=== PATIENT | male | born 1965 | race Caucasian/White ===

== ENCOUNTER 2016-08-25 20:32 | Emergency (ER) | payer MEDICARE, OTHER ==
[2016-08-25] MEDS ORDERED: SODIUM CHLORIDE 0.9% 1000ML 1,000 ML IVS ONE (21:10)
[2016-08-25] MEDS ORDERED: hydrOXYzine HCl 25 MG TAB PO ONE (21:26)
[2016-08-25] MEDS ORDERED: ALUMINUM & MAGNESIUM HYDROXIDE 30 ML UD PO ONE (21:55)
[2016-08-25] MEDS ORDERED: PROMETHAZINE HCL 25 MG TAB PO ONE (21:55)
[2016-08-26] MEDS ORDERED: NALOXONE HCL INJ 0.4 MG/ML VIAL IV ONE ×3 (02:55→06:19)
[2016-08-26] MEDS ORDERED: SODIUM CHLORIDE 0.9% 1000ML 1,000 ML IVS ONE (03:11)
[2016-08-26] MEDS ORDERED: SODIUM CHLORIDE 0.9% 1000ML 1,000 ML ONE (03:11)
[2016-08-26] MEDS ORDERED: NALOXONE HCL INJ 0.4 MG/ML VIAL ONE (03:54)
--- NOTE | 2016-08-26 04:20 | ED.PDOC ---
History of Present Illness - General Source: patient, family Exam Limitations: no limitations - History of Present Illness Initial Comments: The patient is a 51-year-old male presenting to the emergency room after 6-8 hours of showing some mild confusion and dizziness. He has taken significantly more than his normal dose of morphine today in trying to get control of his ulnar neuropathy pain. He reports taking 8 of his 15 mg extended release morphine with the last being approximately 3 hours prior to his arrival here. He is also taking 2 of his higher dose Valium again with the last being approximately 3 hours prior to his arrival here. essentially brought him in due to confusion for fear of an overdose. There was no overdose with intent on self-harm. He is not having depression issues. He is scheduled to getan ulnar nerve release in the near future. Upon arrival here he has a little bit drowsy. He is talking to his and making perfect sense when I see him. vital signs are reassuring including oxygen saturations greater than 95% on room air. The patient is normotensive. He is ambulatory. No evidence of any trauma. He does have some mild nausea and he does have some mild itching which are certainly no surprise given the doses of medications he is taking. He is having some mild reflux symptoms currently to go along with it. EKG was performed for completion sake essentially. Timing/Duration: 4-6 hours Severity: moderate Improving Factors: nothing Worsening Factors: nothing Associated Symptoms: malaise, weakness <John Barroso - Last Filed: 08/26/16 06:53> <Gabriel Winston - Last Filed: 08/26/16 09:05> - General Chief Complaint: Drug or Alcohol Abuse Stated Complaint: Lethargy Time Seen by Provider: 08/25/16 20:37 - History of Present Illness Allergies/Adverse Reactions: Allergies Sulfa Antibiotics Adverse Reaction (Verified 05/07/16 20:33) Home Medications: Ambulatory Orders Bupropion HCl [Wellbutrin Xl] 150 mg PO DAILY 02/18/16 Cholecalciferol [Vitamin D3] 1,000 unit PO DAILY 02/18/16 Simvastatin [Zocor] 20 mg PO DAILY 02/18/16 Zolpidem Tartrate [Ambien Cr] 12.5 mg PO BEDTIME 02/18/16 Morphine Sulfate [Morphine Sulfate ER] 15 mg PO PRN PRN 08/25/16 diazePAM [Valium] 10 mg PO BID PRN 08/25/16 Review of Systems - Review of Systems Constitutional: States: malaise EENTM: States: no symptoms reported Respiratory: States: no symptoms reported Cardiology: States: chest pain - with his reflux symptoms Gastrointestinal/Abdominal: States: nausea Genitourinary: States: no symptoms reported Musculoskeletal: States: other - hronic pain Skin: States: other - diffuse itching but no rash Neurological: States: weakness - mild and generalized. Sleepy. Endocrine: States: no symptoms reported All other Systems: No Change from Baseline <John Barroso - Last Filed: 08/26/16 06:53> Past Medical History (General) - Patient Medical History Hx Seizures: No Hx Stroke: No Hx Dementia: No Hx Asthma: No Hx of COPD: No Hx Cardiac Disorders: No Hx Congestive Heart Failure: No Hx Pacemaker: No Hx Hypertension: No Hx Thyroid Disease: No Hx Diabetes: No Hx Gastroesophageal Reflux: No Hx Renal Disease: No Hx Cancer: No Hx of HIV: No Hx Hepatitis C: No Hx MRSA: No - Vaccination History Hx Tetanus, Diphtheria Vaccination: Yes Hx Influenza Vaccination: No Hx Pneumococcal Vaccination: No Immunizations Up to Date: Yes - Social History Hx Tobacco Use: Yes Hx Chewing Tobacco Use: No Hx Alcohol Use: Yes - social none today Hx Substance Use: No Hx Substance Use Treatment: No Hx Depression: No Hx Physical Abuse: No Hx Emotional Abuse: No Hx Suspected Abuse: No - Female History Patient : No <John Barroso - Last Filed: 08/26/16 06:53> Family Medical History - Family History Father Hx Family Hypertension: Yes <Naun Barrosolesley Smith - Last Filed: 08/26/16 06:53> Physical Exam - Physical Exam General Appearance: Alert, Comfortable, No apparent distress Eye Exam: bilateral normal Ears, Nose, Throat: normal ENT inspection, normal pharynx Neck: non-tender, supple Respiratory: chest non-tender, lungs clear, normal breath sounds, no respiratory distress, no accessory muscle use - the patient is taking good deep breaths. No rales. 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, alert, normal mood/affect - again mildly drowsy, oriented x 3 Skin Exam: normal color Comments: Vital Signs - 24 hr 08/25/16 08/25/16 08/25/16 20:41 20:42 21:43 Temperature 97.2 F L Pulse Rate 88 Pulse Rate [ 88 88 68 Right Radial] Respiratory 16 16 20 Rate Blood Pressure 129/72 111/72 [Right Arm] O2 Sat by Pulse 99 98 Oximetry 08/25/16 08/25/16 08/26/16 22:00 23:00 00:00 Temperature Pulse Rate Pulse Rate [ 70 80 80 Right Radial] Respiratory 16 16 16 Rate Blood Pressure 113/72 108/60 102/68 [Right Arm] O2 Sat by Pulse 98 96 95 Oximetry 08/26/16 08/26/16 08/26/16 01:00 02:00 03:03 Temperature Pulse Rate Pulse Rate [ 80 80 80 Right Radial] Respiratory 16 16 16 Rate Blood Pressure 116/90 110/79 107/60 [Right Arm] O2 Sat by Pulse 96 95 96 Oximetry 08/26/16 08/26/16 03:10 03:34 Temperature Pulse Rate Pulse Rate [ 64 65 Right Radial] Respiratory 12 12 Rate Blood Pressure 78/40 109/71 [Right Arm] O2 Sat by Pulse 93 L 95 Oximetry <John Barroso L - Last Filed: 08/26/16 06:53> Progress - Progress Progress: 08/26/16 04:24 the patient is a 51-year-old male presenting with an opiate and benzodiazepine overdose. The patient is being monitored for extended period of time due to the morphine being extended release. The patient has shown expected drowsiness but has held his oxygen saturations consistently above 93% on room air. We have encouraged him for a little bit of supplemental oxygen but he keeps pulling it off. Around 3 AM his blood pressures started dropping some. He was given a second liter of IV fluids. Blood pressures have come back up a little bit but not to the point where we are comfortable. The patient was given 0.4 mg of Narcan IV antibiotic. he arouses more easily. He knows where he is and what is going on. blood pressures have corrected with systolic blood pressures being above 100. He is taking good deep breaths. where as lab work to this point had seemed unnecessary, we are going to go ahead and check basic laboratory panels and make sure we are not having any significant undetected changes to this point. If his bicarbonate level is low then we will proceed with an ABG to evaluate for the possibility of CO2 retention. Again at this time he is drowsy but easily rousable, cooperative and oriented and in no clinical obvious distress. He will not receive further IV fluids. obviously, the small dose of Narcan is not meant as a full reversal dose of the 120 mg of morphine he has taken over the last day. That is not our goal. It is simply to maintain the patient in a easily rousable to mildly agitated state to prevent hypotension and hypoventilation. repeat small Narcan doses will be used as needed to this end. We will continue to replace the oxygen cannula to try to keep saturations greater than 95%, though he is still largely achieving this without supplemental oxygen. No evidence of fluid overload on his pulmonary exam at this time. time is 6:50 AM. The patient has required some repeat dosings of the Narcan. We are going to place him on a low-dose Narcan drip at a milligram per hour for the next several hours anyway. Hypotension has not returned however when the Narcan wears off, his respiratory rate drops to 8-10 breaths per minute and his oxygen saturations drop to around 90%. laboratory work including ABG is reassuring. PH is normal along with a PaCO2 that is only very slightly elevated. The patient will likely require 3-4 hours for further monitoring based on his last ingestion. The patient will be signed off to Dr. Winston for further management. - Results/Orders Results/Orders: Laboratory Tests 08/25/16 08/26/16 08/26/16 21:00 04:12 05:00 WBC 3.9 L RBC 4.03 L Hgb 12.6 L Hct 36.9 L MCV 91.5 MCH 31.2 H MCHC 34.1 RDW 13.3 Plt Count 200 MPV 7.9 Absolute Neuts (auto) 1.10 L Absolute Lymphs (auto) 2.30 Absolute Monos (auto) 0.40 Absolute Eos (auto) 0.10 Absolute Basos (auto) 0.00 Neutrophils % 28.1 L Lymphocytes % 57.5 H Monocytes % 9.9 H Eosinophils % 3.3 Basophils % 1.2 pCO2 47 pO2 65 L HCO3 25.1 ABG pH 7.350 ABG O2 Saturation 94.1 L ABG Base Excess -0.3 ABG Deoxyhemoglobin 5.8 H Oxyhemoglobin % 92.1 L Carboxyhemoglobin % 1.2 Methemoglobin % Sat 0.8 Calc Total Hemoglobin 11.9 L Sodium 140 Potassium 3.9 Chloride 110 Carbon Dioxide 26 Anion Gap 7.9 L BUN 14 Creatinine 1.06 BUN/Creatinine Ratio 13.2 Random Glucose 81 Serum Osmolality 278.9 Calcium 8.3 L Total Bilirubin 0.6 AST 17 ALT 21 Alkaline Phosphatase 70 Creatine Kinase 95 CK-MB (CK-2) 0.9 CK-MB (CK-2) % Not Reportable Troponin I < 0.02 B-Natriuretic Peptide < 5.0 Serum Total Protein 5.7 L Albumin 3.4 Globulin 2.3 Albumin/Globulin Ratio 1.5 Urine Opiates Screen Positive H Urine Barbiturates Negative Ur Phencyclidine Scrn Negative U Amphetamin/Meth Scrn Negative U Benzodiazepines Scrn Positive H U Cocaine Metab Screen Negative U Cannabinoids Screen Negative EKG shows normal sinus rhythm. axis has a slight left shift. Early right bundle branch block noted. No acute ST segment changes concerning for ischemia. This is consistent with an EKG from March 2016. <John Barroso - Last Filed: 08/26/16 06:53> - Progress Progress: 08/26/16 09:01 Narcan drip was stopped at 8:00 am . At 9 am the patient was alert and at his baseline. His vital signs were stable and within normal limits for a full hour. ER warnings given and the patient has a significant other that is staying with him. <Gabriel Winston - Last Filed: 08/26/16 09:05> Departure <John Barroso - Last Filed: 08/26/16 06:53> - Departure Diet: resume usual diet Activity: increase activity as tolerated <Gabriel Winston - Last Filed: 08/26/16 09:05> - Departure Clinical Impression: Narcosis due to intentional non-suicidal narcotic use Disposition: Discharge to Home or Self Care Condition: Good Referrals: Jose Ceballos MD [Primary Care Provider] - 1-2 Weeks Home Medications: Ambulatory Orders Bupropion HCl [Wellbutrin Xl] 150 mg PO DAILY 02/18/16 Cholecalciferol [Vitamin D3] 1,000 unit PO DAILY 02/18/16 Simvastatin [Zocor] 20 mg PO DAILY 02/18/16 Zolpidem Tartrate [Ambien Cr] 12.5 mg PO BEDTIME 02/18/16 Morphine Sulfate [Morphine Sulfate ER] 15 mg PO PRN PRN 08/25/16 diazePAM [Valium] 10 mg PO BID PRN 08/25/16 Additional Instructions: Return to the ER for slow breathing, sleepiness, lethargy, or altered mental status. Refrain from use of pain medications today. Addendum entered and electronically signed by John Barroso MD 08/26/16 06:54 : Departure - Departure Disposition: Discharge to Home or Self Care Referrals: Jose Ceballos MD [Primary Care Provider] - 1-2 Weeks Home Medications: Ambulatory Orders Bupropion HCl [Wellbutrin Xl] 150 mg PO DAILY 02/18/16 Cholecalciferol [Vitamin D3] 1,000 unit PO DAILY 02/18/16 Simvastatin [Zocor] 20 mg PO DAILY 02/18/16 Zolpidem Tartrate [Ambien Cr] 12.5 mg PO BEDTIME 02/18/16 Morphine Sulfate [Morphine Sulfate ER] 15 mg PO PRN PRN 08/25/16 diazePAM [Valium] 10 mg PO BID PRN 08/25/16 ED Addendum - ED Addendum Addendum: critical care time spent by me on this overdose patient with respiratory depression is 40 minutes excluding other billable procedures.
[2016-08-26] MEDS ORDERED: NALOXONE HCL IV ONE (06:44)
[2016-08-26] MEDS ORDERED: SODIUM CHLORIDE 0.9% IV ONE (06:44)
[2016-08-26] MEDS ORDERED: SODIUM CHLORIDE 0.9% 500ML 500 ML ONE (06:53)
[2016-08-26] MEDS ORDERED: NALOXONE HCL INJ 1 MG/ML SYG ONE (06:53)
[2016-08-26 09:19] VITALS: BP 117/78; TEMP 97; O2SAT 95
== END 2016-08-26 09:24 | disposition home or self-care (01) ==
LOC: ER 20:32
DX: T40.2X1A Poisoning by other opioids, accidental (unintentional), initial encounter (principal); T42.4X1A Poisoning by benzodiazepines, accidental (unintentional), initial encounter; J70.4 Drug-induced interstitial lung disorders, unspecified; R06.89 Other abnormalities of breathing; G56.20 Lesion of ulnar nerve, unspecified upper limb; Z79.899 Other long term (current) drug therapy; Z88.2 Allergy status to sulfonamides; Z87.891 Personal history of nicotine dependence; I45.10 Unspecified right bundle-branch block
CPT/HCPCS: 80053; 80307; 82550; 82553; 83880; 84484; 85025; 93005; J2310; J7030; J7040; Q0169

== ENCOUNTER 2016-09-02 00:15 | Emergency (ER) | payer MEDICARE, OTHER ==
[2016-09-02] MEDS ORDERED: KETOROLAC TROMETHAMINE INJ 30 MG/ML VIAL IV ONE (00:54)
[2016-09-02] MEDS ORDERED: methylPREDNISolone SODIUM SUC 125 MG/2 ML VIAL IV ONE (00:54)
--- NOTE | 2016-09-02 00:54 | ED.PDOC ---
History of Present Illness - General Chief Complaint: Back Pain or Injury Stated Complaint: right arm and neck pain, stumbling, falls Time Seen by Provider: 09/02/16 00:16 - History of Present Illness Allergies/Adverse Reactions: Allergies Sulfa Antibiotics Adverse Reaction (Verified 05/07/16 20:33) Home Medications: Ambulatory Orders Bupropion HCl [Wellbutrin Xl] 150 mg PO DAILY 02/18/16 Cholecalciferol [Vitamin D3] 1,000 unit PO DAILY 02/18/16 Simvastatin [Zocor] 20 mg PO DAILY 02/18/16 Zolpidem Tartrate [Ambien Cr] 12.5 mg PO BEDTIME 02/18/16 Morphine Sulfate [Morphine Sulfate ER] 15 mg PO PRN PRN 08/25/16 diazePAM [Valium] 10 mg PO BID PRN 08/25/16 Past Medical History (General) - Patient Medical History Hx Seizures: No Hx Stroke: No Hx Dementia: No Hx Asthma: No Hx of COPD: No Hx Cardiac Disorders: No Hx Congestive Heart Failure: No Hx Pacemaker: No Hx Hypertension: No Hx Thyroid Disease: No Hx Diabetes: No Hx Gastroesophageal Reflux: No Hx Renal Disease: No Hx Cancer: No Hx of HIV: No Hx Hepatitis C: No Hx MRSA: No Surgical History: other - Vaccination History Hx Tetanus, Diphtheria Vaccination: Yes Hx Influenza Vaccination: No Hx Pneumococcal Vaccination: No Immunizations Up to Date: Yes - Social History Hx Tobacco Use: Yes Cigarettes Packs Per Day: 1 Hx Chewing Tobacco Use: No Hx Alcohol Use: Yes - social none today Hx Substance Use: No Hx Substance Use Treatment: No Hx Depression: No Hx Physical Abuse: No Hx Emotional Abuse: No Hx Suspected Abuse: No - Female History Patient : No Family Medical History - Family History Father Hx Family Hypertension: Yes Progress - Progress Progress: 09/02/16 01:33 Had extensive conversation with patient and regarding his narcotic and controlled medication use. He denies taking any Morphine today but took 2 Valium and 4 ambien. Could not pull him up in the state controlled substances database, said no report meaning no medications filled in the past year. Called [place] in [place]. Report filled #[id number] Morphine on 08/15/16 and stopped Ambien and Valium. Gave Steroids and Toradol. Will give 1mg only of Dilaudid and will d/c home. Stressed that ER is not the appropriate location for his chronic pain treatment since he is on medication and was seen here a week ago with an overdose. Departure - Departure Clinical Impression: Chronic neck pain Time of Disposition: 01:37 Disposition: Discharge to Home or Self Care Condition: Good Departure Forms: ED Discharge - Pt. Copy, Patient Portal Self Enrollment Instructions: Chronic Neck Pain Diet: resume usual diet Activity: increase activity as tolerated Referrals: Jose Ceballos MD [Primary Care Provider] - 1-2 Days Home Medications: Ambulatory Orders Bupropion HCl [Wellbutrin Xl] 150 mg PO DAILY 02/18/16 Cholecalciferol [Vitamin D3] 1,000 unit PO DAILY 02/18/16 Simvastatin [Zocor] 20 mg PO DAILY 02/18/16 Zolpidem Tartrate [Ambien Cr] 12.5 mg PO BEDTIME 02/18/16 Morphine Sulfate [Morphine Sulfate ER] 15 mg PO PRN PRN 08/25/16 diazePAM [Valium] 10 mg PO BID PRN 08/25/16 Additional Instructions: Call Neurosurgeon and pain management in morning to arrange follow up.
[2016-09-02] MEDS ORDERED: HYDROmorphone HCL INJ 2 MG/ML VIAL IV ONE (01:32)
[2016-09-02 01:54] VITALS: BP 115/93; TEMP 98.2; O2SAT 96
== END 2016-09-02 01:57 | disposition home or self-care (01) ==
LOC: ER 00:15
DX: G89.29 Other chronic pain (principal); M54.2 Cervicalgia; F17.210 Nicotine dependence, cigarettes, uncomplicated; Z88.2 Allergy status to sulfonamides; Z79.899 Other long term (current) drug therapy; Z91.81 History of falling
CPT/HCPCS: J1170; J1885; J2930

== ENCOUNTER 2016-10-16 16:28 | Emergency (ER) | payer MEDICARE, OTHER ==
[2016-10-16] MEDS ORDERED: ASPIRIN TABLET 325 MG TAB PO ONE (16:44)
[2016-10-16] MEDS ORDERED: SODIUM CHLORIDE 0.9% (FLUSH) 10 ML SYG IV PRN (16:44)
[2016-10-16] MEDS ORDERED: ONDANSETRON INJ 4 MG/2 ML VIAL IV ONE ×2 (16:44→18:14)
[2016-10-16] MEDS ORDERED: MORPHINE SULFATE INJ 10 MG/ML VIAL IV ONE ×2 (16:47→17:09)
--- NOTE | 2016-10-16 16:54 | ED.PDOC ---
History of Present Illness - General Chief Complaint: Chest Pain/SD Stated Complaint: chest discomfort Time Seen by Provider: 10/16/16 16:43 Source: patient, family Exam Limitations: no limitations Additional Information: 2 DAYS OF CONSTANT CHEST PAIN, FATIGUE SWEATS, SOB, HE, COUGH, NAUSEA. PMH: ADDERALL FOR ADHD. CARDIAC HX: HEART CATH 20 YRS AGO FOR CP, WAS NEG. SH: SMOKES 1/3 TO 1/2 PPD. - History of Present Illness Timing/Duration: days Severity: severe Location: substernal, back Activities at Onset: none Improving Factors: nothing Worsening Factors: movement Nitro Today/Relief: no nitro taken today Aspirin Treatment Today: no aspirin today Associated Symptoms: chest pain, cough, diaphoresis, headaches, malaise, nausea/ vomiting, shortness of breath Allergies/Adverse Reactions: Allergies Sulfa Antibiotics Adverse Reaction (Verified 10/16/16 16:41) Home Medications: Ambulatory Orders Bupropion HCl [Wellbutrin Xl] 150 mg PO DAILY 02/18/16 Simvastatin [Zocor] 20 mg PO DAILY 02/18/16 Amphetamine-Dextroamphetamine [Adderall] 20 mg PO DAILY 10/16/16 Venlafaxine Xr [Effexor XR] 75 mg PO DAILY 10/16/16 Review of Systems - Review of Systems Constitutional: States: diaphoresis, weakness. Denies: chills, fever EENTM: Denies: ear pain, nose congestion Respiratory: States: cough, short of breath. Denies: wheezing Cardiology: States: chest pain. Denies: edema, palpitations, syncope Gastrointestinal/Abdominal: States: no symptoms reported Genitourinary: States: no symptoms reported Musculoskeletal: States: back pain, neck pain Skin: States: no symptoms reported Neurological: States: headache Endocrine: States: no symptoms reported Hematologic/Lymphatic: States: no symptoms reported All other Systems: Reviewed and Negative Past Medical History (General) - Patient Medical History Hx Seizures: No Hx Stroke: No Hx Dementia: No Hx Asthma: No Hx of COPD: No Hx Cardiac Disorders: Yes - high cholesterol Hx Congestive Heart Failure: No Hx Pacemaker: No Hx Hypertension: No Hx Thyroid Disease: No Hx Diabetes: No Hx Gastroesophageal Reflux: No Hx Renal Disease: No Hx Cancer: No Hx of HIV: No Hx Hepatitis C: No Hx MRSA: No Surgical History: appendectomy - Vaccination History Hx Tetanus, Diphtheria Vaccination: Yes Hx Influenza Vaccination: No Hx Pneumococcal Vaccination: No - Social History Hx Tobacco Use: Yes Hx Chewing Tobacco Use: No Hx Alcohol Use: Yes - social none today Hx Substance Use: No Hx Substance Use Treatment: No Hx Depression: No Hx Physical Abuse: No Hx Emotional Abuse: No Hx Suspected Abuse: No - Female History Patient : No Family Medical History - Family History Father Hx Family Hypertension: Yes Physical Exam - Physical Exam General Appearance: Alert, Other - UNCOMFORTABLE Eyes, Ears, Nose, Throat Exam: PERRL/EOMI, normal ENT inspection, TMs normal, pharynx normal Neck: supple, other - NO JVD, NO BRUIT Respiratory: chest non-tender, lungs clear, normal breath sounds, no respiratory distress, no accessory muscle use Cardiovascular/Chest: normal peripheral pulses, regular rate, rhythm, no edema, no gallop, no JVD, no murmur Peripheral Pulses: radial,right: 2+, radial,left: 2+ Gastrointestinal/Abdominal: normal bowel sounds, non tender, soft Extremity: normal range of motion, non-tender, no pedal edema, no calf tenderness 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 TOBACCO USE DISORDER TACHYPNEA (RR 22) 10/16/16 17:04 10/16/16 18:57 CHEST PAIN AND NAUSEA BETTER. ALL WNL: CXR, EKG, CBC, CMP, D-DIMER, BNP, COAGS (EXCEPT CK), CARDIAC ENZYMES. CONTINUOUS CHEST PAIN X 2 DAYS, THUS IF WERE SD THE CARDIAC ENZYMES WOULD BE ELEVATED BY NOW, THUS SERIAL ENZYMES X 4 OVER 7 HRS IS NOT INDICATED. I AM JUST CHECKING A 2ND SET OF ENZYMES FOR COMPLETENESS. CREATINE KINASE IS SLIGHTLY HIGH (BUT NOT HIGH ENOUGH FOR RHABDOMYOLYSIS CONCERNS) AND STILL C/O FEELING DIAPHORETIC, THUS CHECKING TSH. IF TSH AND CARD ENZ NEG, THEN SAFE FOR DC TO HOME WITH F/U WITH PCP FOR FURTHER EVALUATION. 10/16/16 19:10 PT JUST REMEMBERED HE HASN'T TAKEN HIS EFFEXOR FOR THE PAST FEW DAYS. N/V, PÉREZ, DIZZINESS ARE SX OF ABRUPT CESSATION. 10/16/16 19:18 PT STATES HIS CP IS GONE BUT HEADACHE RETURNED. IT'S LOCATED BL BEHIND THE EYES. WILL GIVE IMITREX AND 02 IN EVENT IT IS CLUSTER PÉREZ. (NOTE: INTERACTION WARNING OF IMITREX AND EFFEXOR FOR POTENTIAL RISK OF SEROTONIN SYNDROME, BUT HAS NOT BEEN OFF HIS EFFEXOR, THUS HE'S NOT AT RISK FOR SEROTONIN SYNDROME.) 10/16/16 21:04 PÉREZ RESOLVED. TSH WNL. REPEAT CARD ENZ NEG. SAFE FOR DC TO HOME. Departure - Departure Clinical Impression: Atypical chest pain, Diaphoresis, Dyspnea, Nausea, Tobacco use disorder, Headache Disposition: Discharge to Home or Self Care Departure Forms: ED Discharge - Pt. Copy, Patient Portal Self Enrollment Instructions: DI for Atypical Chest Pain Diet: regular diet Activity: increase activity as tolerated Referrals: Jose Ceballos MD [Primary Care Provider] - 1-5 Days Home Medications: Ambulatory Orders Bupropion HCl [Wellbutrin Xl] 150 mg PO DAILY 02/18/16 Simvastatin [Zocor] 20 mg PO DAILY 02/18/16 Amphetamine-Dextroamphetamine [Adderall] 20 mg PO DAILY 10/16/16 Venlafaxine Xr [Effexor XR] 75 mg PO DAILY 10/16/16 Additional Instructions: Please resume your Effexor and avoid abruptly stopping it or any other medication without your regular doctor's direction. Medicines such as Effexor need to be tapered otherwise they can cause side effects such as headache, nausea, vomiting, dizziness. Please attempt to discontinue smoking. I hope you feel better soon.
[2016-10-16] MEDS ORDERED: NITROGLYCERIN 0.4 MG 25 EA TAB SL ONE (17:09)
--- NOTE | 2016-10-16 17:16 | RAD ---
EXAM DESCRIPTION: Chest,1 View CLINICAL HISTORY: 51 years Male, CHEST PAIN COMPARISON: March 28, 2016 TECHNIQUE: AP portable chest. FINDINGS: Fair expansion of the lungs is evident without consolidation, layering effusion, or large mass. Heart size and vascularity appear normal for AP technique and degree of inspiration. The aortic arch and descending aorta are modestly tortuous No gross bony, hilar, or mediastinal abnormalities are noted. IMPRESSION: Normal chest, one view Electronically signed by: Victoriano Betts MD 10/16/2016 5:15 PM CDT
[2016-10-16 19:05] VITALS: TEMP 97.7
[2016-10-16] MEDS ORDERED: SUMAtriptan SUCCINATE INJ 6 MG/0.5 ML VIAL SUBCU ONE ×2 (19:19→19:20)
[2016-10-16 21:16] VITALS: BP 125/84; O2SAT 95
== END 2016-10-16 21:10 | disposition home or self-care (01) ==
LOC: ER 16:28
DX: R07.89 Other chest pain (principal); R61 Generalized hyperhidrosis; R51 Headache; R06.00 Dyspnea, unspecified; F17.200 Nicotine dependence, unspecified, uncomplicated; F90.9 Attention-deficit hyperactivity disorder, unspecified type; Z79.899 Other long term (current) drug therapy; Z88.2 Allergy status to sulfonamides; E78.00 Pure hypercholesterolemia, unspecified
CPT/HCPCS: 36415; 71010; 80048; 82550; 82553; 83880; 84443; 84484; 85025; 85379; 85610; 85730; 93005; 94760; J2270; J2405; J3030

== ENCOUNTER 2016-11-09 17:46 | Emergency (ER) | payer MEDICARE, OTHER ==
[2016-11-09 18:02] VITALS: O2SAT 97
[2016-11-09] MEDS ORDERED: HYDROmorphone HCL INJ 2 MG/ML VIAL IM ONE (18:02)
--- NOTE | 2016-11-09 18:17 | ED.PDOC ---
History of Present Illness - General Source: patient, RN notes reviewed, Vital Signs reviewed Exam Limitations: no limitations - History of Present Illness Initial Comments: Woke up last night with right shoulder pain. Feels it has been moving forward through the day and is concerned it is dislocated. He has already had 3 surgeries on his shoulder. He is getting some numbness and tingling down his arm. Pain is worse with movement. Occurred: yesterday Pain - Upper Extremity: severe: Shoulder, right Method of Injury: unknown Improving Factors: immobilization Worsening Factors: movement <Neelam Patel - Last Filed: 11/09/16 18:53> <Triny Merchant - Last Filed: 11/09/16 20:36> - General Chief Complaint: Upper Extremity Injury Stated Complaint: right shoulder pain Time Seen by Provider: 11/09/16 17:58 - History of Present Illness Allergies/Adverse Reactions: Allergies Sulfa Antibiotics Adverse Reaction (Verified 10/16/16 16:41) Home Medications: Ambulatory Orders Bupropion HCl [Wellbutrin Xl] 150 mg PO DAILY 02/18/16 Simvastatin [Zocor] 20 mg PO DAILY 02/18/16 Amphetamine-Dextroamphetamine [Adderall] 20 mg PO DAILY 10/16/16 Venlafaxine Xr [Effexor XR] 75 mg PO DAILY 10/16/16 Naproxen [Naprosyn] 500 mg PO BID #30 tab 11/09/16 tiZANidine [Zanaflex] 4 mg PO TID PRN #30 tab 11/09/16 Review of Systems - Review of Systems Constitutional: States: no symptoms reported Respiratory: States: no symptoms reported Cardiology: States: no symptoms reported Musculoskeletal: States: see HPI, joint pain - right shoulder Skin: States: no symptoms reported Neurological: States: numbness, tingling. Denies: headache, weakness All other Systems: No Change from Baseline <Neelam Patel - Last Filed: 11/09/16 18:53> Past Medical History (General) - Patient Medical History Hx Seizures: No Hx Stroke: No Hx Dementia: No Hx Asthma: No Hx of COPD: No Hx Cardiac Disorders: Yes - high cholesterol Hx Congestive Heart Failure: No Hx Pacemaker: No Hx Hypertension: No Hx Thyroid Disease: No Hx Diabetes: No Hx Gastroesophageal Reflux: No Hx Renal Disease: No Hx Cancer: No Hx of HIV: No Hx Hepatitis C: No Hx MRSA: No - Vaccination History Hx Tetanus, Diphtheria Vaccination: Yes Hx Influenza Vaccination: No Hx Pneumococcal Vaccination: No - Social History Hx Tobacco Use: Yes Hx Chewing Tobacco Use: No Hx Alcohol Use: Yes - social none today Hx Substance Use: No Hx Substance Use Treatment: No Hx Depression: No Hx Physical Abuse: No Hx Emotional Abuse: No Hx Suspected Abuse: No - Female History Patient : No <Neelam Patel - Last Filed: 11/09/16 18:53> Family Medical History - Family History Father Hx Family Hypertension: Yes <Neelam Patel - Last Filed: 11/09/16 18:53> Physical Exam - Physical Exam General Appearance: Alert, No apparent distress, Well Developed, Well Groomed, Well Hydrated, Well Nourished, Other - in obvious pain Neck: full range of motion, supple Shoulder Exam: limited ROM - due to pain, pain, soft tissue tenderness, swelling Elbow/Forearm Exam: normal inspection, non-tender, no evidence of injury, normal ROM Wrist Exam: normal inspection, non-tender, no evidence of injury, normal ROM Neuro/Tendon: normal sensation, normal motor functions, normal tendon functions Mental Status: alert, oriented x 3 Skin Exam: normal color, warm/dry <Neelam Patel - Last Filed: 11/09/16 18:53> Progress - Progress Progress: 11/09/16 18:46 Discussed X-ray results with patient and ? of acute vs chronic humeral neck fracture. Patient now reports he did fall yesterday from standing onto his elbows. He did not think the fall was a big deal so did not think to mention it. Will get CT to confirm if acute or chronic fracture. 11/09/16 18:[address] Merchant @ 1900 <Neelam Patel - Last Filed: 11/09/16 18:53> - EKG/XRAY/CT XRAY: Right shoulder - Acute vs. chronic humeral neck fracture CT: Right shoulder: no acute process, chronic shoulder pathology CT Ordered: Yes <Triny Merchant - Last Filed: 11/09/16 20:36> Departure <Neelam Patel - Last Filed: 11/09/16 18:53> - Departure Time of Disposition: 20:29 Diet: resume usual diet <MayurTriny Rahul - Last Filed: 11/09/16 20:36> - Departure Clinical Impression: Sprain and strain of shoulder and upper arm, Tendinopathy of right shoulder Disposition: Discharge to Home or Self Care Condition: Fair Departure Forms: ED Discharge - Pt. Copy, Patient Portal Self Enrollment Instructions: Shoulder Tendinopathy, DI for Shoulder Tendinopathy Referrals: Jose Ceballos MD [Primary Care Provider] - 1-2 Weeks Prescriptions: Naproxen [Naprosyn] 500 mg PO BID #30 tab tiZANidine [Zanaflex] 4 mg PO TID PRN #30 tab PRN Reason: Muscle Spasms Home Medications: Ambulatory Orders Bupropion HCl [Wellbutrin Xl] 150 mg PO DAILY 02/18/16 Simvastatin [Zocor] 20 mg PO DAILY 02/18/16 Amphetamine-Dextroamphetamine [Adderall] 20 mg PO DAILY 10/16/16 Venlafaxine Xr [Effexor XR] 75 mg PO DAILY 10/16/16 Naproxen [Naprosyn] 500 mg PO BID #30 tab 11/09/16 tiZANidine [Zanaflex] 4 mg PO TID PRN #30 tab 11/09/16 Additional Instructions: Follow up with PCP or ortho for further evaluation of shoulder. No heavy lifting. Follow up in ED for pain not controlled with pain medication.
--- NOTE | 2016-11-09 18:42 | RAD ---
Two-view shoulder x-ray INDICATION: Right shoulder pain, dislocation COMPARISON: None available. TECHNIQUE: 3 views of the right shoulder were performed. FINDINGS: There is cortical irregularity of the humeral head. No definite dislocation. Rotator cuff repair. IMPRESSION: No dislocation. Probable chronic right humeral neck fracture. Recommend clinical correlation. Findings discussed with Dr. Patel over the phone by Dr. Narayanan on 11/09/2016 at 6:41 PM. Electronically signed by: Jean-Claude Narayanan MD 11/09/2016 6:41 PM CDT
[2016-11-09] MEDS ORDERED: HYDROmorphone HCL INJ 2 MG/ML VIAL IV ONE (18:51)
--- NOTE | 2016-11-09 19:56 | CT ---
EXAM DESCRIPTION: Upper Extremity CLINICAL HISTORY: 51 years Male, R shoulder pain - ? acute vs chronic fracture COMPARISON: RIGHT shoulder radiographs dated today. TECHNIQUE: 2.5 mm axial images through the RIGHT shoulder were performed in the absence of contrast. Coronal and sagittal reconstructions were obtained. This exam was performed according to our departmental dose-optimization program which includes use of Automated Exposure Control, adjustment of the mA and/or kV according to patient size and/or use of iterative reconstruction technique. FINDINGS: Deformity of the RIGHT humeral head is chronic with large osteophytes projecting medially and laterally off the humeral head and some underlying cystic change both within the humeral head and glenoid. Joint space narrowing involves the glenohumeral joint. Surgical material resides within the glenoid. No acute fracture is present. The acromioclavicular joint is intact. No suspicious calcification is seen. IMPRESSION: Chronic changes at the RIGHT shoulder. No acute fracture. Electronically signed by: Destini Whitman MD 11/09/2016 7:56 PM CDT
[2016-11-09] MEDS ORDERED: ORPHENADRINE CITRATE 30 MG/ML AMP IV ONE (20:08)
[2016-11-09] MEDS ORDERED: KETOROLAC TROMETHAMINE INJ 30 MG/ML VIAL IV ONE (20:09)
[2016-11-09] MEDS ORDERED: HYDROcodone 10MG/APAP 325MG 1 EA TAB PO ONE (20:09)
[2016-11-09] MEDS ORDERED: HYDROCOD/APAP 10/325 (ER DISP) # 3 tablets PO ONE (20:33)
[2016-11-09 20:45] VITALS: BP 122/66; TEMP 97
== END 2016-11-09 20:41 | disposition home or self-care (01) ==
LOC: ER 17:46
DX: S46.919A Strain of unspecified muscle, fascia and tendon at shoulder and upper arm level, unspecified arm, initial encounter (principal); M75.91 Shoulder lesion, unspecified, right shoulder; E78.00 Pure hypercholesterolemia, unspecified; Z79.899 Other long term (current) drug therapy; Z88.2 Allergy status to sulfonamides; W19.XXXA Unspecified fall, initial encounter
CPT/HCPCS: 73030; 73200; J1170; J1885; J2360

== ENCOUNTER 2016-11-23 18:36 | Emergency (ER) | payer MEDICARE, OTHER ==
--- NOTE | 2016-11-23 19:06 | ED.PDOC ---
History of Present Illness - General Chief Complaint: Skin/Abrasion/Tear Stated Complaint: finger swelling, rash Time Seen by Provider: 11/23/16 19:01 Source: patient - History of Present Illness Initial Comments: Surinder Parikh 51 y/o male stated that his right thumb was tender and red staring 2 days ago also had allergic reaction to percocet that was prescribed by his dentist. Occurred: other - 2 days ago Pain - Upper Extremity: mild: Hand, right - thumb Method of Injury: other - no injury Improving Factors: nothing Worsening Factors: movement Allergies/Adverse Reactions: Allergies Acetaminophen [From Percocet] Allergy (Verified 11/23/16 18:53) Oxycodone [From Percocet] Allergy (Verified 11/23/16 18:53) Sulfa Antibiotics Adverse Reaction (Verified 11/23/16 18:53) Home Medications: Ambulatory Orders Bupropion HCl [Wellbutrin Xl] 150 mg PO DAILY 02/18/16 Simvastatin [Zocor] 20 mg PO DAILY 02/18/16 Amphetamine-Dextroamphetamine [Adderall] 20 mg PO DAILY 10/16/16 Venlafaxine Xr [Effexor XR] 75 mg PO DAILY 10/16/16 Naproxen [Naprosyn] 500 mg PO BID #30 tab 11/09/16 tiZANidine [Zanaflex] 4 mg PO TID PRN #30 tab 11/09/16 Amoxicillin [Amoxil] 1,000 mg PO BID #30 cap 11/23/16 diphenhydrAMINE HCL [Benadryl] 25 mg PO Q6HRS PRN #30 cap 11/23/16 predniSONE 10 mg PO DAILY #7 tab 11/23/16 Review of Systems - Review of Systems Constitutional: States: no symptoms reported EENTM: States: no symptoms reported Respiratory: States: no symptoms reported Cardiology: States: no symptoms reported Gastrointestinal/Abdominal: States: no symptoms reported Genitourinary: States: no symptoms reported Musculoskeletal: States: no symptoms reported Skin: States: change in hair/nails - erthema and tenderness right thumb Neurological: States: no symptoms reported Past Medical History (General) - Patient Medical History Hx Seizures: No Hx Stroke: No Hx Dementia: No Hx Asthma: No Hx of COPD: No Hx Cardiac Disorders: Yes - high cholesterol Hx Congestive Heart Failure: No Hx Pacemaker: No Hx Hypertension: No Hx Thyroid Disease: No Hx Diabetes: No Hx Gastroesophageal Reflux: No Hx Renal Disease: No Hx Cancer: No Hx of HIV: No Hx Hepatitis C: No Hx MRSA: No Surgical History: other - neck ,knee,ankle - Vaccination History Hx Tetanus, Diphtheria Vaccination: Yes Hx Influenza Vaccination: No Hx Pneumococcal Vaccination: No - Social History Hx Tobacco Use: Yes Hx Chewing Tobacco Use: No Hx Alcohol Use: Yes - social none today Hx Substance Use: No Hx Substance Use Treatment: No Hx Depression: No Hx Physical Abuse: No Hx Emotional Abuse: No Hx Suspected Abuse: No - Activities of Daily Living Patient Lives Alone: No - family Hospice Agency (if applicable):: None Grooming Ability: Independent Eating (Feeding) Ability: Independent Toileting Ability: Independent - Female History Patient is a Female of Child Bearing Age (10 -59 yrs old): No Patient : No Family Medical History - Family History Father Hx Family Hypertension: Yes Physical Exam - Physical Exam General Appearance: Alert, Anxious, No apparent distress Eyes, Ears, Nose, Throat Exam: PERRL/EOMI, normal ENT inspection, TMs normal Neck: non-tender, full range of motion, supple, normal inspection Cardiovascular/Respiratory: regular rate, rhythm, no M/R/G Abdominal Exam: non-tender, no organomegaly Back Exam: normal inspection, no CVA tenderness, no vertebral tenderness Shoulder Exam: normal inspection, no evidence of injury Elbow/Forearm Exam: normal inspection, no evidence of injury Wrist Exam: normal inspection, no evidence of injury Hand Exam: infection - right thumb tender and erythema Neuro/Tendon: normal sensation, normal motor functions Mental Status: alert, oriented x 3 Skin Exam: rash - face Departure - Departure Clinical Impression: Paronychia of thumb, right, Allergic reaction caused by a drug Time of Disposition: 19:16 Disposition: Discharge to Home or Self Care Condition: Good Departure Forms: ED Discharge - Pt. Copy, Patient Portal Self Enrollment Referrals: Jose Ceballos MD [Primary Care Provider] - 1-2 Weeks Prescriptions: diphenhydrAMINE HCL [Benadryl] 25 mg PO Q6HRS PRN #30 cap PRN Reason: Allergies Amoxicillin [Amoxil] 1,000 mg PO BID #30 cap predniSONE 10 mg PO DAILY #7 tab Home Medications: Ambulatory Orders Bupropion HCl [Wellbutrin Xl] 150 mg PO DAILY 02/18/16 Simvastatin [Zocor] 20 mg PO DAILY 02/18/16 Amphetamine-Dextroamphetamine [Adderall] 20 mg PO DAILY 10/16/16 Venlafaxine Xr [Effexor XR] 75 mg PO DAILY 10/16/16 Naproxen [Naprosyn] 500 mg PO BID #30 tab 11/09/16 tiZANidine [Zanaflex] 4 mg PO TID PRN #30 tab 11/09/16 Amoxicillin [Amoxil] 1,000 mg PO BID #30 cap 11/23/16 diphenhydrAMINE HCL [Benadryl] 25 mg PO Q6HRS PRN #30 cap 11/23/16 predniSONE 10 mg PO DAILY #7 tab 11/23/16 Additional Instructions: Follow up with primary md 11/25/2016 call for appointment if needed
[2016-11-23] MEDS ORDERED: AMOXICILLIN 500 MG CAP PO ONE (19:12)
[2016-11-23] MEDS ORDERED: DEXAMETHASONE INJ 4 MG/ML VIAL IM ONE (19:12)
[2016-11-23] MEDS ORDERED: diphenhydrAMINE HCL 25 MG CAP PO ONE (19:12)
[2016-11-23 19:28] VITALS: BP 115/79; TEMP 97.9; O2SAT 95
== END 2016-11-23 19:27 | disposition home or self-care (01) ==
LOC: ER 18:36
DX: L03.011 Cellulitis of right finger (principal); T50.905A Adverse effect of unspecified drugs, medicaments and biological substances, initial encounter; Z88.6 Allergy status to analgesic agent; Z88.2 Allergy status to sulfonamides; E78.00 Pure hypercholesterolemia, unspecified; Z79.899 Other long term (current) drug therapy; Y92.9 Unspecified place or not applicable
CPT/HCPCS: J1100; Q0163

== ENCOUNTER → 2016-11-26 | Outpatient (CLI) | payer MEDICARE, OTHER | END | disposition home or self-care (01) | LOC: GMAJ 15:38 | PROVIDERS: ATTEND Family Medicine | DX: L03.011 Cellulitis of right finger (principal) ==

== ENCOUNTER → 2016-12-18 | Outpatient (CLI) | payer MEDICARE, OTHER | LOC: GMAJ 14:32 | PROVIDERS: ATTEND Family Medicine | DX: R07.9 Chest pain, unspecified (principal) ==

== ENCOUNTER 2016-12-24 19:38 | Emergency (ER) | payer MEDICARE, OTHER ==
[2016-12-24] MEDS ORDERED: methylPREDNISolone SODIUM SUC 125 MG/2 ML VIAL IM ONE (19:54)
[2016-12-24 19:55] VITALS: BP 132/84; TEMP 98.2; O2SAT 97
--- NOTE | 2016-12-24 19:57 | ED.PDOC ---
History of Present Illness - General Chief Complaint: Eye Problems Stated Complaint: itchy watery eye Time Seen by Provider: 12/24/16 19:40 Source: patient, RN notes reviewed, Vital Signs reviewed, old records Exam Limitations: no limitations - History of Present Illness Initial Comments: Patient has an itchy, red rash around L eye. No problem with actual eye. He has been treating with OTC hydrocortizone cream w/o improvement. Symptoms started 2 days ago after finishing a course of antibiotic eye drops for pink eye. No visual changes. Similar symptoms ~8 months ago that resolved with steroids. Timing/Duration: gradual Severity: severe EENT Location: eye (L) - lid Prearrival Treatment: over the counter meds Improving Factors: nothing Worsening Factors: nothing Associated Symptoms: denies symptoms Allergies/Adverse Reactions: Allergies Acetaminophen [From Percocet] Allergy (Verified 12/24/16 19:46) Oxycodone [From Percocet] Allergy (Verified 12/24/16 19:46) Sulfa Antibiotics Adverse Reaction (Verified 12/24/16 19:46) Home Medications: Ambulatory Orders Bupropion HCl [Wellbutrin Xl] 150 mg PO DAILY 02/18/16 Simvastatin [Zocor] 20 mg PO DAILY 02/18/16 Amphetamine-Dextroamphetamine [Adderall] 20 mg PO DAILY 10/16/16 Venlafaxine Xr [Effexor XR] 75 mg PO DAILY 10/16/16 Naproxen [Naprosyn] 500 mg PO BID #30 tab 11/09/16 tiZANidine [Zanaflex] 4 mg PO TID PRN #30 tab 11/09/16 Amoxicillin [Amoxil] 1,000 mg PO BID #30 cap 11/23/16 diphenhydrAMINE HCL [Benadryl] 25 mg PO Q6HRS PRN #30 cap 11/23/16 predniSONE 10 mg PO DAILY #7 tab 11/23/16 Desonide 0.05 gm TOP TID #30 gm 12/24/16 predniSONE 20 mg PO DAILY #5 tab 12/24/16 Review of Systems - Review of Systems Constitutional: States: no symptoms reported EENTM: States: see HPI Respiratory: States: no symptoms reported Cardiology: States: no symptoms reported Musculoskeletal: States: no symptoms reported Skin: States: see HPI, rash - around L eye All other Systems: No Change from Baseline Past Medical History (General) - Patient Medical History Hx Seizures: No Hx Stroke: No Hx Dementia: No Hx Asthma: No Hx of COPD: No Hx Cardiac Disorders: Yes - high cholesterol Hx Congestive Heart Failure: No Hx Pacemaker: No Hx Hypertension: No Hx Thyroid Disease: No Hx Diabetes: No Hx Gastroesophageal Reflux: No Hx Renal Disease: No Hx Cancer: No Hx of HIV: No Hx Hepatitis C: No Hx MRSA: No Surgical History: other - Vaccination History Hx Tetanus, Diphtheria Vaccination: Yes Hx Influenza Vaccination: No Hx Pneumococcal Vaccination: No - Social History Hx Tobacco Use: Yes Hx Chewing Tobacco Use: No Hx Alcohol Use: Yes - social Hx Substance Use: No Hx Substance Use Treatment: No Hx Depression: No Hx Physical Abuse: No Hx Emotional Abuse: No Hx Suspected Abuse: No - Female History Patient : No Family Medical History - Family History Father Hx Family Hypertension: Yes Physical Exam - Physical Exam General Appearance: Agitated, Alert, No apparent distress, Well Developed, Well Groomed, Well Hydrated, Well Nourished Eye Exam: right normal, left other - atopic dermatitis around eye involving whole eyelid Nasal Exam: normal inspection Neck: non-tender, full range of motion, supple, normal inspection Cardiovascular/Respiratory: regular rate, rhythm, no M/R/G, normal breath sounds , no respiratory distress Neurologic: alert, normal mood/affect, oriented x 3 Skin Exam: rash - allergic rash around L eye Progress - Progress Progress: 12/24/16 20:00 Suspect he is having an allergic reaction to eye drops he was given for pink eye. Will treat with topical and oral steroids. Departure - Departure Clinical Impression: Atopic dermatitis of eyelid Qualifiers: Laterality: left Qualified Code(s): H01.136 - Eczematous dermatitis of left eye , unspecified eyelid Time of Disposition: 19:59 Disposition: Discharge to Home or Self Care Condition: Good Departure Forms: ED Discharge - Pt. Copy, Patient Portal Self Enrollment Instructions: DI for Atopic Dermatitis - Adult Diet: resume usual diet Activity: increase activity as tolerated Referrals: Jose Ceballos MD [Primary Care Provider] - 1 Week Prescriptions: Desonide 0.05 gm TOP TID #30 gm predniSONE 20 mg PO DAILY #5 tab Home Medications: Ambulatory Orders Bupropion HCl [Wellbutrin Xl] 150 mg PO DAILY 02/18/16 Simvastatin [Zocor] 20 mg PO DAILY 02/18/16 Amphetamine-Dextroamphetamine [Adderall] 20 mg PO DAILY 10/16/16 Venlafaxine Xr [Effexor XR] 75 mg PO DAILY 10/16/16 Naproxen [Naprosyn] 500 mg PO BID #30 tab 11/09/16 tiZANidine [Zanaflex] 4 mg PO TID PRN #30 tab 11/09/16 Amoxicillin [Amoxil] 1,000 mg PO BID #30 cap 11/23/16 diphenhydrAMINE HCL [Benadryl] 25 mg PO Q6HRS PRN #30 cap 11/23/16 predniSONE 10 mg PO DAILY #7 tab 11/23/16 Desonide 0.05 gm TOP TID #30 gm 12/24/16 predniSONE 20 mg PO DAILY #5 tab 12/24/16
== END 2016-12-24 20:09 | disposition home or self-care (01) ==
LOC: ER 19:38
DX: H01.136 Eczematous dermatitis of left eye, unspecified eyelid (principal); Z87.891 Personal history of nicotine dependence; E78.00 Pure hypercholesterolemia, unspecified; Z79.899 Other long term (current) drug therapy; Z88.8 Allergy status to other drugs, medicaments and biological substances; Z88.2 Allergy status to sulfonamides

== ENCOUNTER 2017-01-04 21:08 | Emergency (ER) | payer MEDICARE, OTHER ==
[2017-01-04 21:26] VITALS: TEMP 98.8
--- NOTE | 2017-01-04 21:32 | ED.PDOC ---
History of Present Illness - General Chief Complaint: Allergic Reaction Stated Complaint: itching, burning, eyes/forehead Time Seen by Provider: 01/04/17 21:31 Source: patient, RN notes reviewed, Vital Signs reviewed Exam Limitations: no limitations - History of Present Illness Initial Comments: Surinder Parikh 51 y/o male stated that he had been taking advil with benadryl for the last several months for sleep since [facility] and for the last several days his eyes and forehead stated itching.Stating he is allergic to several medications. Timing/Duration: gradual EENT Location: eye (R), eye (L) Prearrival Treatment: no prearrival treatment Improving Factors: nothing Associated Symptoms: denies symptoms Allergies/Adverse Reactions: Allergies Acetaminophen [From Percocet] Allergy (Verified 01/04/17 21:26) Oxycodone [From Percocet] Allergy (Verified 01/04/17 21:26) Sulfa Antibiotics Adverse Reaction (Verified 01/04/17 21:26) Home Medications: Ambulatory Orders Bupropion HCl [Wellbutrin Xl] 150 mg PO DAILY 02/18/16 Simvastatin [Zocor] 20 mg PO DAILY 02/18/16 Amphetamine-Dextroamphetamine [Adderall] 20 mg PO DAILY 10/16/16 Venlafaxine Xr [Effexor XR] 75 mg PO DAILY 10/16/16 Naproxen [Naprosyn] 500 mg PO BID #30 tab 11/09/16 tiZANidine [Zanaflex] 4 mg PO TID PRN #30 tab 11/09/16 Amoxicillin [Amoxil] 1,000 mg PO BID #30 cap 11/23/16 diphenhydrAMINE HCL [Benadryl] 25 mg PO Q6HRS PRN #30 cap 11/23/16 predniSONE 10 mg PO DAILY #7 tab 11/23/16 Desonide 0.05 gm TOP TID #30 gm 12/24/16 predniSONE 20 mg PO DAILY #5 tab 12/24/16 predniSONE 10 mg PO AC #7 tab 01/04/17 Review of Systems - Review of Systems Constitutional: States: no symptoms reported EENTM: States: see HPI Respiratory: States: no symptoms reported Cardiology: States: no symptoms reported Gastrointestinal/Abdominal: States: no symptoms reported Genitourinary: States: no symptoms reported Musculoskeletal: States: no symptoms reported Skin: States: see HPI Neurological: States: no symptoms reported Endocrine: States: no symptoms reported Hematologic/Lymphatic: States: no symptoms reported Past Medical History (General) - Patient Medical History Hx Seizures: No Hx Stroke: No Hx Dementia: No Hx Asthma: No Hx of COPD: No Hx Cardiac Disorders: Yes - high cholesterol Hx Congestive Heart Failure: No Hx Pacemaker: No Hx Hypertension: No Hx Thyroid Disease: No Hx Diabetes: No Hx Gastroesophageal Reflux: No Hx Renal Disease: No Hx Cancer: No Hx of HIV: No Hx Hepatitis C: No Hx MRSA: No Hx Other PMH: Yes - insomnia chronic Surgical History: appendectomy, tonsillectomy, other - neck,knee,ankle - Vaccination History Hx Tetanus, Diphtheria Vaccination: Yes Hx Influenza Vaccination: No Hx Pneumococcal Vaccination: No Immunizations Up to Date: Yes - Social History Hx Tobacco Use: Yes Hx Chewing Tobacco Use: No Hx Alcohol Use: Yes - social Hx Substance Use: No Hx Substance Use Treatment: No Hx Depression: No Feels Threatened In Home Enviroment: No Feels Threatened In a Relationship: No Hx Physical Abuse: No Hx Emotional Abuse: No Hx Suspected Abuse: No - Female History Patient : No Family Medical History - Family History Father Hx Family Hypertension: Yes Physical Exam - Physical Exam General Appearance: Alert, Anxious, No apparent distress Eye Exam: bilateral normal Ear Exam: bilateral ear: auricle normal, canal normal, TM normal Nasal Exam: normal inspection, discharge Throat Exam: normal mouth inspection, pharynx normal Neck: non-tender, full range of motion, supple Cardiovascular/Respiratory: regular rate, rhythm, no M/R/G, normal peripheral pulses, no JVD, normal breath sounds Abdominal Exam: non-tender, no organomegaly Neurologic: alert, oriented x 3 Skin Exam: normal color, warm/dry Departure - Departure Clinical Impression: Drug allergy Time of Disposition: 21:48 Disposition: Discharge to Home or Self Care Departure Forms: ED Discharge - Pt. Copy, Patient Portal Self Enrollment Referrals: Jose Ceballos MD [Primary Care Provider] - 1-2 Weeks Prescriptions: predniSONE 10 mg PO AC #7 tab Home Medications: Ambulatory Orders Bupropion HCl [Wellbutrin Xl] 150 mg PO DAILY 02/18/16 Simvastatin [Zocor] 20 mg PO DAILY 02/18/16 Amphetamine-Dextroamphetamine [Adderall] 20 mg PO DAILY 10/16/16 Venlafaxine Xr [Effexor XR] 75 mg PO DAILY 10/16/16 Naproxen [Naprosyn] 500 mg PO BID #30 tab 11/09/16 tiZANidine [Zanaflex] 4 mg PO TID PRN #30 tab 11/09/16 Amoxicillin [Amoxil] 1,000 mg PO BID #30 cap 11/23/16 diphenhydrAMINE HCL [Benadryl] 25 mg PO Q6HRS PRN #30 cap 11/23/16 predniSONE 10 mg PO DAILY #7 tab 11/23/16 Desonide 0.05 gm TOP TID #30 gm 12/24/16 predniSONE 20 mg PO DAILY #5 tab 12/24/16 predniSONE 10 mg PO AC #7 tab 01/04/17 Additional Instructions: Stop taking advil/benadryl follow up with primary 01/07/2017
[2017-01-04] MEDS ORDERED: DEXAMETHASONE INJ 4 MG/ML VIAL IM ONE (21:44)
[2017-01-04] MEDS ORDERED: ZOLPIDEM TARTRATE 10 MG TAB PO PRN (21:45)
[2017-01-04] MEDS ORDERED: predniSONE 10 MG TAB PO ONE (21:45)
[2017-01-04 22:10] VITALS: BP 134/89; O2SAT 94
== END 2017-01-04 22:10 | disposition home or self-care (01) ==
LOC: ER 21:08
DX: L29.9 Pruritus, unspecified (principal); T50.905A Adverse effect of unspecified drugs, medicaments and biological substances, initial encounter; F51.04 Psychophysiologic insomnia; E78.00 Pure hypercholesterolemia, unspecified; Z88.6 Allergy status to analgesic agent; Z88.2 Allergy status to sulfonamides; Z79.899 Other long term (current) drug therapy; Z87.891 Personal history of nicotine dependence
CPT/HCPCS: J1100; J7512

== ENCOUNTER 2017-02-01 20:40 | Emergency (ER) | payer MEDICARE, OTHER ==
[2017-02-01 21:10] VITALS: BP 114/90; TEMP 98.9; O2SAT 97
[2017-02-01] MEDS ORDERED: methylPREDNISolone SODIUM SUC 125 MG/2 ML VIAL IM ONE (21:12)
--- NOTE | 2017-02-01 21:12 | ED.PDOC ---
History of Present Illness - General Chief Complaint: Skin/Abrasion/Tear Stated Complaint: rash to outter right thigh, eyes, forehead Time Seen by Provider: 02/01/17 20:49 Source: patient, RN notes reviewed, Vital Signs reviewed Exam Limitations: no limitations - History of Present Illness Initial Comments: Patient comes in again with c/o of painful, itchy rash around eyes and on forehead. He also has a patch on his right lateral thigh this time. Denies other symptoms. Timing/Duration: week Severity: moderate Location: face Improving Factors: nothing Worsening Factors: nothing Associated Symptoms: change in skin texture, itching, rash Allergies/Adverse Reactions: Allergies Acetaminophen [From Percocet] Allergy (Verified 02/01/17 21:09) Oxycodone [From Percocet] Allergy (Verified 02/01/17 21:09) Sulfa Antibiotics Adverse Reaction (Verified 02/01/17 21:09) Home Medications: Ambulatory Orders Bupropion HCl [Wellbutrin Xl] 150 mg PO DAILY 02/18/16 Simvastatin [Zocor] 20 mg PO DAILY 02/18/16 Amphetamine-Dextroamphetamine [Adderall] 20 mg PO DAILY 10/16/16 Venlafaxine Xr [Effexor XR] 75 mg PO DAILY 10/16/16 Naproxen [Naprosyn] 500 mg PO BID #30 tab 11/09/16 tiZANidine [Zanaflex] 4 mg PO TID PRN #30 tab 11/09/16 Amoxicillin [Amoxil] 1,000 mg PO BID #30 cap 11/23/16 diphenhydrAMINE HCL [Benadryl] 25 mg PO Q6HRS PRN #30 cap 11/23/16 predniSONE 10 mg PO DAILY #7 tab 11/23/16 Desonide 0.05 gm TOP TID #30 gm 12/24/16 predniSONE 20 mg PO DAILY #5 tab 12/24/16 predniSONE 10 mg PO AC #7 tab 01/04/17 Desonide [Desowen] 0.5 ml TOP TID PRN #60 gm 02/01/17 Review of Systems - Review of Systems Constitutional: States: no symptoms reported EENTM: States: no symptoms reported Respiratory: States: no symptoms reported Cardiology: States: no symptoms reported Musculoskeletal: States: no symptoms reported Skin: States: rash - Around eyes, forehead and R lateral thigh Neurological: States: no symptoms reported All other Systems: No Change from Baseline Past Medical History (General) - Patient Medical History Hx Seizures: No Hx Stroke: No Hx Dementia: No Hx Asthma: No Hx of COPD: No Hx Cardiac Disorders: Yes - high cholesterol Hx Congestive Heart Failure: No Hx Pacemaker: No Hx Hypertension: No Hx Thyroid Disease: No Hx Diabetes: No Hx Gastroesophageal Reflux: No Hx Renal Disease: No Hx Cancer: No Hx of HIV: No Hx Hepatitis C: No Hx MRSA: No - Vaccination History Hx Tetanus, Diphtheria Vaccination: Yes Hx Influenza Vaccination: No Hx Pneumococcal Vaccination: No - Social History Hx Tobacco Use: Yes Hx Chewing Tobacco Use: No Hx Alcohol Use: Yes - social Hx Substance Use: No Hx Substance Use Treatment: No Hx Depression: No Hx Physical Abuse: No Hx Emotional Abuse: No Hx Suspected Abuse: No - Female History Patient : No Family Medical History - Family History Father Hx Family Hypertension: Yes Physical Exam - Physical Exam General Appearance: Alert, Comfortable, No apparent distress, Well Developed, Well Groomed, Well Hydrated, Well Nourished Eyes, Ears, Nose, Throat Exam: PERRL/EOMI, normal ENT inspection Neck: supple, normal inspection Respiratory: no respiratory distress Extremity: normal range of motion, normal inspection, no calf tenderness Neurologic: alert, normal mood/affect, oriented x 3 Skin Exam: warm/dry, normal color Skin Problem Location: face - around eyes and on foreheat, lower extremities - R laterat thigh Skin Character: erythema, rash, thickening Lymphatic: no adenopathy Comments: Vital Signs - 8 hr 02/01/17 20:50 Temperature 98.9 F Pulse Rate [ 96 H monitor] Respiratory 18 Rate Blood Pressure 114/90 [Right Arm] O2 Sat by Pulse 97 Oximetry Progress - Progress Progress: 02/01/17 21:15 Will give Solu-Medrol IM Discussed that atopic dermatitis is a chronic issue and he needs to do better maintenance including daily moisturizing. Departure - Departure Clinical Impression: Atopic dermatitis of eyelid Qualifiers: Laterality: unspecified laterality Qualified Code(s): H01.139 - Eczematous dermatitis of unspecified eye, unspecified eyelid Time of Disposition: 21:17 Disposition: Discharge to Home or Self Care Condition: Good Departure Forms: ED Discharge - Pt. Copy, Patient Portal Self Enrollment Instructions: DI for Atopic Dermatitis - Adult Diet: resume usual diet Activity: increase activity as tolerated Referrals: Jose Ceballos MD [Primary Care Provider] - 1-2 Weeks Prescriptions: Desonide [Desowen] 0.5 ml TOP TID PRN #60 gm PRN Reason: Rash Home Medications: Ambulatory Orders Bupropion HCl [Wellbutrin Xl] 150 mg PO DAILY 02/18/16 Simvastatin [Zocor] 20 mg PO DAILY 02/18/16 Amphetamine-Dextroamphetamine [Adderall] 20 mg PO DAILY 10/16/16 Venlafaxine Xr [Effexor XR] 75 mg PO DAILY 10/16/16 Naproxen [Naprosyn] 500 mg PO BID #30 tab 11/09/16 tiZANidine [Zanaflex] 4 mg PO TID PRN #30 tab 11/09/16 Amoxicillin [Amoxil] 1,000 mg PO BID #30 cap 11/23/16 diphenhydrAMINE HCL [Benadryl] 25 mg PO Q6HRS PRN #30 cap 11/23/16 predniSONE 10 mg PO DAILY #7 tab 11/23/16 Desonide 0.05 gm TOP TID #30 gm 12/24/16 predniSONE 20 mg PO DAILY #5 tab 12/24/16 predniSONE 10 mg PO AC #7 tab 01/04/17 Desonide [Desowen] 0.5 ml TOP TID PRN #60 gm 02/01/17
== END 2017-02-01 21:23 | disposition home or self-care (01) ==
LOC: ER 20:40
DX: L20.89 Other atopic dermatitis (principal); Z87.891 Personal history of nicotine dependence; E78.00 Pure hypercholesterolemia, unspecified; Z79.899 Other long term (current) drug therapy; Z88.2 Allergy status to sulfonamides; Z88.6 Allergy status to analgesic agent

== ENCOUNTER 2017-02-11 16:25 | Emergency (ER) | payer MEDICARE, OTHER | END 2017-02-11 16:56 | disposition left against medical advice (07) | LOC: ER 16:25 | DX: Z53.21 Procedure and treatment not carried out due to patient leaving prior to being seen by health care provider (principal) ==

== ENCOUNTER 2017-02-13 21:29 | Emergency (ER) | payer MEDICARE, OTHER ==
[2017-02-13] MEDS ORDERED: ASPIRIN TABLET 325 MG TAB PO ONE (21:38)
[2017-02-13] MEDS ORDERED: NITROGLYCERIN 0.4 MG 25 EA TAB SL ONE ×3 (21:39→21:41)
[2017-02-13] MEDS ORDERED: NITROGLYCERIN/D5W IV 250 ML IVS ONE (21:44)
[2017-02-13] MEDS ORDERED: LABETALOL INJ 5 MG/ML VIAL ONE (21:45)
[2017-02-13] MEDS ORDERED: LABETALOL INJ 5 MG/ML VIAL IV ONE (21:51)
[2017-02-13] MEDS ORDERED: NITROGLYCERIN/D5W IV 50,000 MCG in PREMIX BOTTLE 1 BOTTLE IVS SCH (22:00)
--- NOTE | 2017-02-13 22:10 | ED.PDOC ---
History of Present Illness - General Chief Complaint: Chest Pain/MN Stated Complaint: CP, SOB, left arm and back pain Time Seen by Provider: 02/13/17 22:08 Source: patient, RN notes reviewed, EMS notes reviewed Exam Limitations: no limitations - History of Present Illness Initial Comments: Surinder Parikh 51 y/o male stated that he had sudden onset of sharp chest pains while watchin tv tonight about 40 minutes prior to admission here at emergency room.He had recent Thallium stress testing done 02/06/2017-stress induced ischemia apical wall of left ventricle;normal left ventricular systolic function. Timing/Duration: 1 hour Severity/Quality: severe, sharp, stabbing Location: central Chest Pain Radiation: shoulders, back Activities at Onset: rest Prior Chest Pain/Cardiac Workup: stress test, thallium scan Worsening Factors: nothing Nitro Today/Relief: provided by ED Aspirin Treatment Today: provided by ED Associated Symptoms: diaphoresis, shortness of breath Allergies/Adverse Reactions: Allergies Sulfa Antibiotics Adverse Reaction (Verified 02/13/17 22:05) Home Medications: Ambulatory Orders Bupropion HCl [Wellbutrin Xl] 150 mg PO DAILY 02/18/16 Simvastatin [Zocor] 20 mg PO DAILY 02/18/16 Amphetamine-Dextroamphetamine [Adderall] 20 mg PO DAILY 10/16/16 Venlafaxine Xr [Effexor XR] 75 mg PO DAILY 10/16/16 Naproxen [Naprosyn] 500 mg PO BID #30 tab 11/09/16 tiZANidine [Zanaflex] 4 mg PO TID PRN #30 tab 11/09/16 Amoxicillin [Amoxil] 1,000 mg PO BID #30 cap 11/23/16 diphenhydrAMINE HCL [Benadryl] 25 mg PO Q6HRS PRN #30 cap 11/23/16 predniSONE 10 mg PO DAILY #7 tab 11/23/16 Desonide 0.05 gm TOP TID #30 gm 12/24/16 predniSONE 20 mg PO DAILY #5 tab 12/24/16 predniSONE 10 mg PO AC #7 tab 01/04/17 Desonide [Desowen] 0.5 ml TOP TID PRN #60 gm 02/01/17 Review of Systems - Review of Systems Constitutional: States: no symptoms reported EENTM: States: no symptoms reported Respiratory: States: no symptoms reported Cardiology: States: see HPI Gastrointestinal/Abdominal: States: no symptoms reported Genitourinary: States: no symptoms reported Musculoskeletal: States: no symptoms reported Skin: States: no symptoms reported Neurological: States: no symptoms reported Endocrine: States: no symptoms reported Past Medical History (General) - Patient Medical History Hx Seizures: No Hx Stroke: No Hx Dementia: No Hx Asthma: No Hx of COPD: No Hx Cardiac Disorders: Yes - high cholesterol Hx Congestive Heart Failure: No Hx Pacemaker: No Hx Hypertension: No Hx Thyroid Disease: No Hx Diabetes: No Hx Gastroesophageal Reflux: No Hx Renal Disease: No Hx Cancer: No Hx of HIV: No Hx Hepatitis C: No Hx MRSA: No Surgical History: appendectomy - Vaccination History Hx Tetanus, Diphtheria Vaccination: Yes Hx Influenza Vaccination: No Hx Pneumococcal Vaccination: No - Social History Hx Tobacco Use: Yes Hx Chewing Tobacco Use: No Hx Alcohol Use: Yes - social Hx Substance Use: No Hx Substance Use Treatment: No Hx Depression: No Hx Physical Abuse: No Hx Emotional Abuse: No Hx Suspected Abuse: No - Female History Patient : No Family Medical History - Family History Father Hx Family Hypertension: Yes Physical Exam - Physical Exam General Appearance: Alert, Anxious, No apparent distress Eyes, Ears, Nose, Throat Exam: PERRL/EOMI, normal ENT inspection Neck: non-tender, full range of motion Respiratory: chest non-tender, lungs clear, normal breath sounds Cardiovascular/Chest: regular rate, rhythm, no murmur, tachycardia - heart rate 127/min Peripheral Pulses: radial,right: 1+, radial,left: 1+ Gastrointestinal/Abdominal: normal bowel sounds, non tender, soft Extremity: normal range of motion, non-tender, no pedal edema, no calf tenderness Neurologic: no motor/sensory deficits, alert, normal mood/affect, oriented x 3 Skin Exam: normal color, warm/dry Lymphatic: no adenopathy Progress - Progress Progress: 02/13/17 22:37 Vital Signs - 8 hr 02/13/17 02/13/17 02/13/17 21:30 21:34 21:35 Temperature 98.5 F Pulse Rate [ 121 H 123 H 113 H monitor] Respiratory 24 24 22 Rate Blood Pressure 156/102 131/98 [Right Arm] O2 Sat by Pulse 99 99 Oximetry 02/13/17 02/13/17 02/13/17 21:50 22:05 22:10 Temperature Pulse Rate [ 123 H 97 H 97 H monitor] Respiratory 21 20 20 Rate Blood Pressure 122/51 116/84 130/74 [Right Arm] O2 Sat by Pulse 100 99 100 Oximetry 02/13/17 22:30 Temperature Pulse Rate [ 86 monitor] Respiratory 18 Rate Blood Pressure 113/78 [Right Arm] O2 Sat by Pulse 97 Oximetry Laboratory Tests 02/13/17 02/13/17 02/13/17 21:30 21:30 21:30 WBC 12.0 H RBC 4.43 L Hgb 13.6 L Hct 40.3 L MCV 91.0 MCH 30.6 MCHC 33.7 RDW 14.1 Plt Count 313 MPV 8.0 Absolute Neuts (auto) 6.30 Absolute Lymphs (auto) 4.90 H Absolute Monos (auto) 0.60 Absolute Eos (auto) 0.10 Absolute Basos (auto) 0.10 Neutrophils % 52.6 Lymphocytes % 41.0 Monocytes % 5.1 Eosinophils % 0.5 L Basophils % 0.8 PT 10.7 INR 0.950 PTT (SP) 27.3 D-Dimer, Quantitative < 230 Sodium 141 Potassium 4.0 Chloride 101 Carbon Dioxide 27 Anion Gap 17.0 BUN 17 Creatinine 1.13 BUN/Creatinine Ratio 15.0 Random Glucose 91 Serum Osmolality 282.4 Calcium 10.3 H Magnesium 2.0 Creatine Kinase 126 CK-MB (CK-2) 1.8 CK-MB (CK-2) % Not Reportable Troponin I < 0.02 B-Natriuretic Peptide < 5.0 Urine Color Urine Appearance Urine pH Ur Specific [place] Urine Protein Urine Glucose (UA) Urine Ketones Urine Blood Urine Nitrite Urine Bilirubin Urine Urobilinogen Ur Leukocyte Esterase Urine RBC Urine WBC Ur Epithelial Cells Urine Bacteria Urine Opiates Screen Urine Barbiturates Ur Phencyclidine Scrn U Amphetamin/Meth Scrn U Benzodiazepines Scrn U Cocaine Metab Screen U Cannabinoids Screen 02/13/17 02/13/17 22:18 22:18 WBC RBC Hgb Hct MCV MCH MCHC RDW Plt Count MPV Absolute Neuts (auto) Absolute Lymphs (auto) Absolute Monos (auto) Absolute Eos (auto) Absolute Basos (auto) Neutrophils % Lymphocytes % Monocytes % Eosinophils % Basophils % PT INR PTT (SP) D-Dimer, Quantitative Sodium Potassium Chloride Carbon Dioxide Anion Gap BUN Creatinine BUN/Creatinine Ratio Random Glucose Serum Osmolality Calcium Magnesium Creatine Kinase CK-MB (CK-2) CK-MB (CK-2) % Troponin I B-Natriuretic Peptide Urine Color Yellow Urine Appearance Clear Urine pH 6.5 Ur Specific [place] 1.020 Urine Protein Negative Urine Glucose (UA) Negative Urine Ketones Negative Urine Blood Trace-intact H Urine Nitrite Negative Urine Bilirubin Negative Urine Urobilinogen 0.2 Ur Leukocyte Esterase Negative Urine RBC 0-1 Urine WBC 0-1 Ur Epithelial Cells 0-1 Urine Bacteria 0 Urine Opiates Screen Negative Urine Barbiturates Negative Ur Phencyclidine Scrn Negative U Amphetamin/Meth Scrn Negative U Benzodiazepines Scrn Negative U Cocaine Metab Screen Negative U Cannabinoids Screen Negative - Results/Orders Results/Orders: Laboratory Tests 02/13/17 02/13/17 02/13/17 21:30 21:30 21:30 WBC 12.0 H RBC 4.43 L Hgb 13.6 L Hct 40.3 L MCV 91.0 MCH 30.6 MCHC 33.7 RDW 14.1 Plt Count 313 MPV 8.0 Absolute Neuts (auto) 6.30 Absolute Lymphs (auto) 4.90 H Absolute Monos (auto) 0.60 Absolute Eos (auto) 0.10 Absolute Basos (auto) 0.10 Neutrophils % 52.6 Lymphocytes % 41.0 Monocytes % 5.1 Eosinophils % 0.5 L Basophils % 0.8 PT 10.7 INR 0.950 PTT (SP) 27.3 D-Dimer, Quantitative < 230 Sodium 141 Potassium 4.0 Chloride 101 Carbon Dioxide 27 Anion Gap 17.0 BUN 17 Creatinine 1.13 BUN/Creatinine Ratio 15.0 Random Glucose 91 Serum Osmolality 282.4 Calcium 10.3 H Magnesium 2.0 Creatine Kinase 126 CK-MB (CK-2) 1.8 CK-MB (CK-2) % Not Reportable Troponin I < 0.02 B-Natriuretic Peptide < 5.0 TSH Urine Color Urine Appearance Urine pH Ur Specific [place] Urine Protein Urine Glucose (UA) Urine Ketones Urine Blood Urine Nitrite Urine Bilirubin Urine Urobilinogen Ur Leukocyte Esterase Urine RBC Urine WBC Ur Epithelial Cells Urine Bacteria Urine Opiates Screen Urine Barbiturates Ur Phencyclidine Scrn U Amphetamin/Meth Scrn U Benzodiazepines Scrn U Cocaine Metab Screen U Cannabinoids Screen 02/13/17 02/13/17 02/13/17 21:30 22:18 22:18 WBC RBC Hgb Hct MCV MCH MCHC RDW Plt Count MPV Absolute Neuts (auto) Absolute Lymphs (auto) Absolute Monos (auto) Absolute Eos (auto) Absolute Basos (auto) Neutrophils % Lymphocytes % Monocytes % Eosinophils % Basophils % PT INR PTT (SP) D-Dimer, Quantitative Sodium Potassium Chloride Carbon Dioxide Anion Gap BUN Creatinine BUN/Creatinine Ratio Random Glucose Serum Osmolality Calcium Magnesium Creatine Kinase CK-MB (CK-2) CK-MB (CK-2) % Troponin I B-Natriuretic Peptide TSH 5.32 Urine Color Yellow Urine Appearance Clear Urine pH 6.5 Ur Specific [place] 1.020 Urine Protein Negative Urine Glucose (UA) Negative Urine Ketones Negative Urine Blood Trace-intact H Urine Nitrite Negative Urine Bilirubin Negative Urine Urobilinogen 0.2 Ur Leukocyte Esterase Negative Urine RBC 0-1 Urine WBC 0-1 Ur Epithelial Cells 0-1 Urine Bacteria 0 Urine Opiates Screen Negative Urine Barbiturates Negative Ur Phencyclidine Scrn Negative U Amphetamin/Meth Scrn Negative U Benzodiazepines Scrn Negative U Cocaine Metab Screen Negative U Cannabinoids Screen Negative 02/13/17 22:49 WBC RBC Hgb Hct MCV MCH MCHC RDW Plt Count MPV Absolute Neuts (auto) Absolute Lymphs (auto) Absolute Monos (auto) Absolute Eos (auto) Absolute Basos (auto) Neutrophils % Lymphocytes % Monocytes % Eosinophils % Basophils % PT INR PTT (SP) D-Dimer, Quantitative Sodium Potassium Chloride Carbon Dioxide Anion Gap BUN Creatinine BUN/Creatinine Ratio Random Glucose Serum Osmolality Calcium Magnesium Creatine Kinase CK-MB (CK-2) CK-MB (CK-2) % Troponin I < 0.02 B-Natriuretic Peptide TSH Urine Color Urine Appearance Urine pH Ur Specific [place] Urine Protein Urine Glucose (UA) Urine Ketones Urine Blood Urine Nitrite Urine Bilirubin Urine Urobilinogen Ur Leukocyte Esterase Urine RBC Urine WBC Ur Epithelial Cells Urine Bacteria Urine Opiates Screen Urine Barbiturates Ur Phencyclidine Scrn U Amphetamin/Meth Scrn U Benzodiazepines Scrn U Cocaine Metab Screen U Cannabinoids Screen - EKG/XRAY/CT EKG: Sinus, Tachy Comments: heart Rate 127 w/fusion complexes CT Ordered: Yes - chest- no acute process noted/radiologist - Additional EKG/XRAY/Consults EKG #2: Sinus, no ST T wave changes Comments: Heart rate-94 Departure - Departure Clinical Impression: Sinus tachycardia, Abnormal finding on thallium stress test Chest pain Qualifiers: Chest pain type: unspecified Qualified Code(s): R07.9 - Chest pain, unspecified Time of Disposition: 23:32 - D/W Dr. Madrigal Hospitalist Disposition: Transfer to Hospital Condition: Fair Departure Forms: ED Discharge - Pt. Copy, Patient Portal Self Enrollment Referrals: Jose Ceballos MD [Primary Care Provider] - 1-2 Weeks Home Medications: Ambulatory Orders Bupropion HCl [Wellbutrin Xl] 150 mg PO DAILY 02/18/16 Simvastatin [Zocor] 20 mg PO DAILY 02/18/16 Amphetamine-Dextroamphetamine [Adderall] 20 mg PO DAILY 10/16/16 Venlafaxine Xr [Effexor XR] 75 mg PO DAILY 10/16/16 Naproxen [Naprosyn] 500 mg PO BID #30 tab 11/09/16 tiZANidine [Zanaflex] 4 mg PO TID PRN #30 tab 11/09/16 Amoxicillin [Amoxil] 1,000 mg PO BID #30 cap 11/23/16 diphenhydrAMINE HCL [Benadryl] 25 mg PO Q6HRS PRN #30 cap 11/23/16 predniSONE 10 mg PO DAILY #7 tab 11/23/16 Desonide 0.05 gm TOP TID #30 gm 12/24/16 predniSONE 20 mg PO DAILY #5 tab 12/24/16 predniSONE 10 mg PO AC #7 tab 01/04/17 Desonide [Desowen] 0.5 ml TOP TID PRN #60 gm 02/01/17 Transfer to Outside Facility - Transfer Information Accepting Facility: [facility] 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
[2017-02-13 22:16] VITALS: TEMP 98.5
--- NOTE | 2017-02-13 22:32 | CT ---
PROCEDURE: Chest w/o Contrast CLINICAL HISTORY: 51 years Male chest pain COMPARISON: None. TECHNIQUE: Contiguous axial images obtained through the chest without IV contrast. Reformatted images obtained. This exam was performed according to our department optimization program which includes automated exposure control, adjustment of the mA and/or kv according to patient size and/or use of iterative reconstruction technique. FINDINGS: Motion artifact limits evaluation. No pulmonary contusion or pneumothorax noted. No alveolar infiltrate. The proximal descending thoracic aorta is mildly dilated measuring 3.4 cm. No significant hilar or axillary or mediastinal adenopathy. Some deformity of the proximal aspect of the sternum which may reflect previous fracture. No surrounding inflammatory changes are noted. Mild degenerative changes in the spine. Dependent atelectasis. 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
[2017-02-13] MEDS ORDERED: CLOPIDOGREL 75 MG TAB PO ONE (22:35)
[2017-02-13] MEDS ORDERED: ACETAMINOPHEN 500 MG TAB PO ONE (22:43)
[2017-02-13] MEDS ORDERED: HYDROcodone 10MG/APAP 325MG 1 EA TAB PO ONE (23:05)
[2017-02-13] MEDS ORDERED: HYDROcodone 10MG/APAP 325MG 1 EA TAB ONE (23:06)
[2017-02-14 00:01] VITALS: O2SAT 98
[2017-02-14] MEDS ORDERED: fentaNYL CITRATE INJ 50 MCG/ML AMP IV ONE (00:04)
[2017-02-14 00:15] VITALS: BP 134/95
== END 2017-02-14 00:30 | disposition short-term general hospital (02) ==
LOC: ER 21:29
DX: R00.0 Tachycardia, unspecified (principal); R07.9 Chest pain, unspecified; R79.89 Other specified abnormal findings of blood chemistry; E78.00 Pure hypercholesterolemia, unspecified; Z87.891 Personal history of nicotine dependence; Z79.899 Other long term (current) drug therapy; Z88.2 Allergy status to sulfonamides
CPT/HCPCS: 36415; 71250; 80048; 80307; 81001; 82550; 82553; 83880; 84443; 84484; 85025; 85379; 85610; 85730; 93005; J3010

== ENCOUNTER 2017-03-18 14:42 | Emergency (ER) | payer MEDICARE, OTHER ==
[2017-03-18] MEDS ORDERED: IPRATROPIUM/ALBUTEROL 3 ML VIAL NEB ONE (14:59)
--- NOTE | 2017-03-18 15:02 | ED.PDOC ---
History of Present Illness - General Chief Complaint: Respiratory Problem Stated Complaint: chest congestion/cough Time Seen by Provider: 03/18/17 14:59 Source: patient, RN notes reviewed, Vital Signs reviewed Exam Limitations: no limitations - History of Present Illness Comments: Patient comes in with 5 days of cough and congestion. Initially had a fever to 101 and body aches. Cough is non-productive. No SOB or chest pain. Mild nasal congestion. No ear ache or sore throat. Timing/Duration: constant - for 5 days Cough Quality/Degree: moderate, dry cough Possible Cause: no prior episodes Improving Factors: nothing Worsening Factors: nothing Associated Symptoms: cough, fever/chills, muscle aches, nasal congestion Respiratory Risk Factors: exposure to illness - has similar symptoms Allergies/Adverse Reactions: Allergies Sulfa Antibiotics Adverse Reaction (Verified 02/13/17 22:05) Home Medications: Ambulatory Orders Bupropion HCl [Wellbutrin Xl] 150 mg PO DAILY 02/18/16 Simvastatin [Zocor] 20 mg PO DAILY 02/18/16 Amphetamine-Dextroamphetamine [Adderall] 20 mg PO DAILY 10/16/16 Venlafaxine Xr [Effexor XR] 75 mg PO DAILY 10/16/16 Naproxen [Naprosyn] 500 mg PO BID #30 tab 11/09/16 tiZANidine [Zanaflex] 4 mg PO TID PRN #30 tab 11/09/16 Amoxicillin [Amoxil] 1,000 mg PO BID #30 cap 11/23/16 diphenhydrAMINE HCL [Benadryl] 25 mg PO Q6HRS PRN #30 cap 11/23/16 predniSONE 10 mg PO DAILY #7 tab 11/23/16 Desonide 0.05 gm TOP TID #30 gm 12/24/16 predniSONE 20 mg PO DAILY #5 tab 12/24/16 predniSONE 10 mg PO AC #7 tab 01/04/17 Desonide [Desowen] 0.5 ml TOP TID PRN #60 gm 02/01/17 Azithromycin [Zithromax Z-Jatinder] 1 ea PO DAILY #1 pack 03/18/17 Review of Systems - Review of Systems Constitutional: States: chills, fever, malaise EENTM: States: nose congestion. Denies: ear pain, throat pain Respiratory: States: cough. Denies: short of breath, stridor, wheezing Cardiology: States: no symptoms reported. Denies: chest pain Gastrointestinal/Abdominal: States: no symptoms reported Musculoskeletal: States: muscle pain - generallized body aches Skin: States: no symptoms reported Neurological: States: no symptoms reported. Denies: headache All other Systems: No Change from Baseline Past Medical History (General) - Patient Medical History Hx Seizures: No Hx Stroke: No Hx Dementia: No Hx Asthma: No Hx of COPD: No Hx Cardiac Disorders: Yes - high cholesterol Hx Congestive Heart Failure: No Hx Pacemaker: No Hx Hypertension: Yes Hx Thyroid Disease: No Hx Diabetes: No Hx Gastroesophageal Reflux: No Hx Renal Disease: No Hx Cancer: No Hx of HIV: No Hx Hepatitis C: No Hx MRSA: No - Vaccination History Hx Tetanus, Diphtheria Vaccination: Yes Hx Influenza Vaccination: No Hx Pneumococcal Vaccination: No - Social History Hx Tobacco Use: Yes Hx Chewing Tobacco Use: No Hx Alcohol Use: Yes - social Hx Substance Use: No Hx Substance Use Treatment: No Hx Depression: No Hx Physical Abuse: No Hx Emotional Abuse: No Hx Suspected Abuse: No - Female History Patient : No - Triage Comment ED Triage Comment: Pt states he has had a cough for a week and not getting better. Fever 2 days ago. Family Medical History - Family History Father Family History: Unknown Living Status: Unknown Hx Family Hypertension: Yes Physical Exam - Physical Exam General Appearance: Alert, Comfortable, No apparent distress, Well Developed, Well Groomed, Well Hydrated, Well Nourished ENT Exam: normal ENT inspection, hearing grossly normal, TMs normal, pharynx normal, nasal congestion Neck: non-tender, full range of motion, supple, lymphadenopathy (R), lymphadenopathy (L) Respiratory: no respiratory distress, no accessory muscle use, wheezing - bilaterally L>R, inspiration Cardiovascular/Chest: regular rate, rhythm, no gallop, no JVD, no murmur Neurologic: alert, normal mood/affect, oriented x 3 Skin Exam: normal color, warm/dry Progress - Results/Orders Results/Orders: Influenza A & B: Negative - EKG/XRAY/CT XRAY: chest - Normal per Radiologist Departure - Departure Clinical Impression: Acute bronchitis Qualifiers: Bronchitis organism: unspecified organism Qualified Code(s): J20.9 - Acute bronchitis, unspecified Time of Disposition: 16:23 Disposition: Discharge to Home or Self Care Condition: Good Departure Forms: ED Discharge - Pt. Copy, Patient Portal Self Enrollment Instructions: DI for Acute Bronchitis Diet: resume usual diet Activity: increase activity as tolerated Referrals: Jose Ceballos MD [Primary Care Provider] - 1-2 Weeks Prescriptions: Azithromycin [Zithromax Z-Jatinder] 1 ea PO DAILY #1 pack Home Medications: Ambulatory Orders Bupropion HCl [Wellbutrin Xl] 150 mg PO DAILY 02/18/16 Simvastatin [Zocor] 20 mg PO DAILY 02/18/16 Amphetamine-Dextroamphetamine [Adderall] 20 mg PO DAILY 10/16/16 Venlafaxine Xr [Effexor XR] 75 mg PO DAILY 10/16/16 Naproxen [Naprosyn] 500 mg PO BID #30 tab 11/09/16 tiZANidine [Zanaflex] 4 mg PO TID PRN #30 tab 11/09/16 Amoxicillin [Amoxil] 1,000 mg PO BID #30 cap 11/23/16 diphenhydrAMINE HCL [Benadryl] 25 mg PO Q6HRS PRN #30 cap 11/23/16 predniSONE 10 mg PO DAILY #7 tab 11/23/16 Desonide 0.05 gm TOP TID #30 gm 12/24/16 predniSONE 20 mg PO DAILY #5 tab 12/24/16 predniSONE 10 mg PO AC #7 tab 01/04/17 Desonide [Desowen] 0.5 ml TOP TID PRN #60 gm 02/01/17 Azithromycin [Zithromax Z-Jatinder] 1 ea PO DAILY #1 pack 03/18/17
[2017-03-18 15:16] VITALS: TEMP 98
--- NOTE | 2017-03-18 15:24 | RAD ---
EXAM DESCRIPTION: Chest,2 Views CLINICAL HISTORY: 51 years Male, cough, congestion, fever, wheezing L>R COMPARISON: 16 October 2016 TECHNIQUE: PA/lateral FINDINGS: There is no cardiac or pulmonary abnormality. The lungs are clear. There is no effusion. An anterior cervical fusion plate is observed. IMPRESSION: 1. Normal two-view chest. Electronically signed by: Manuel Carabjal MD 03/18/2017 3:23 PM CDT
[2017-03-18 16:15] VITALS: BP 119/79
[2017-03-18] MEDS ORDERED: methylPREDNISolone SODIUM SUC 125 MG/2 ML VIAL IM ONE (16:22)
[2017-03-18 18:00] VITALS: O2SAT 92
== END 2017-03-18 16:54 | disposition home or self-care (01) ==
LOC: ER 14:42
DX: J20.9 Acute bronchitis, unspecified (principal); E78.00 Pure hypercholesterolemia, unspecified; Z87.891 Personal history of nicotine dependence; Z88.2 Allergy status to sulfonamides; Z79.899 Other long term (current) drug therapy
CPT/HCPCS: 71020; 87502; 94640; J2930; J7620

== ENCOUNTER 2017-05-14 20:51 | Emergency (ER) | payer MEDICARE, OTHER ==
[2017-05-14 21:06] VITALS: TEMP 97.6
--- NOTE | 2017-05-14 21:31 | ED.PDOC ---
History of Present Illness - General Chief Complaint: Trauma Stated Complaint: Right rib pain Time Seen by Provider: 05/14/17 20:56 Source: patient, RN notes reviewed, Vital Signs reviewed Exam Limitations: no limitations - History of Present Illness Initial Comments: Patient comes in with c/o R rib pain after being bucked off a horse @ 18:00 today. Pain is worse with movement and breathing. Denies any other injury. Timing/Duration: 4-6 hours Severity: moderate Improving Factors: immobilization Worsening Factors: movement Associated Symptoms: chest pain Allergies/Adverse Reactions: Allergies Sulfa Antibiotics Adverse Reaction (Verified 02/13/17 22:05) Home Medications: Ambulatory Orders Bupropion HCl [Wellbutrin Xl] 150 mg PO DAILY 02/18/16 Simvastatin [Zocor] 20 mg PO DAILY 02/18/16 Amphetamine-Dextroamphetamine [Adderall] 20 mg PO DAILY 10/16/16 Venlafaxine Xr [Effexor XR] 75 mg PO DAILY 10/16/16 Naproxen [Naprosyn] 500 mg PO BID #30 tab 11/09/16 tiZANidine [Zanaflex] 4 mg PO TID PRN #30 tab 11/09/16 Amoxicillin [Amoxil] 1,000 mg PO BID #30 cap 11/23/16 diphenhydrAMINE HCL [Benadryl] 25 mg PO Q6HRS PRN #30 cap 11/23/16 predniSONE 10 mg PO DAILY #7 tab 11/23/16 Desonide 0.05 gm TOP TID #30 gm 12/24/16 predniSONE 20 mg PO DAILY #5 tab 12/24/16 predniSONE 10 mg PO AC #7 tab 01/04/17 Desonide [Desowen] 0.5 ml TOP TID PRN #60 gm 02/01/17 Azithromycin [Zithromax Z-Jatinder] 1 ea PO DAILY #1 pack 03/18/17 Review of Systems - Review of Systems Constitutional: States: no symptoms reported Respiratory: States: see HPI. Denies: short of breath Cardiology: States: chest pain - R mid and lower rib pain Gastrointestinal/Abdominal: States: no symptoms reported Musculoskeletal: States: see HPI Skin: States: other - abrasions and bruising R chest wall Neurological: States: no symptoms reported All other Systems: No Change from Baseline Past Medical History (General) - Patient Medical History Hx Seizures: No Hx Stroke: No Hx Dementia: No Hx Asthma: No Hx of COPD: No Hx Cardiac Disorders: Yes - high cholesterol Hx Congestive Heart Failure: No Hx Pacemaker: No Hx Hypertension: No Hx Thyroid Disease: No Hx Diabetes: No Hx Gastroesophageal Reflux: No Hx Renal Disease: No Hx Cancer: No Hx of HIV: No Hx Hepatitis C: No Hx MRSA: No - Vaccination History Hx Tetanus, Diphtheria Vaccination: Yes Hx Influenza Vaccination: No Hx Pneumococcal Vaccination: No Immunizations Up to Date: Yes - Social History Hx Tobacco Use: Yes Hx Chewing Tobacco Use: No Hx Alcohol Use: No Hx Substance Use: No Hx Substance Use Treatment: No Hx Depression: No Hx Physical Abuse: No Hx Emotional Abuse: No Hx Suspected Abuse: No - Female History Patient : No Family Medical History - Family History Father Family History: Unknown Living Status: Unknown Hx Family Hypertension: Yes Physical Exam - Physical Exam General Appearance: Alert, Obvious distress - In obvious pain, Well Developed, Well Hydrated, Well Nourished Ears, Nose, Throat: hearing grossly normal Neck: full range of motion, supple, normal inspection Respiratory: lungs clear, normal breath sounds, no respiratory distress, no accessory muscle use, other - R lateral and anterior mid and lower chest wall tenderness to palpation Cardiovascular/Chest: regular rate, rhythm, no gallop, no murmur Gastrointestinal/Abdominal: normal bowel sounds, guarding, tenderness - RUQ Extremity: normal range of motion, normal inspection Neurologic: alert, normal mood/affect, oriented x 3 Skin Exam: normal color, warm/dry, other - Superficial Abrasions and ecchymosis R chest wall Comments: Vital Signs 05/14/17 21:01 Temperature 97.6 F Pulse Rate [ 112 H Left Radial] Respiratory 20 Rate Blood Pressure 117/81 [Left Arm] O2 Sat by Pulse 94 L Oximetry Progress - EKG/XRAY/CT XRAY: chest - Normal, no rib fraactures or dislocation per Radiologist CT Ordered: Yes - Abd: no acute findings per Rad Departure - Departure Clinical Impression: Contusion of rib Qualifiers: Encounter type: initial encounter Laterality: right Qualified Code(s): S20.211A - Contusion of right front wall of thorax, initial encounter Time of Disposition: 22:51 Disposition: Discharge to Home or Self Care Condition: Good Departure Forms: ED Discharge - Pt. Copy, Patient Portal Self Enrollment Instructions: DI for Rib Contusion Diet: resume usual diet Activity: increase activity as tolerated Referrals: Jose Ceballos MD [Primary Care Provider] - 1-2 Weeks Home Medications: Ambulatory Orders Bupropion HCl [Wellbutrin Xl] 150 mg PO DAILY 02/18/16 Simvastatin [Zocor] 20 mg PO DAILY 02/18/16 Amphetamine-Dextroamphetamine [Adderall] 20 mg PO DAILY 10/16/16 Venlafaxine Xr [Effexor XR] 75 mg PO DAILY 10/16/16 Naproxen [Naprosyn] 500 mg PO BID #30 tab 11/09/16 tiZANidine [Zanaflex] 4 mg PO TID PRN #30 tab 11/09/16 Amoxicillin [Amoxil] 1,000 mg PO BID #30 cap 11/23/16 diphenhydrAMINE HCL [Benadryl] 25 mg PO Q6HRS PRN #30 cap 11/23/16 predniSONE 10 mg PO DAILY #7 tab 11/23/16 Desonide 0.05 gm TOP TID #30 gm 12/24/16 predniSONE 20 mg PO DAILY #5 tab 12/24/16 predniSONE 10 mg PO AC #7 tab 01/04/17 Desonide [Desowen] 0.5 ml TOP TID PRN #60 gm 02/01/17 Azithromycin [Zithromax Z-Jatinder] 1 ea PO DAILY #1 pack 03/18/17
[2017-05-14] MEDS ORDERED: KETOROLAC TROMETHAMINE INJ 60 MG/2 ML VIAL IM ONE (21:49)
--- NOTE | 2017-05-14 22:36 | RAD ---
Examination: XR CHEST 2 VIEWS dated 05/14/2017 9:26 PM LINING SEWER History: pain after falling off horse Comparison: 03/18/2017 Technique: Two views of the chest, four views of the ribs. Findings: The lungs are clear bilaterally. No pneumothorax or pleural effusion. The cardiomediastinal silhouette is within normal limits. Old left-sided rib fractures. No displaced fracture is identified. Cervical spine fusion hardware. Left shoulder surgical anchors. Impression: No displaced rib fracture. Old left-sided rib fractures. Electronically signed by: Jose Villarreal MD 05/14/2017 10:35 PM LINING SE[employer]
--- NOTE | 2017-05-14 22:45 | CT ---
EXAM DESCRIPTION: Abdomen w/o Contrast CLINICAL HISTORY: 51 years Male, RUQ tend after falling off horse COMPARISON: None. TECHNIQUE: Contiguous axial CT images of the abdomen and pelvis were acquired without administration of intravenous contrast. Coronal and sagittal reformatted images are provided. This exam was performed according to our departmental dose-optimization program which includes use of Automated Exposure Control, adjustment of the mA and/or kV according to patient size and/or use of iterative reconstruction technique. FINDINGS: Chest base: Unremarkable. Liver: Scattered hypoattenuation of the liver suggestive of hepatic steatosis. Gallbladder: The gallbladder is nondistended limiting evaluation. Spleen: Unremarkable. Adrenals: Unremarkable. Pancreas: Unremarkable. Right Kidney: No renal stones or hydronephrosis. Left Kidney: No renal stones or hydronephrosis. Aorta and branch vessels: Mild calcific atherosclerosis of the aortoiliac vessels. Lymph nodes: No lymphadenopathy. Bowels: No obstruction. Colon: No wall thickening. Appendix: Normal. Peritoneum: No free air or free fluid. Pelvic organs: Unremarkable. Bladder: Unremarkable. Bones and soft tissues: No acute osseous or soft tissue abnormalities. IMPRESSION: No acute intra-abdominal abnormality. No fractures. Scattered probable hepatic steatosis. Electronically signed by: Jose Villarreal MD 05/14/2017 10:44 PM [facility]
[2017-05-14] MEDS ORDERED: ACETAMINOPHEN W/COD #3 TAB (ER Disp) PO ONE (22:50)
[2017-05-14 23:07] VITALS: BP 124/85; O2SAT 96
--- NOTE | 2017-05-15 01:07 | RAD ---
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 Findings: The lungs are clear bilaterally. No pneumothorax or pleural effusion. The cardiomediastinal silhouette is within normal limits. Old left-sided rib fractures. No displaced fracture is identified. Cervical spine fusion hardware. Left shoulder surgical anchors. Impression: No displaced rib fracture. Old left-sided rib fractures. Electronically signed by: Jose Villarreal MD 05/14/2017 10:35 PM RESEARCH INSTRUCTOR
--- NOTE | 2017-05-15 01:07 | RAD ---
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 Findings: The lungs are clear bilaterally. No pneumothorax or pleural effusion. The cardiomediastinal silhouette is within normal limits. Old left-sided rib fractures. No displaced fracture is identified. Cervical spine fusion hardware. Left shoulder surgical anchors. Impression: No displaced rib fracture. Old left-sided rib fractures. Electronically signed by: Jose Villarreal MD 05/14/2017 10:35 PM QUALITY ASSURANCE ASSISTANT
== END 2017-05-14 23:07 | disposition home or self-care (01) ==
LOC: ER 20:51
DX: S20.211A Contusion of right front wall of thorax, initial encounter (principal); Z79.899 Other long term (current) drug therapy; Z88.2 Allergy status to sulfonamides; Z87.891 Personal history of nicotine dependence; V80.010A Animal-rider injured by fall from or being thrown from horse in noncollision accident, initial encounter; Y93.52 Activity, horseback riding; Y92.9 Unspecified place or not applicable
CPT/HCPCS: 71020; 71101; 74150; J1885

== ENCOUNTER 2017-06-27 18:17 | Emergency (ER) | payer MEDICARE, OTHER ==
[2017-06-27 18:49] VITALS: O2SAT 94
[2017-06-27] MEDS ORDERED: KETOROLAC TROMETHAMINE INJ 30 MG/ML VIAL IM ONE (18:54)
[2017-06-27] MEDS ORDERED: HYDROcodone 10MG/APAP 325MG 1 EA TAB PO ONE (18:54)
--- NOTE | 2017-06-27 19:47 | RAD ---
EXAM DESCRIPTION: Shoulder,Right 2 or More Views CLINICAL HISTORY: 51 years, Male, pain 10 d s/p replacement COMPARISON: Right shoulder radiograph dated 11/09/2009. FINDINGS: Three views of the right shoulder were performed. A partial right shoulder arthroplasty is in place with a single humeral head component. Stable appearance of the glenoid. On the Y view, the humeral component projects directly over the glenoid. No fracture is seen. IMPRESSION: Status post partial right shoulder arthroplasty. No evidence of complication. Electronically signed by: Destini Whitman MD 06/27/2017 7:46 PM [facility]
--- NOTE | 2017-06-27 19:56 | ED.PDOC ---
History of Present Illness - General Chief Complaint: General Stated Complaint: shoulder pain Time Seen by Provider: 06/27/17 18:39 Source: patient Exam Limitations: no limitations - History of Present Illness Initial Comments: the patient is 51-year-old male presenting to the emergency room secondary to right shoulder pain. It started hurting a little little more than normal today about 3 or 4 hours ago. He is unsure if he moved it more than he should've. He had ashoulder replacement done about 10 or 11 days ago. There is no significant inflammation. There is minimal swelling. The operative site looks good. He does appear to be neurovascularly intact. Timing/Duration: unsure Severity: moderate Improving Factors: immobilization Worsening Factors: movement Associated Symptoms: denies symptoms Allergies/Adverse Reactions: Allergies Sulfa Antibiotics Adverse Reaction (Verified 06/27/17 18:49) Home Medications: Ambulatory Orders Bupropion HCl [Wellbutrin Xl] 150 mg PO DAILY 02/18/16 Simvastatin [Zocor] 20 mg PO DAILY 02/18/16 Amphetamine-Dextroamphetamine [Adderall] 20 mg PO DAILY 10/16/16 Venlafaxine Xr [Effexor XR] 75 mg PO DAILY 10/16/16 Naproxen [Naprosyn] 500 mg PO BID #30 tab 11/09/16 tiZANidine [Zanaflex] 4 mg PO TID PRN #30 tab 11/09/16 Amoxicillin [Amoxil] 1,000 mg PO BID #30 cap 11/23/16 diphenhydrAMINE HCL [Benadryl] 25 mg PO Q6HRS PRN #30 cap 11/23/16 predniSONE 10 mg PO DAILY #7 tab 11/23/16 Desonide 0.05 gm TOP TID #30 gm 12/24/16 predniSONE 20 mg PO DAILY #5 tab 12/24/16 predniSONE 10 mg PO AC #7 tab 01/04/17 Desonide [Desowen] 0.5 ml TOP TID PRN #60 gm 02/01/17 Azithromycin [Zithromax Z-Jatinder] 1 ea PO DAILY #1 pack 03/18/17 Review of Systems - Review of Systems Constitutional: States: no symptoms reported EENTM: States: no symptoms reported Respiratory: States: no symptoms reported Cardiology: States: no symptoms reported Gastrointestinal/Abdominal: States: no symptoms reported Genitourinary: States: no symptoms reported Musculoskeletal: States: see HPI Skin: States: no symptoms reported Neurological: States: no symptoms reported Endocrine: States: no symptoms reported All other Systems: No Change from Baseline Past Medical History (General) - Patient Medical History Hx Seizures: No Hx Stroke: No Hx Dementia: No Hx Asthma: No Hx of COPD: No Hx Cardiac Disorders: Yes - high cholesterol Hx Congestive Heart Failure: No Hx Pacemaker: No Hx Hypertension: No Hx Thyroid Disease: No Hx Diabetes: No Hx Gastroesophageal Reflux: No Hx Renal Disease: No Hx Cancer: No Hx of HIV: No Hx Hepatitis C: No Hx MRSA: No - Vaccination History Hx Tetanus, Diphtheria Vaccination: Yes Hx Influenza Vaccination: No Hx Pneumococcal Vaccination: No - Social History Hx Tobacco Use: Yes Hx Chewing Tobacco Use: No Hx Alcohol Use: Yes - social Hx Substance Use: No Hx Substance Use Treatment: No Hx Depression: No Hx Physical Abuse: No Hx Emotional Abuse: No Hx Suspected Abuse: No - Female History Patient : No Family Medical History - Family History Father Family History: Unknown Living Status: Unknown Hx Family Hypertension: Yes Physical Exam - Physical Exam General Appearance: Alert, Comfortable, No apparent distress Eye Exam: bilateral normal Ears, Nose, Throat: hearing grossly normal, normal ENT inspection Neck: full range of motion, supple Respiratory: no respiratory distress, no accessory muscle use Cardiovascular/Chest: normal peripheral pulses, no edema Peripheral Pulses: radial,right: 2+, radial,left: 2+ Rectal Exam: deferred Back Exam: normal inspection Extremity: other - appropriate swelling to the right shoulder status post surgery. Operative site appears to be healing well. Limited range of motion as expected. Normal range of motion distally. 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 X-ray show good alignment. No evidence clinically of any infection. The patient was given a dose of Toradol and hydrocodone here. He can resume his home pain medications when he gets home. He should follow up with his primary care doctor and orthopedist as previously directed. ER warnings were given for any significant worsening. Topical heat in the form of a heat pad may prove beneficial. Icey hot or Biofreeze freeze may also help topically but he should avoid the surgical line. Departure - Departure Clinical Impression: Postoperative pain, acute, shoulder Disposition: Discharge to Home or Self Care Condition: Fair Departure Forms: ED Discharge - Pt. Copy, Patient Portal Self Enrollment Instructions: DI for Postoperative Pain Diet: regular diet Activity: no pushing/pulling with affected limb Referrals: Jose Ceballos MD [Primary Care Provider] - 1-2 Weeks Home Medications: Ambulatory Orders Bupropion HCl [Wellbutrin Xl] 150 mg PO DAILY 02/18/16 Simvastatin [Zocor] 20 mg PO DAILY 02/18/16 Amphetamine-Dextroamphetamine [Adderall] 20 mg PO DAILY 10/16/16 Venlafaxine Xr [Effexor XR] 75 mg PO DAILY 10/16/16 Naproxen [Naprosyn] 500 mg PO BID #30 tab 11/09/16 tiZANidine [Zanaflex] 4 mg PO TID PRN #30 tab 11/09/16 Amoxicillin [Amoxil] 1,000 mg PO BID #30 cap 11/23/16 diphenhydrAMINE HCL [Benadryl] 25 mg PO Q6HRS PRN #30 cap 11/23/16 predniSONE 10 mg PO DAILY #7 tab 11/23/16 Desonide 0.05 gm TOP TID #30 gm 12/24/16 predniSONE 20 mg PO DAILY #5 tab 12/24/16 predniSONE 10 mg PO AC #7 tab 01/04/17 Desonide [Desowen] 0.5 ml TOP TID PRN #60 gm 02/01/17 Azithromycin [Zithromax Z-Jatinder] 1 ea PO DAILY #1 pack 03/18/17 Additional Instructions: the patient is a 51-year-old male presenting with right shoulder discomfort approximately 10 days after his shoulder surgery. X-ray show good alignment. No evidence clinically of any infection. The patient was given a dose of Toradol and hydrocodone here. He can resume his home pain medications when he gets home. He should follow up with his primary care doctor and orthopedist as previously directed. ER warnings were given for any significant worsening. Topical heat in the form of a heat pad may prove beneficial. Icey hot or Biofreeze freeze may also help topically but he should avoid the surgical line.
[2017-06-27 20:01] VITALS: BP 133/88; TEMP 95.8
== END 2017-06-27 20:03 | disposition home or self-care (01) ==
LOC: ER 18:17
DX: G89.18 Other acute postprocedural pain (principal); M25.511 Pain in right shoulder; F17.200 Nicotine dependence, unspecified, uncomplicated; Z96.611 Presence of right artificial shoulder joint; Z88.2 Allergy status to sulfonamides; Z79.899 Other long term (current) drug therapy
CPT/HCPCS: 73030; J1885

== ENCOUNTER → 2017-07-31 | Outpatient (CLI) | payer MEDICARE, OTHER | LOC: GMA 13:34 | PROVIDERS: ATTEND Physician Assistant | DX: Z12.5 Encounter for screening for malignant neoplasm of prostate (principal); F43.12 Post-traumatic stress disorder, chronic; R53.83 Other fatigue | CPT/HCPCS: 84403; 84439; 84443; G0103 ==

== ENCOUNTER → 2017-08-04 | Outpatient (CLI) | payer MEDICARE, OTHER | LOC: GMAJ 18:16 | PROVIDERS: ATTEND Family Medicine | DX: M79.641 Pain in right hand (principal); M79.642 Pain in left hand ==

== ENCOUNTER 2017-08-28 18:13 | Emergency (ER) | payer MEDICARE, OTHER ==
--- NOTE | 2017-08-28 19:02 | ED.PDOC ---
History of Present Illness - General Chief Complaint: Abdominal Pain Stated Complaint: epigastric pain Time Seen by Provider: 08/28/17 18:58 Source: patient Exam Limitations: no limitations - History of Present Illness Initial Comments: Surinder Parikh 52 y/o male stated that he has difficulty swallowing solid and sometimes liquid food for the last 5 days and getting worse for the last 2 days .Wilmer some burning pains on his epigastrium and going up to his chest.Denies hematemesis,hemoptysis,and melena.No coughh or uri symptoms. Timing/Duration: constant, other - see hpi Improving Factors: nothing Worsening Factors: eating Associated Symptoms: other - see hpi Allergies/Adverse Reactions: Allergies Sulfa Antibiotics Adverse Reaction (Verified 08/28/17 20:49) Home Medications: Ambulatory Orders Bupropion HCl [Wellbutrin Xl] 150 mg PO DAILY 02/18/16 Simvastatin [Zocor] 20 mg PO DAILY 02/18/16 Amphetamine-Dextroamphetamine [Adderall] 20 mg PO DAILY 10/16/16 Venlafaxine Xr [Effexor XR] 75 mg PO DAILY 10/16/16 Naproxen [Naprosyn] 500 mg PO BID #30 tab 11/09/16 tiZANidine [Zanaflex] 4 mg PO TID PRN #30 tab 11/09/16 Amoxicillin [Amoxil] 1,000 mg PO BID #30 cap 11/23/16 diphenhydrAMINE HCL [Benadryl] 25 mg PO Q6HRS PRN #30 cap 11/23/16 predniSONE 10 mg PO DAILY #7 tab 11/23/16 Desonide 0.05 gm TOP TID #30 gm 12/24/16 predniSONE 20 mg PO DAILY #5 tab 12/24/16 predniSONE 10 mg PO AC #7 tab 01/04/17 Desonide [Desowen] 0.5 ml TOP TID PRN #60 gm 02/01/17 Azithromycin [Zithromax Z-Jatinder] 1 ea PO DAILY #1 pack 03/18/17 Pantoprazole Sodium [Protonix] 20 mg PO BID #60 tab 08/28/17 Sucralfate Suspension [Carafate Suspension] 1 gm PO ACHS #120 ml 08/28/17 Review of Systems - Review of Systems Constitutional: States: no symptoms reported EENTM: States: no symptoms reported Respiratory: States: no symptoms reported Cardiology: States: no symptoms reported Gastrointestinal/Abdominal: States: see HPI Musculoskeletal: States: no symptoms reported Neurological: States: no symptoms reported All other Systems: Reviewed and Negative, No Change from Baseline Past Medical History (General) - Patient Medical History Hx Seizures: No Hx Stroke: No Hx Dementia: No Hx Asthma: No Hx of COPD: No Hx Cardiac Disorders: Yes - high cholesterol Hx Congestive Heart Failure: No Hx Pacemaker: No Hx Hypertension: No Hx Thyroid Disease: No Hx Diabetes: No Hx Gastroesophageal Reflux: No Hx Renal Disease: No Hx Cancer: No Hx of HIV: No Hx Hepatitis C: No Hx MRSA: No Hx Other PMH: Yes - ptsd,TBI Surgical History: appendectomy, other - right ankle,knees,c-spine,cardiac cath- no coronary lesion noted - Vaccination History Hx Tetanus, Diphtheria Vaccination: Yes Hx Influenza Vaccination: No Hx Pneumococcal Vaccination: No - Social History Hx Tobacco Use: Yes Hx Chewing Tobacco Use: No Hx Alcohol Use: Yes - social Hx Substance Use: No Hx Substance Use Treatment: No Hx Depression: No Hx Physical Abuse: No Hx Emotional Abuse: No Hx Suspected Abuse: No - Female History Patient : No Family Medical History - Family History Father Family History: Unknown Living Status: Unknown Hx Family Hypertension: Yes Physical Exam - Physical Exam General Appearance: Alert, Comfortable, No apparent distress Eye Exam: bilateral normal Ears, Nose, Throat: hearing grossly normal, normal ENT inspection, normal pharynx Neck: full range of motion, supple Cardiovascular/Chest: normal peripheral pulses, regular rate, rhythm, no murmur Peripheral Pulses: radial,right: 2+, radial,left: 2+ Gastrointestinal/Abdominal: normal bowel sounds, non tender, soft, no organomegaly Back Exam: no CVA tenderness, no vertebral tenderness Extremity: non-tender, no pedal edema, no calf tenderness Neurologic: alert, normal mood/affect, oriented x 3 Skin Exam: normal color, warm/dry Progress - Progress Progress: 08/28/17 21:53 Last Vital Signs Temp 97.1 F L 08/28/17 19:24 Pulse 116 H 08/28/17 19:24 Resp 20 08/28/17 19:24 BP 116/81 08/28/17 19:24 Pulse Ox 94 L 08/28/17 19:24 02/23/18 21:54 Wilmer better after Gi slider ,Protonix;and reglan - Results/Orders Results/Orders: 08/28/17 19:04 CARDIAC PANEL,ER Stat HEPATIC FUNCTION PANEL Stat LIPASE Stat Chest,1 View [RAD] Stat URINALYSIS Stat Laboratory Results - last 24 hr 08/28/17 08/28/17 19:40 20:10 WBC 6.3 RBC 4.60 L Hgb 13.9 L Hct 40.4 L MCV 87.8 MCH 30.2 MCHC 34.4 RDW 14.4 Plt Count 296 MPV 8.4 Absolute Neuts (auto) 2.80 Absolute Lymphs (auto) 2.80 Absolute Monos (auto) 0.40 Absolute Eos (auto) 0.20 Absolute Basos (auto) 0.10 Neutrophils % 44.0 Lymphocytes % 44.0 Monocytes % 6.9 Eosinophils % 3.5 Basophils % 1.6 PT 11.2 INR 0.990 PTT (SP) 30.1 Sodium 138 Potassium 3.7 Chloride 105 Carbon Dioxide 22 Anion Gap 14.7 BUN 16 Creatinine 0.94 BUN/Creatinine Ratio 17.0 Random Glucose 139 H Serum Osmolality 279.1 Calcium 9.3 Magnesium 2.1 Total Bilirubin 0.4 Direct Bilirubin < 0.1 Indirect Bilirubin 0.3 AST 28 ALT 39 Alkaline Phosphatase 85 Creatine Kinase 130 CK-MB (CK-2) 1.6 CK-MB (CK-2) % Not Reportable Troponin I < 0.02 Serum Total Protein 7.0 Albumin 4.4 Lipase 31 Urine Color Yellow Urine Appearance Clear Urine pH 5.0 Ur Specific [place] >= 1.030 Urine Protein Negative Urine Glucose (UA) Negative Urine Ketones Negative Urine Blood Small H Urine Nitrite Negative Urine Bilirubin Negative Urine Urobilinogen 0.2 Ur Leukocyte Esterase Negative Urine RBC 0 Urine WBC 0 Ur Epithelial Cells 0 Urine Bacteria 0 - EKG/XRAY/CT XRAY: chest - no acute abnormalities CT Ordered: Yes - soft tissue neck-no acute abnormalities Departure - Departure Clinical Impression: Epigastric burning sensation Dysphagia Qualifiers: Dysphagia type: unspecified Qualified Code(s): R13.10 - Dysphagia, unspecified Time of Disposition: 21:56 Disposition: Discharge to Home or Self Care Condition: Good Departure Forms: ED Discharge - Pt. Copy, Patient Portal Self Enrollment Instructions: Esophageal Dysphagia, DI for Esophageal Dysphagia Diet: other - SOFT DIET ONLY UNTIL SEEN BY GI SPECIALIST Referrals: Jose Ceballos MD [Primary Care Provider] - 1-2 Weeks Prescriptions: Pantoprazole Sodium [Protonix] 20 mg PO BID #60 tab Sucralfate Suspension [Carafate Suspension] 1 gm PO ACHS #120 ml Home Medications: Ambulatory Orders Bupropion HCl [Wellbutrin Xl] 150 mg PO DAILY 02/18/16 Simvastatin [Zocor] 20 mg PO DAILY 02/18/16 Amphetamine-Dextroamphetamine [Adderall] 20 mg PO DAILY 10/16/16 Venlafaxine Xr [Effexor XR] 75 mg PO DAILY 10/16/16 Naproxen [Naprosyn] 500 mg PO BID #30 tab 11/09/16 tiZANidine [Zanaflex] 4 mg PO TID PRN #30 tab 11/09/16 Amoxicillin [Amoxil] 1,000 mg PO BID #30 cap 11/23/16 diphenhydrAMINE HCL [Benadryl] 25 mg PO Q6HRS PRN #30 cap 11/23/16 predniSONE 10 mg PO DAILY #7 tab 11/23/16 Desonide 0.05 gm TOP TID #30 gm 12/24/16 predniSONE 20 mg PO DAILY #5 tab 12/24/16 predniSONE 10 mg PO AC #7 tab 01/04/17 Desonide [Desowen] 0.5 ml TOP TID PRN #60 gm 02/01/17 Azithromycin [Zithromax Z-Jatinder] 1 ea PO DAILY #1 pack 03/18/17 Pantoprazole Sodium [Protonix] 20 mg PO BID #60 tab 08/28/17 Sucralfate Suspension [Carafate Suspension] 1 gm PO ACHS #120 ml 08/28/17 Additional Instructions: KEEP APPOINTMENT WITH GI SPECIALIST REMI
[2017-08-28] MEDS ORDERED: METOCLOPRAMIDE HCL INJ 10 MG/2 ML VIAL IV ONE (19:30)
[2017-08-28] MEDS ORDERED: PANTOPRAZOLE INJECTION 80 MG in SODIUM CHLORIDE 0.9% 100ML 80 ML IVPB ONE (19:30)
[2017-08-28] MEDS ORDERED: ALUM & MAG HYDROX-SIMETHICONE 30 ML, LIDOCAINE VISCOUS 2% 15 ML PO ONE ×2 (19:30)
[2017-08-28 19:33] VITALS: TEMP 97.1
[2017-08-28] MEDS ORDERED: LIDOCAINE HCL 2% (MOUTH-THROAT) 15 ML UD ONE (20:12)
[2017-08-28] MEDS ORDERED: ALUM & MAG HYDROX-SIMETHICONE 30 ML UD ONE (20:12)
[2017-08-28] MEDS ORDERED: PANTOPRAZOLE SODIUM IV 40 MG VIAL ONE (20:13)
[2017-08-28] MEDS ORDERED: SODIUM CHLORIDE 0.9% 100ML 100 ML IVPB ONE (20:13)
--- NOTE | 2017-08-28 20:19 | RAD ---
EXAM DESCRIPTION: Chest,1 View CLINICAL HISTORY: chest discomfort COMPARISON: 05/14/2017 FINDINGS: Cardiac silhouette is within normal limits. There is no focal parenchymal or pleural disease. Visualized osseous structures are within normal limits. IMPRESSION: No evidence of acute cardiopulmonary disease. Electronically signed by: You Britton 08/28/2017 8:18 PM [facility]
--- NOTE | 2017-08-28 21:16 | CT ---
EXAM DESCRIPTION: Soft Tissue Neck CLINICAL HISTORY: 52 years Male gastrograffin swallow COMPARISON: None. TECHNIQUE: Contiguous axial images obtained through the neck without IV contrast. Reformatted images obtained. This exam was performed according to our department optimization program which includes automated exposure control, adjustment of the mA and/or kv according to patient size and/or use of iterative reconstruction technique. FINDINGS: There are postoperative changes, with cervical spine hardware in place. There is mild reversal of normal lordotic curvature at the level of surgery. No acute complications are seen but there is significant streak artifact from metallic hardware. This limits detail. There is no definite abnormality of the spinal cord configuration or attenuation. Shotty lymph nodes are seen in the neck. No definite pathologic lymphadenopathy. No definite prevertebral soft tissue swelling. IMPRESSION: No acute abnormality is seen. Electronically signed by: You Britton 08/28/2017 9:15 PM [facility]
[2017-08-28 22:31] VITALS: BP 123/82; O2SAT 96
== END 2017-08-28 22:30 | disposition home or self-care (01) ==
LOC: ER 18:13
DX: R13.10 Dysphagia, unspecified (principal); Z87.891 Personal history of nicotine dependence; E78.00 Pure hypercholesterolemia, unspecified
CPT/HCPCS: 36415; 70490; 71045; 80048; 80076; 81001; 82550; 82553; 83690; 84484; 85025; 85610; 85730; J2765; J7050

== ENCOUNTER 2017-09-11 15:52 | Emergency (ER) | payer MEDICARE, OTHER ==
[2017-09-11 16:40] VITALS: TEMP 99.1
[2017-09-11] MEDS ORDERED: KETOROLAC TROMETHAMINE INJ 30 MG/ML VIAL IM ONE (16:47)
[2017-09-11] MEDS ORDERED: ORPHENADRINE CITRATE 30 MG/ML AMP IM ONE (16:48)
--- NOTE | 2017-09-11 16:51 | ED.PDOC ---
History of Present Illness - General Chief Complaint: Upper Extremity Injury Time Seen by Provider: 09/11/17 15:59 Source: patient Exam Limitations: no limitations - History of Present Illness Initial Comments: Patient presents with left elbow pain. It has been going on for a month but today it finally got bad enough to where he wanted to be seen. The pain is lateral at the lateral epicondyle with radiation to the proximal lateral third of the radius. Constant, sharp. Worse with movement better with rest. Has nad previous episodes. No recent traumas. No other complaints. Timing/Duration: other - one month Severity: moderate Improving Factors: rest Worsening Factors: movement Associated Symptoms: denies symptoms Allergies/Adverse Reactions: Allergies Sulfa Antibiotics Adverse Reaction (Verified 08/28/17 20:49) Home Medications: Ambulatory Orders Bupropion HCl [Wellbutrin Xl] 150 mg PO DAILY 02/18/16 Simvastatin [Zocor] 20 mg PO DAILY 02/18/16 Amphetamine-Dextroamphetamine [Adderall] 20 mg PO DAILY 10/16/16 Venlafaxine Xr [Effexor XR] 75 mg PO DAILY 10/16/16 Naproxen [Naprosyn] 500 mg PO BID #30 tab 11/09/16 tiZANidine [Zanaflex] 4 mg PO TID PRN #30 tab 11/09/16 Amoxicillin [Amoxil] 1,000 mg PO BID #30 cap 11/23/16 diphenhydrAMINE HCL [Benadryl] 25 mg PO Q6HRS PRN #30 cap 11/23/16 predniSONE 10 mg PO DAILY #7 tab 11/23/16 Desonide 0.05 gm TOP TID #30 gm 12/24/16 predniSONE 20 mg PO DAILY #5 tab 12/24/16 predniSONE 10 mg PO AC #7 tab 01/04/17 Desonide [Desowen] 0.5 ml TOP TID PRN #60 gm 02/01/17 Azithromycin [Zithromax Z-Jatinder] 1 ea PO DAILY #1 pack 03/18/17 Pantoprazole Sodium [Protonix] 20 mg PO BID #60 tab 08/28/17 Sucralfate Suspension [Carafate Suspension] 1 gm PO ACHS #120 ml 08/28/17 Cyclobenzaprine HCl [Flexeril] 10 mg PO BEDTIME #10 tab 09/11/17 Review of Systems - Review of Systems Constitutional: States: no symptoms reported EENTM: States: no symptoms reported Respiratory: States: no symptoms reported Cardiology: States: no symptoms reported Gastrointestinal/Abdominal: States: no symptoms reported Genitourinary: States: no symptoms reported Musculoskeletal: States: see HPI Skin: States: no symptoms reported Neurological: States: no symptoms reported Endocrine: States: no symptoms reported Hematologic/Lymphatic: States: no symptoms reported Past Medical History (General) - Patient Medical History Hx Seizures: No Hx Stroke: No Hx Dementia: No Hx Asthma: No Hx of COPD: No Hx Cardiac Disorders: Yes - high cholesterol Hx Congestive Heart Failure: No Hx Pacemaker: No Hx Hypertension: No Hx Thyroid Disease: No Hx Diabetes: No Hx Gastroesophageal Reflux: No Hx Renal Disease: No Hx Cancer: No Hx of HIV: No Hx Hepatitis C: No Hx MRSA: No MRSA Source:: Wound Surgical History: other - Vaccination History Hx Tetanus, Diphtheria Vaccination: Yes Hx Influenza Vaccination: No Hx Pneumococcal Vaccination: No - Social History Hx Tobacco Use: Yes Hx Chewing Tobacco Use: No Hx Alcohol Use: Yes - social Hx Substance Use: No Hx Substance Use Treatment: No Hx Depression: No Hx Physical Abuse: No Hx Emotional Abuse: No Hx Suspected Abuse: No - Female History Patient : No Family Medical History - Family History Father Family History: Unknown Living Status: Unknown Hx Family Hypertension: Yes Physical Exam - Physical Exam General Appearance: Alert Respiratory: chest non-tender, lungs clear, normal breath sounds Cardiovascular/Chest: normal peripheral pulses, regular rate, rhythm, no edema Gastrointestinal/Abdominal: normal bowel sounds, non tender, soft Extremity: other - [place] with supination of the left forearm and flexion. Patient has 5/5 strength to supination/pronation/flexion/extension of the left arm. Full sensation over entire arm. TTP over supinator muscle. Neurologic: no motor/sensory deficits Progress - Progress Progress: 09/11/17 17:26 3 view of the left elbow showed no fractures nor dislocations. Patient given Norflex 60 mg IM x one and toradol 30 mg IM x one with little relief. Care instructions given. Departure - Departure Clinical Impression: Tendonitis Disposition: Discharge to Home or Self Care Condition: Good Departure Forms: ED Discharge - Pt. Copy, Patient Portal Self Enrollment Instructions: DI for Arm Pain Diet: resume usual diet Activity: increase activity as tolerated Referrals: Jose Ceballos MD [Primary Care Provider] - 1-2 Weeks Prescriptions: Cyclobenzaprine HCl [Flexeril] 10 mg PO BEDTIME #10 tab Home Medications: Ambulatory Orders Bupropion HCl [Wellbutrin Xl] 150 mg PO DAILY 02/18/16 Simvastatin [Zocor] 20 mg PO DAILY 02/18/16 Amphetamine-Dextroamphetamine [Adderall] 20 mg PO DAILY 10/16/16 Venlafaxine Xr [Effexor XR] 75 mg PO DAILY 10/16/16 Naproxen [Naprosyn] 500 mg PO BID #30 tab 11/09/16 tiZANidine [Zanaflex] 4 mg PO TID PRN #30 tab 11/09/16 Amoxicillin [Amoxil] 1,000 mg PO BID #30 cap 11/23/16 diphenhydrAMINE HCL [Benadryl] 25 mg PO Q6HRS PRN #30 cap 11/23/16 predniSONE 10 mg PO DAILY #7 tab 11/23/16 Desonide 0.05 gm TOP TID #30 gm 12/24/16 predniSONE 20 mg PO DAILY #5 tab 12/24/16 predniSONE 10 mg PO AC #7 tab 01/04/17 Desonide [Desowen] 0.5 ml TOP TID PRN #60 gm 02/01/17 Azithromycin [Zithromax Z-Jatinder] 1 ea PO DAILY #1 pack 03/18/17 Pantoprazole Sodium [Protonix] 20 mg PO BID #60 tab 08/28/17 Sucralfate Suspension [Carafate Suspension] 1 gm PO ACHS #120 ml 08/28/17 Cyclobenzaprine HCl [Flexeril] 10 mg PO BEDTIME #10 tab 09/11/17 Additional Instructions: Use deep massage on the affected area for 15 minutes every night. You may use heat or ice for healing and pain relief. Ibuprofen or tylenol for pain control.
--- NOTE | 2017-09-11 17:25 | RAD ---
EXAM DESCRIPTION: Elbow,Left 3 Views CLINICAL HISTORY: elbow pain COMPARISON: None. TECHNIQUE: 3 views left FINDINGS: A small ossicle is observed over the medial femoral condyle no fracturing is detected. No joint effusion is seen. IMPRESSION: No fracturing is detected. Electronically signed by: Manuel Carbajal MD 09/11/2017 5:24 PM [facility]
[2017-09-11 17:49] VITALS: BP 118/74; O2SAT 91
== END 2017-09-11 17:48 | disposition home or self-care (01) ==
LOC: ER 15:52
DX: M77.9 Enthesopathy, unspecified (principal); Z87.891 Personal history of nicotine dependence
CPT/HCPCS: 73080; J1885; J2360

== ENCOUNTER 2017-09-21 12:37 | Emergency (ER) | payer MEDICARE, OTHER ==
[2017-09-21] MEDS ORDERED: PROMETHAZINE HCL INJ 12.5 MG in SODIUM CHLORIDE 0.9% 50ML 50 ML IVPB ONE (13:45)
[2017-09-21] MEDS ORDERED: SODIUM CHLORIDE 0.9% 1000ML 1,000 ML IVS ONE (13:45)
[2017-09-21] MEDS ORDERED: LORazepam 0.5 MG TAB PO ONE (13:45)
--- NOTE | 2017-09-21 13:56 | ED.PDOC ---
History of Present Illness - General Chief Complaint: GI Problem Time Seen by Provider: 09/21/17 13:29 Source: patient Exam Limitations: no limitations Additional Information: PT STOPPED SEROQUEL 2 DAYS AGO. WAS TAKING 1200MG FOR SLEEP. EXPERIENCED BLOATING AND DECREASED ALERTNESS SO HE STOPPED ABRUPTLY. - History of Present Illness Timing/Duration: other - 1 DAY Severity: moderate Improving Factors: nothing Worsening Factors: nothing Associated Symptoms: nausea/vomiting Allergies/Adverse Reactions: Allergies Sulfa Antibiotics Adverse Reaction (Verified 08/28/17 20:49) Home Medications: Ambulatory Orders Bupropion HCl [Wellbutrin Xl] 150 mg PO DAILY 02/18/16 Simvastatin [Zocor] 20 mg PO DAILY 02/18/16 Amphetamine-Dextroamphetamine [Adderall] 20 mg PO DAILY 10/16/16 Venlafaxine Xr [Effexor XR] 75 mg PO DAILY 10/16/16 Naproxen [Naprosyn] 500 mg PO BID #30 tab 11/09/16 tiZANidine [Zanaflex] 4 mg PO TID PRN #30 tab 11/09/16 Amoxicillin [Amoxil] 1,000 mg PO BID #30 cap 11/23/16 diphenhydrAMINE HCL [Benadryl] 25 mg PO Q6HRS PRN #30 cap 11/23/16 predniSONE 10 mg PO DAILY #7 tab 11/23/16 Desonide 0.05 gm TOP TID #30 gm 12/24/16 predniSONE 20 mg PO DAILY #5 tab 12/24/16 predniSONE 10 mg PO AC #7 tab 01/04/17 Desonide [Desowen] 0.5 ml TOP TID PRN #60 gm 02/01/17 Azithromycin [Zithromax Z-Jatinder] 1 ea PO DAILY #1 pack 03/18/17 Pantoprazole Sodium [Protonix] 20 mg PO BID #60 tab 08/28/17 Sucralfate Suspension [Carafate Suspension] 1 gm PO ACHS #120 ml 08/28/17 Cyclobenzaprine HCl [Flexeril] 10 mg PO BEDTIME #10 tab 09/11/17 Lorazepam [Ativan] 1 mg PO TID PRN #10 tab 09/21/17 Promethazine Supp [Phenergan Suppository] 25 mg [place] Q4HR PRN #14 sup 09/21/17 Review of Systems - Review of Systems Constitutional: Denies: chills, fever EENTM: States: no symptoms reported Respiratory: States: no symptoms reported Cardiology: States: no symptoms reported Gastrointestinal/Abdominal: States: abdominal pain, diarrhea, nausea, vomiting Musculoskeletal: States: no symptoms reported Skin: States: no symptoms reported Neurological: States: no symptoms reported Endocrine: States: no symptoms reported. Denies: excessive sweating, intolerance to cold Hematologic/Lymphatic: States: no symptoms reported Past Medical History (General) - Patient Medical History Hx Seizures: No Hx Stroke: No Hx Dementia: No Hx Asthma: No Hx of COPD: No Hx Cardiac Disorders: Yes - high cholesterol Hx Congestive Heart Failure: No Hx Pacemaker: No Hx Hypertension: No Hx Thyroid Disease: No Hx Diabetes: No Hx Gastroesophageal Reflux: No Hx Renal Disease: No Hx Cancer: No Hx of HIV: No Hx Hepatitis C: No Hx MRSA: No Hx Other PMH: Yes - PTSD MRSA Source:: Wound - Vaccination History Hx Tetanus, Diphtheria Vaccination: Yes Hx Influenza Vaccination: No Hx Pneumococcal Vaccination: No - Social History Hx Tobacco Use: Yes Hx Chewing Tobacco Use: No Hx Alcohol Use: Yes - social Hx Substance Use: No Hx Substance Use Treatment: No Hx Depression: No Hx Physical Abuse: No Hx Emotional Abuse: No Hx Suspected Abuse: No - Female History Patient : No Family Medical History - Family History Father Family History: Unknown Living Status: Unknown Hx Family Hypertension: Yes Physical Exam - Physical Exam General Appearance: Alert, No apparent distress Eye Exam: bilateral normal Ears, Nose, Throat: normal ENT inspection, other - MOIST MM Neck: non-tender, full range of motion, supple Respiratory: lungs clear, normal breath sounds, no respiratory distress Cardiovascular/Chest: regular rate, rhythm, no murmur Gastrointestinal/Abdominal: normal bowel sounds, non tender, soft, no organomegaly Back Exam: normal inspection, no CVA tenderness, no vertebral tenderness Extremity: normal range of motion, normal inspection Neurologic: alert, normal mood/affect Skin Exam: normal color, warm/dry Lymphatic: no adenopathy Progress - Progress Progress: 09/21/17 15:58 FEELS BETTER, SLEEPING, NO VOMITING Departure - Departure Clinical Impression: Vomiting and diarrhea Insomnia Qualifiers: Insomnia type: other insomnia Qualified Code(s): G47.09 - Other insomnia ICD-10 Supporting Text: WITHDRAWAL FROM SEROQUIL Time of Disposition: 16:00 Disposition: Discharge to Home or Self Care Condition: Good Departure Forms: ED Discharge - Pt. Copy, Patient Portal Self Enrollment Instructions: DI for Anxiety -- Adult, DI for Vomiting -- Adult Referrals: Jose Ceballos MD [Primary Care Provider] - 1-2 Weeks Prescriptions: Promethazine Supp [Phenergan Suppository] 25 mg SC Q4HR PRN #14 sup PRN Reason: Vomiting Lorazepam [Ativan] 1 mg PO TID PRN #10 tab PRN Reason: Anxiety Home Medications: Ambulatory Orders Bupropion HCl [Wellbutrin Xl] 150 mg PO DAILY 02/18/16 Simvastatin [Zocor] 20 mg PO DAILY 02/18/16 Amphetamine-Dextroamphetamine [Adderall] 20 mg PO DAILY 10/16/16 Venlafaxine Xr [Effexor XR] 75 mg PO DAILY 10/16/16 Naproxen [Naprosyn] 500 mg PO BID #30 tab 11/09/16 tiZANidine [Zanaflex] 4 mg PO TID PRN #30 tab 11/09/16 Amoxicillin [Amoxil] 1,000 mg PO BID #30 cap 11/23/16 diphenhydrAMINE HCL [Benadryl] 25 mg PO Q6HRS PRN #30 cap 11/23/16 predniSONE 10 mg PO DAILY #7 tab 11/23/16 Desonide 0.05 gm TOP TID #30 gm 12/24/16 predniSONE 20 mg PO DAILY #5 tab 12/24/16 predniSONE 10 mg PO AC #7 tab 01/04/17 Desonide [Desowen] 0.5 ml TOP TID PRN #60 gm 02/01/17 Azithromycin [Zithromax Z-Jatinder] 1 ea PO DAILY #1 pack 03/18/17 Pantoprazole Sodium [Protonix] 20 mg PO BID #60 tab 08/28/17 Sucralfate Suspension [Carafate Suspension] 1 gm PO ACHS #120 ml 08/28/17 Cyclobenzaprine HCl [Flexeril] 10 mg PO BEDTIME #10 tab 09/11/17 Lorazepam [Ativan] 1 mg PO TID PRN #10 tab 09/21/17 Promethazine Supp [Phenergan Suppository] 25 mg SC Q4HR PRN #14 sup 09/21/17
[2017-09-21] MEDS ORDERED: PROMETHAZINE HCL INJ 25 MG/ML VIAL ONE (14:21)
[2017-09-21] MEDS ORDERED: SODIUM CHLORIDE 0.9% 50ML 50 ML ONE (14:21)
[2017-09-21 17:10] VITALS: BP 136/89; O2SAT 94
== END 2017-09-21 16:15 | disposition home or self-care (01) ==
LOC: ER 12:37
DX: G47.09 Other insomnia (principal); R19.7 Diarrhea, unspecified; E78.00 Pure hypercholesterolemia, unspecified; R11.2 Nausea with vomiting, unspecified; Z79.899 Other long term (current) drug therapy; Z87.891 Personal history of nicotine dependence
CPT/HCPCS: 36415; 80053; 85025; A4216; J2550; J7030

== ENCOUNTER 2017-09-26 14:00 | Emergency (ER) | payer MEDICARE, OTHER ==
[2017-09-26] MEDS ORDERED: SODIUM CHLORIDE 0.9% 1000ML 1,000 ML IVS ONE (14:17)
[2017-09-26] MEDS ORDERED: ONDANSETRON ODT 8 MG TAB SL ONE (14:17)
[2017-09-26 14:18] VITALS: TEMP 97.1
[2017-09-26 15:00] VITALS: O2SAT 97
--- NOTE | 2017-09-26 15:22 | RAD ---
PROCEDURE: Abdomen Series Clinical History: nvd 3d Indication: Nausea and vomiting Comparison: 08/28/2017 Technique: Two views of the abdomen and pelvis and single view of the chest were done. Findings: There is no gross evidence of free air in the abdomen or the pelvis . The small and large bowel gas pattern does not show any evidence of obstruction, ileus or bowel wall thickening. There is no visualization of radiopaque calculi in the outline of the urinary tract. There is no significant constipation There is presence of right shoulder arthroplasty and prior surgery in the visualized cervical spine. There are no discrete airspace infiltrates, pleural effusions or pneumothoraces. The cardiomediastinal silhouette is unremarkable. Impression: Unremarkable chest, abdomen and pelvis Location of Interpretation: [id number] Electronically signed by: Maxi Condon MD 09/26/2017 3:20 PM CDT Workstation: [id number]
[2017-09-26] MEDS ORDERED: PROMETHAZINE HCL 25 MG TAB PO ONE (15:27)
--- NOTE | 2017-09-26 15:42 | ED.PDOC ---
History of Present Illness - General Chief Complaint: GI Problem Stated Complaint: diarrhea Time Seen by Provider: 09/26/17 14:11 Source: patient Exam Limitations: no limitations - History of Present Illness Initial Comments: the patient is a 52-year-old male presenting to the emergency room secondary to 3-4 days of nausea and vomiting and diarrhea. The patient has recently just gone off of Seroquel. He also reports that he did not tolerate gentle sedation for shoulder surgery very well. No fevers. No blood in the stool or vomitus. No bile. No point abdominal pain. He actually looks fairly well hydrated. He does have a history of abusing prescription medications. Timing/Duration: unsure Severity: moderate Improving Factors: nothing Worsening Factors: nothing Associated Symptoms: malaise, nausea/vomiting Allergies/Adverse Reactions: Allergies Sulfa Antibiotics Adverse Reaction (Verified 08/28/17 20:49) Home Medications: Ambulatory Orders Bupropion HCl [Wellbutrin Xl] 150 mg PO DAILY 02/18/16 Simvastatin [Zocor] 20 mg PO DAILY 02/18/16 Amphetamine-Dextroamphetamine [Adderall] 20 mg PO DAILY 10/16/16 Venlafaxine Xr [Effexor XR] 75 mg PO DAILY 10/16/16 Naproxen [Naprosyn] 500 mg PO BID #30 tab 11/09/16 tiZANidine [Zanaflex] 4 mg PO TID PRN #30 tab 11/09/16 Amoxicillin [Amoxil] 1,000 mg PO BID #30 cap 11/23/16 diphenhydrAMINE HCL [Benadryl] 25 mg PO Q6HRS PRN #30 cap 11/23/16 predniSONE 10 mg PO DAILY #7 tab 11/23/16 Desonide 0.05 gm TOP TID #30 gm 12/24/16 predniSONE 20 mg PO DAILY #5 tab 12/24/16 predniSONE 10 mg PO AC #7 tab 01/04/17 Desonide [Desowen] 0.5 ml TOP TID PRN #60 gm 02/01/17 Azithromycin [Zithromax Z-Jatinder] 1 ea PO DAILY #1 pack 03/18/17 Pantoprazole Sodium [Protonix] 20 mg PO BID #60 tab 08/28/17 Sucralfate Suspension [Carafate Suspension] 1 gm PO ACHS #120 ml 08/28/17 Cyclobenzaprine HCl [Flexeril] 10 mg PO BEDTIME #10 tab 09/11/17 Lorazepam [Ativan] 1 mg PO TID PRN #10 tab 09/21/17 Promethazine Supp [Phenergan Suppository] 25 mg [place] Q4HR PRN #14 sup 09/21/17 Promethazine HCl 25 mg PO Q6H PRN #10 tab 09/26/17 Review of Systems - Review of Systems Constitutional: States: malaise EENTM: States: no symptoms reported Respiratory: States: no symptoms reported Cardiology: States: no symptoms reported Gastrointestinal/Abdominal: States: diarrhea, nausea, vomiting Genitourinary: States: no symptoms reported Musculoskeletal: States: no symptoms reported Skin: States: no symptoms reported Neurological: States: no symptoms reported - nsomnia Endocrine: States: no symptoms reported All other Systems: No Change from Baseline Past Medical History (General) - Patient Medical History Hx Seizures: No Hx Stroke: No Hx Dementia: No Hx Asthma: No Hx of COPD: No Hx Cardiac Disorders: No Hx Congestive Heart Failure: No Hx Pacemaker: No Hx Hypertension: No Hx Thyroid Disease: No Hx Diabetes: No Hx Gastroesophageal Reflux: No Hx Renal Disease: No Hx Cancer: No Hx of HIV: No Hx Hepatitis C: No Hx MRSA: No MRSA Source:: Wound - Vaccination History Hx Tetanus, Diphtheria Vaccination: Yes Hx Influenza Vaccination: No Hx Pneumococcal Vaccination: No - Social History Hx Tobacco Use: Yes Hx Chewing Tobacco Use: No Hx Alcohol Use: Yes - social Hx Substance Use: No Hx Substance Use Treatment: No Hx Depression: No Hx Physical Abuse: No Hx Emotional Abuse: No Hx Suspected Abuse: No - Female History Patient : No Family Medical History - Family History Father Family History: Unknown Living Status: Unknown Hx Family Hypertension: Yes Physical Exam - Physical Exam General Appearance: Alert, Comfortable, No apparent distress Eye Exam: bilateral normal Ears, Nose, Throat: hearing grossly normal, normal ENT inspection, normal pharynx Neck: full range of motion, supple Respiratory: chest non-tender, lungs clear, normal breath sounds, no respiratory distress, no accessory muscle use Cardiovascular/Chest: normal peripheral pulses, regular rate, rhythm, no edema Peripheral Pulses: radial,right: 2+, radial,left: 2+, dorsalis pedis,right: 2+, dorsalis pedis,left: 2+ Gastrointestinal/Abdominal: non tender, soft Rectal Exam: deferred Back Exam: normal inspection, no CVA tenderness, no vertebral tenderness Extremity: normal range of motion, non-tender, normal inspection, no pedal edema , normal capillary refill 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 This is either a viral gastroenteritis that has been going around town or withdrawal from the Seroquel which he has abruptly discontinued. He has received a liter of IV fluids here. Lab work and x-rays look reassuring. He needs to mainly maintain a liquid diet at this point. He will be written for Phenergan for when necessary use. ER warnings were given for significant worsening. He should follow-up with his primary care doctor around Thursday otherwise. One or 2 tablets of Imodium once or twice a day can be used to help control diarrhea as well. - Results/Orders Results/Orders: Laboratory Tests 09/26/17 09/26/17 09/26/17 14:40 14:40 14:56 WBC 8.1 RBC 4.79 Hgb 14.2 Hct 41.8 L MCV 87.3 MCH 29.7 MCHC 34.0 RDW 15.5 H Plt Count 348 MPV 8.0 Absolute Neuts (auto) 4.70 Absolute Lymphs (auto) 2.60 Absolute Monos (auto) 0.70 Absolute Eos (auto) 0.10 Absolute Basos (auto) 0.10 Neutrophils % 58.7 Lymphocytes % 31.6 Monocytes % 8.1 Eosinophils % 0.9 L Basophils % 0.7 Sodium 136 Potassium 3.6 Chloride 104 Carbon Dioxide 23 Anion Gap 12.6 BUN 14 Creatinine 0.83 BUN/Creatinine Ratio 16.9 Random Glucose 133 H Serum Osmolality 274.3 L Calcium 10.1 Magnesium 2.2 Total Bilirubin 0.7 AST 25 ALT 33 Alkaline Phosphatase 92 Creatine Kinase 282 H* CK-MB (CK-2) 2.0 CK-MB (CK-2) % Not Reportable Troponin I < 0.02 Serum Total Protein 8.1 Albumin 5.0 Globulin 3.1 Albumin/Globulin Ratio 1.6 Amylase 56 Lipase 41 Urine Color Yellow Urine Appearance Clear Urine pH 6.0 Ur Specific [place] 1.025 Urine Protein Trace Urine Glucose (UA) Negative Urine Ketones Negative Urine Blood Trace-intact H Urine Nitrite Negative Urine Bilirubin Negative Urine Urobilinogen 0.2 Ur Leukocyte Esterase Negative Urine RBC 0-1 Urine WBC 0 Ur Epithelial Cells 0-1 Urine Bacteria 0 acute abdominal series shows no evidence of any acute pathology. No obstruction. No free air. No pneumonia. Departure - Departure Clinical Impression: Gastroenteritis, Dehydration Disposition: Discharge to Home or Self Care Condition: Fair Departure Forms: ED Discharge - Pt. Copy, Patient Portal Self Enrollment Instructions: DI for Diarrhea and Traveler's Diarrhea -- Adult Diet: bland diet Activity: increase activity as tolerated Referrals: Jose Ceballos MD [Primary Care Provider] - 1-5 Days Prescriptions: Promethazine HCl 25 mg PO Q6H PRN #10 tab PRN Reason: Vomiting Home Medications: Ambulatory Orders Bupropion HCl [Wellbutrin Xl] 150 mg PO DAILY 02/18/16 Simvastatin [Zocor] 20 mg PO DAILY 02/18/16 Amphetamine-Dextroamphetamine [Adderall] 20 mg PO DAILY 10/16/16 Venlafaxine Xr [Effexor XR] 75 mg PO DAILY 10/16/16 Naproxen [Naprosyn] 500 mg PO BID #30 tab 11/09/16 tiZANidine [Zanaflex] 4 mg PO TID PRN #30 tab 11/09/16 Amoxicillin [Amoxil] 1,000 mg PO BID #30 cap 11/23/16 diphenhydrAMINE HCL [Benadryl] 25 mg PO Q6HRS PRN #30 cap 11/23/16 predniSONE 10 mg PO DAILY #7 tab 11/23/16 Desonide 0.05 gm TOP TID #30 gm 12/24/16 predniSONE 20 mg PO DAILY #5 tab 12/24/16 predniSONE 10 mg PO AC #7 tab 01/04/17 Desonide [Desowen] 0.5 ml TOP TID PRN #60 gm 02/01/17 Azithromycin [Zithromax Z-Jatinder] 1 ea PO DAILY #1 pack 03/18/17 Pantoprazole Sodium [Protonix] 20 mg PO BID #60 tab 08/28/17 Sucralfate Suspension [Carafate Suspension] 1 gm PO ACHS #120 ml 08/28/17 Cyclobenzaprine HCl [Flexeril] 10 mg PO BEDTIME #10 tab 09/11/17 Lorazepam [Ativan] 1 mg PO TID PRN #10 tab 09/21/17 Promethazine Supp [Phenergan Suppository] 25 mg [place] Q4HR PRN #14 sup 09/21/17 Promethazine HCl 25 mg PO Q6H PRN #10 tab 09/26/17 Additional Instructions: the patient's 52-year-old male presenting to the emergency room secondary to nausea vomiting and diarrhea for the last 3 days or so. This is either a viral gastroenteritis that has been going around town or withdrawal from the Seroquel which he has abruptly discontinued. He has received a liter of IV fluids here. Lab work and x-rays look reassuring. He needs to mainly maintain a liquid diet at this point. He will be written for Phenergan for when necessary use. ER warnings were given for significant worsening. He should follow-up with his primary care doctor around Thursday otherwise. One or 2 tablets of Imodium once or twice a day can be used to help control diarrhea as well.
[2017-09-26 16:22] VITALS: BP 126/74
== END 2017-09-26 16:00 | disposition home or self-care (01) ==
LOC: ER 14:00
DX: K52.9 Noninfective gastroenteritis and colitis, unspecified (principal); E86.0 Dehydration; Z87.891 Personal history of nicotine dependence; Z79.899 Other long term (current) drug therapy
CPT/HCPCS: 36415; 74019; 80053; 81001; 82150; 82550; 82553; 83690; 83735; 84484; 85025; J7030; Q0169

== ENCOUNTER 2017-11-14 20:08 | Emergency (ER) | payer MEDICARE, OTHER ==
[2017-11-14 20:21] VITALS: BP 128/98; TEMP 98.1; O2SAT 94
[2017-11-14] MEDS ORDERED: TEMAZEPAM 15 MG CAP PO ONE (20:27)
[2017-11-14] MEDS ORDERED: PROMETHAZINE HCL 25 MG TAB PO ONE (20:27)
[2017-11-14] MEDS ORDERED: KETOROLAC TROMETHAMINE INJ 30 MG/ML VIAL IM ONE (20:27)
[2017-11-14] MEDS ORDERED: predniSONE 20 MG TAB PO ONE (20:27)
[2017-11-14] MEDS ORDERED: HYDROcodone 10MG/APAP 325MG 1 EA TAB PO ONE (20:27)
--- NOTE | 2017-11-14 20:30 | ED.PDOC ---
History of Present Illness - General Chief Complaint: Headache Stated Complaint: Headache Time Seen by Provider: 11/14/17 20:09 Source: patient Exam Limitations: no limitations - History of Present Illness Initial Comments: the patient is a 52-year-old male emergency room due to a significant headache has been present for the last 24-36 hours. The patient has some palpable posterior cervical chain lymphadenopathy bilaterally giving him some soreness in the neck on each side but not down the center. No nuchal rigidity or meningeal signs. No altered mental status. No fever. No vision taste or smell changes. He feels an increased pressure in his ears. He feels a tight band sensation around his head. No point tenderness. Mild nausea but no vomiting. 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 Last headache was more than 45 months ago. The patient is tolerating oral intake well. He has had a history of some sphenoid sinusitis in the past.e has additionally had poor sleep for the last 3 nights.he has had some disequilibrium with the headache but no true vertigo. Timing/Duration: 24 hours Severity: moderate Improving Factors: nothing Worsening Factors: nothing Associated Symptoms: headaches Allergies/Adverse Reactions: Allergies Sulfa Antibiotics Adverse Reaction (Verified 08/28/17 20:49) Home Medications: Ambulatory Orders Bupropion HCl [Wellbutrin Xl] 150 mg PO DAILY 02/18/16 Simvastatin [Zocor] 20 mg PO DAILY 02/18/16 Amphetamine-Dextroamphetamine [Adderall] 20 mg PO DAILY PRN 10/16/16 Venlafaxine Xr [Effexor XR] 75 mg PO DAILY 10/16/16 Pantoprazole Sodium [Protonix] 20 mg PO BID #60 tab 08/28/17 Amoxicillin & Pot Clavulanate [Augmentin Tab] 875 mg PO BID #14 tab 11/14/17 Review of Systems - Review of Systems Constitutional: States: no symptoms reported EENTM: States: ear pain - ncrease pressure bilaterally, nose congestion Respiratory: States: no symptoms reported Cardiology: States: no symptoms reported Gastrointestinal/Abdominal: States: nausea Genitourinary: States: no symptoms reported Musculoskeletal: States: neck pain - see above Skin: States: no symptoms reported Neurological: States: headache Endocrine: States: no symptoms reported All other Systems: No Change from Baseline Past Medical History (General) - Patient Medical History Hx Seizures: No Hx Stroke: No Hx Dementia: No Hx Asthma: No Hx of COPD: No Hx Cardiac Disorders: Yes - hypercholesterolemia Hx Congestive Heart Failure: No Hx Pacemaker: No Hx Hypertension: No Hx Thyroid Disease: No Hx Diabetes: No Hx Gastroesophageal Reflux: No Hx Renal Disease: No Hx Cancer: No Hx of HIV: No Hx Hepatitis C: No Hx MRSA: No MRSA Source:: Wound Surgical History: tonsillectomy, other - Vaccination History Hx Tetanus, Diphtheria Vaccination: Yes Hx Influenza Vaccination: Yes - 2017 Hx Pneumococcal Vaccination: No - Social History Hx Tobacco Use: Yes Hx Chewing Tobacco Use: No Hx Alcohol Use: Yes - social Hx Substance Use: No Hx Substance Use Treatment: No Hx Depression: No Hx Physical Abuse: No Hx Emotional Abuse: No Hx Suspected Abuse: No - Female History Patient : No Family Medical History - Family History Father Family History: Unknown Living Status: Unknown Hx Family Hypertension: Yes Physical Exam - Physical Exam General Appearance: Alert, Other - he is uncomfortable and prefers the lights off Eye Exam: bilateral normal Ears, Nose, Throat: hearing grossly normal, normal pharynx, nasal congestion, other - bilateral tympanic membranes show increased pressure Neck: other - the patient does havesignificant posterior cervical lymphadenopathy giving some tenderness bilaterally Respiratory: lungs clear, normal breath sounds, no respiratory distress, no accessory muscle use Cardiovascular/Chest: normal peripheral pulses, regular rate, rhythm, no edema Peripheral Pulses: radial,right: 2+, radial,left: 2+, dorsalis pedis,right: 2+, dorsalis pedis,left: 2+ Gastrointestinal/Abdominal: non tender, soft Rectal Exam: deferred Back Exam: normal inspection, no CVA tenderness Extremity: normal range of motion, non-tender, normal inspection, no pedal edema 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 He does have a history of recurrent headaches that seem to have started after his traumatic brain injury. He does have some posterior cervical lymphadenopathy that is likely contributing to tension headaches. Source of the lymphadenopathy is uncertain however the patient does have a history of sphenoid sinusitis in the past and will thus be placed on Augmentin twice daily for the next 7 days. The patient needs to keep himself very well hydrated for the next couple of days. He is being dosed here tonight with a pain pill, a sleeping pill, Phenergan and a dose of prednisone to help reduce inflammation in the posterior cervical chains. He should follow up with his primary care doctor Thursday if the headache is persisting. the patient did have a head CT here around a year and a half ago that was essentially normal otherwise which is reassuring. Again he needs to keep himself very well hydrated. ER warnings were given. Departure - Departure Clinical Impression: Tension type headache Qualifiers: Headache chronicity pattern: acute headache Disposition: Discharge to Home or Self Care Condition: Fair Departure Forms: ED Discharge - Pt. Copy, Patient Portal Self Enrollment Diet: regular diet Activity: increase activity as tolerated Referrals: Jose Ceballos MD [Primary Care Provider] - 1-5 Days Prescriptions: Amoxicillin & Pot Clavulanate [Augmentin Tab] 875 mg PO BID #14 tab Home Medications: Ambulatory Orders Bupropion HCl [Wellbutrin Xl] 150 mg PO DAILY 02/18/16 Simvastatin [Zocor] 20 mg PO DAILY 02/18/16 Amphetamine-Dextroamphetamine [Adderall] 20 mg PO DAILY PRN 10/16/16 Venlafaxine Xr [Effexor XR] 75 mg PO DAILY 10/16/16 Pantoprazole Sodium [Protonix] 20 mg PO BID #60 tab 08/28/17 Amoxicillin & Pot Clavulanate [Augmentin Tab] 875 mg PO BID #14 tab 11/14/17 Additional Instructions: the patient a 52-year-old male presenting with a headache of one to 2 days' duration. He does have a history of recurrent headaches that seem to have started after his traumatic brain injury. He does have some posterior cervical lymphadenopathy that is likely contributing to tension headaches. Source of the lymphadenopathy is uncertain however the patient does have a history of sphenoid sinusitis in the past and will thus be placed on Augmentin twice daily for the next 7 days. The patient needs to keep himself very well hydrated for the next couple of days. He is being dosed here tonight with a pain pill, a sleeping pill, Phenergan and a dose of prednisone to help reduce inflammation in the posterior cervical chains. He should follow up with his primary care doctor Thursday if the headache is persisting. the patient did have a head CT here around a year and a half ago that was essentially normal otherwise which is reassuring. Again he needs to keep himself very well hydrated. ER warnings were given.
== END 2017-11-14 20:45 | disposition home or self-care (01) ==
LOC: ER 20:08
DX: G44.209 Tension-type headache, unspecified, not intractable (principal); E78.00 Pure hypercholesterolemia, unspecified; Z79.899 Other long term (current) drug therapy; Z87.820 Personal history of traumatic brain injury
CPT/HCPCS: J1885; J7512; Q0169

== ENCOUNTER 2017-11-30 12:31 | Emergency (ER) | payer MEDICARE, OTHER ==
[2017-11-30 12:53] VITALS: BP 107/70; TEMP 97.8; O2SAT 95
--- NOTE | 2017-11-30 12:53 | ED.PDOC ---
History of Present Illness - General Chief Complaint: Skin/Abrasion/Tear Stated Complaint: spider bite Time Seen by Provider: 11/30/17 12:34 Source: patient Exam Limitations: no limitations - History of Present Illness Initial Comments: the patient is a 52-year-old male presenting to the emergency room secondary to an insect bite to his upper inner thigh on the right side. This has been present for 1-2 days. There is some mild blistering and scabbing in the area. There is a ring of erythema surrounding it. There is no evidence of any abscess formation at this time. No katarina pus drainage. He does not know what kind of insect bit him. No other areas like this on his body. Timing/Duration: unsure Severity: mild Improving Factors: nothing Worsening Factors: nothing Associated Symptoms: denies symptoms Allergies/Adverse Reactions: Allergies Sulfa Antibiotics Adverse Reaction (Verified 08/28/17 20:49) Home Medications: Ambulatory Orders Bupropion HCl [Wellbutrin Xl] 150 mg PO DAILY 02/18/16 Simvastatin [Zocor] 20 mg PO DAILY 02/18/16 Amphetamine-Dextroamphetamine [Adderall] 20 mg PO DAILY PRN 10/16/16 Venlafaxine Xr [Effexor XR] 75 mg PO DAILY 10/16/16 Pantoprazole Sodium [Protonix] 20 mg PO BID #60 tab 08/28/17 Amoxicillin & Pot Clavulanate [Augmentin Tab] 875 mg PO BID #14 tab 11/14/17 Doxycycline (Monohydrate) [Doxycycline Monohydrate] 100 mg PO BID #14 cap Review of Systems - Review of Systems Constitutional: States: no symptoms reported EENTM: States: no symptoms reported Respiratory: States: no symptoms reported Cardiology: States: no symptoms reported Gastrointestinal/Abdominal: States: no symptoms reported Genitourinary: States: no symptoms reported Musculoskeletal: States: no symptoms reported Skin: States: see HPI Neurological: States: no symptoms reported Endocrine: States: no symptoms reported All other Systems: No Change from Baseline Past Medical History (General) - Patient Medical History Hx Seizures: No Hx Stroke: No Hx Dementia: No Hx Asthma: No Hx of COPD: No Hx Cardiac Disorders: Yes - hypercholesterolemia Hx Congestive Heart Failure: No Hx Pacemaker: No Hx Hypertension: No Hx Thyroid Disease: No Hx Diabetes: No Hx Gastroesophageal Reflux: No Hx Renal Disease: No Hx Cancer: No Hx of HIV: No Hx Hepatitis C: No Hx MRSA: No MRSA Source:: Wound - Vaccination History Hx Tetanus, Diphtheria Vaccination: Yes Hx Influenza Vaccination: Yes - 2017 Hx Pneumococcal Vaccination: No - Social History Hx Tobacco Use: Yes Hx Chewing Tobacco Use: No Hx Alcohol Use: Yes - social Hx Substance Use: No Hx Substance Use Treatment: No Hx Depression: No Hx Physical Abuse: No Hx Emotional Abuse: No Hx Suspected Abuse: No - Female History Patient : No Family Medical History - Family History Father Family History: Unknown Living Status: Unknown Hx Family Hypertension: Yes Physical Exam - Physical Exam General Appearance: Alert, Comfortable, No apparent distress Eye Exam: bilateral normal Ears, Nose, Throat: hearing grossly normal Neck: full range of motion Respiratory: no respiratory distress, no accessory muscle use Cardiovascular/Chest: normal peripheral pulses, no edema Peripheral Pulses: dorsalis pedis,right: 2+, dorsalis pedis,left: 2+, posterior tibialis,right: 2+, posterior tibialis,left: 2+ Rectal Exam: deferred Extremity: normal range of motion, non-tender, no pedal edema, no calf tenderness, normal capillary refill 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 The central area of blistering is approximately 1.5 cm in diameter. The surrounding ring of erythema is approximately 3 inches in diameter. Progress - Progress Progress: 11/30/17 12:51 the patient's a 52-year-old male presenting to the emergency room secondary to an insect bite to his right upper inner thigh. The patient will be placed on doxycycline primarily for infection prophylaxis. He does need to trace out the erythema and also take a picture of the wound daily to make sure that is not changing significantly for the negative. if this did come from a brown recluse he may expect some sloughing of the central tissue over the next couple of weeks. He does need to keep the area covered with some antibiotic ointment and Band-Aid. ER warnings were given for any significant worsening. Departure - Departure Clinical Impression: Insect bites Qualifiers: Encounter type: initial encounter Qualified Code(s): W57.XXXA - Bitten or stung by nonvenomous insect and other nonvenomous arthropods, initial encounter Disposition: Discharge to Home or Self Care Condition: Fair Departure Forms: ED Discharge - Pt. Copy, Patient Portal Self Enrollment Instructions: DI for Wound Infection Diet: regular diet Activity: increase activity as tolerated Referrals: Jose Ceballos MD [Primary Care Provider] - 1-2 Weeks Prescriptions: Doxycycline (Monohydrate) [Doxycycline Monohydrate] 100 mg PO BID #14 cap Home Medications: Ambulatory Orders Bupropion HCl [Wellbutrin Xl] 150 mg PO DAILY 02/18/16 Simvastatin [Zocor] 20 mg PO DAILY 02/18/16 Amphetamine-Dextroamphetamine [Adderall] 20 mg PO DAILY PRN 10/16/16 Venlafaxine Xr [Effexor XR] 75 mg PO DAILY 10/16/16 Pantoprazole Sodium [Protonix] 20 mg PO BID #60 tab 08/28/17 Amoxicillin & Pot Clavulanate [Augmentin Tab] 875 mg PO BID #14 tab 11/14/17 Doxycycline (Monohydrate) [Doxycycline Monohydrate] 100 mg PO BID #14 cap Additional Instructions: the patient's a 52-year-old male presenting to the emergency room secondary to an insect bite to his right upper inner thigh. The patient will be placed on doxycycline primarily for infection prophylaxis. He does need to trace out the erythema and also take a picture of the wound daily to make sure that is not changing significantly for the negative. if this did come from a brown recluse he may expect some sloughing of the central tissue over the next couple of weeks. He does need to keep the area covered with some antibiotic ointment and Band-Aid. ER warnings were given for any significant worsening.
== END 2017-11-30 13:08 | disposition home or self-care (01) ==
LOC: ER 12:31
DX: S70.361A Insect bite (nonvenomous), right thigh, initial encounter (principal); E78.00 Pure hypercholesterolemia, unspecified; Z79.899 Other long term (current) drug therapy; Z87.891 Personal history of nicotine dependence; W57.XXXA Bitten or stung by nonvenomous insect and other nonvenomous arthropods, initial encounter; Y92.9 Unspecified place or not applicable

== ENCOUNTER 2017-12-11 19:27 | Emergency (ER) | payer MEDICARE, OTHER ==
--- NOTE | 2017-12-11 20:03 | ED.PDOC ---
History of Present Illness - General Chief Complaint: Upper Extremity Injury Stated Complaint: Left wrist pain Time Seen by Provider: 12/11/17 20:00 Source: patient, family Exam Limitations: no limitations - History of Present Illness Occurred: just prior to arrival Pain - Upper Extremity: moderate: Forearm, left Method of Injury: other - bull crush injury Improving Factors: rest Worsening Factors: movement Allergies/Adverse Reactions: Allergies Sulfa Antibiotics Adverse Reaction (Verified 11/30/17 12:53) Home Medications: Ambulatory Orders Bupropion HCl [Wellbutrin Xl] 150 mg PO DAILY 02/18/16 Simvastatin [Zocor] 20 mg PO DAILY 02/18/16 Amphetamine-Dextroamphetamine [Adderall] 20 mg PO DAILY PRN 10/16/16 Venlafaxine Xr [Effexor XR] 75 mg PO DAILY 10/16/16 Pantoprazole Sodium [Protonix] 20 mg PO BID #60 tab 08/28/17 Amoxicillin & Pot Clavulanate [Augmentin Tab] 875 mg PO BID #14 tab 11/14/17 Doxycycline (Monohydrate) [Doxycycline Monohydrate] 100 mg PO BID #14 cap Review of Systems - Review of Systems Constitutional: States: no symptoms reported Respiratory: States: no symptoms reported Cardiology: States: no symptoms reported Gastrointestinal/Abdominal: States: no symptoms reported Genitourinary: States: no symptoms reported Musculoskeletal: States: joint pain, muscle pain Skin: States: change in color Neurological: States: no symptoms reported Past Medical History (General) - Patient Medical History Hx Seizures: No Hx Stroke: No Hx Dementia: No Hx Asthma: No Hx of COPD: No Hx Cardiac Disorders: Yes - hypercholesterolemia Hx Congestive Heart Failure: No Hx Pacemaker: No Hx Hypertension: No Hx Thyroid Disease: No Hx Diabetes: No Hx Gastroesophageal Reflux: No Hx Renal Disease: No Hx Cancer: No Hx of HIV: No Hx Hepatitis C: No Hx MRSA: No MRSA Source:: Wound - Vaccination History Hx Tetanus, Diphtheria Vaccination: Yes Hx Influenza Vaccination: Yes - 2017 Hx Pneumococcal Vaccination: No - Social History Hx Tobacco Use: Yes Hx Chewing Tobacco Use: No Hx Alcohol Use: Yes - social Hx Substance Use: No Hx Substance Use Treatment: No Hx Depression: No Hx Physical Abuse: No Hx Emotional Abuse: No Hx Suspected Abuse: No - Female History Patient : No Family Medical History - Family History Father Family History: Unknown Living Status: Unknown Hx Family Hypertension: Yes Physical Exam - Physical Exam General Appearance: Alert, Comfortable Eyes, Ears, Nose, Throat Exam: PERRL/EOMI, normal ENT inspection Neck: non-tender, full range of motion Cardiovascular/Respiratory: regular rate, rhythm, no M/R/G Abdominal Exam: non-tender Shoulder Exam: normal inspection Elbow/Forearm Exam: normal ROM, pain, soft tissue tenderness, swelling Wrist Exam: normal ROM, pain, soft tissue tenderness, swelling Hand Exam: normal inspection, non-tender, no evidence of injury Neuro/Tendon: normal sensation, normal motor functions, normal tendon functions , responds to pain, no evidence tendon injury Mental Status: alert Skin Exam: other - bruising Progress - Progress Progress: 12/11/17 20:37 forearm xray negative for acute fracture Departure - Departure Clinical Impression: Crush accident Contusion Qualifiers: Encounter type: initial encounter Contusion area: forearm Laterality: left Qualified Code(s): S50.12XA - Contusion of left forearm, initial encounter Forearm contusion Qualifiers: Encounter type: initial encounter Laterality: left Qualified Code(s): S50.12XA - Contusion of left forearm, initial encounter Time of Disposition: 20:39 Disposition: Discharge to Home or Self Care Condition: Good Departure Forms: ED Discharge - Pt. Copy, Patient Portal Self Enrollment Instructions: DI for Arm Pain, DI for Forearm Muscle Strain Diet: resume usual diet Activity: increase activity as tolerated Referrals: Jose Ceballos MD [Primary Care Provider] - 1-2 Weeks Home Medications: Ambulatory Orders Bupropion HCl [Wellbutrin Xl] 150 mg PO DAILY 02/18/16 Simvastatin [Zocor] 20 mg PO DAILY 02/18/16 Amphetamine-Dextroamphetamine [Adderall] 20 mg PO DAILY PRN 10/16/16 Venlafaxine Xr [Effexor XR] 75 mg PO DAILY 10/16/16 Pantoprazole Sodium [Protonix] 20 mg PO BID #60 tab 08/28/17 Amoxicillin & Pot Clavulanate [Augmentin Tab] 875 mg PO BID #14 tab 11/14/17 Doxycycline (Monohydrate) [Doxycycline Monohydrate] 100 mg PO BID #14 cap
[2017-12-11 20:16] VITALS: O2SAT 98
--- NOTE | 2017-12-11 20:30 | RAD ---
EXAM DESCRIPTION: Forearm,Left CLINICAL HISTORY: 52 years Male Left wrist pain and swelling COMPARISON: None. TECHNIQUE: LEFT forearm, two views FINDINGS: No acute fractures or dislocations are identified. No osseous destructive lesions. Small spur along the proximal ulna on the volar surface which may reflect a small osteochondroma. IMPRESSION: No acute fracture is identified. Electronically signed by: Nasima Wade MD 12/11/2017 8:29 PM CDT
[2017-12-11] MEDS ORDERED: MORPHINE SULFATE INJ 10 MG/ML VIAL IM ONE (20:44)
[2017-12-11 21:05] VITALS: BP 137/64; TEMP 97.8
== END 2017-12-11 21:05 | disposition home or self-care (01) ==
LOC: ER 19:27
DX: S50.12XA Contusion of left forearm, initial encounter (principal); E78.00 Pure hypercholesterolemia, unspecified; Z87.891 Personal history of nicotine dependence; W55.29XA Other contact with cow, initial encounter; Y92.9 Unspecified place or not applicable
CPT/HCPCS: 73090; J2270

== ENCOUNTER 2018-03-01 14:54 | Emergency (ER) | payer MEDICARE, OTHER ==
[2018-03-01 15:06] VITALS: TEMP 97.4
[2018-03-01] MEDS ORDERED: VENLAFAXINE XR 75 MG CAP ONE (15:20)
[2018-03-01] MEDS ORDERED: VENLAFAXINE HCL TAB 75 MG TAB PO ONE (15:27)
[2018-03-01] MEDS ORDERED: VENLAFAXINE XR 75 MG CAP PO ONE (15:30)
--- NOTE | 2018-03-01 15:55 | RAD ---
EXAM DESCRIPTION: Chest,1 View CLINICAL HISTORY: 52 years Male, atypical chest pain COMPARISON: Previous study August 27, 2017 TECHNIQUE: AP portable chest. FINDINGS: Heart size is normal with normal pulmonary vascularity. Linear perihilar densities may be discoid atelectasis. The film is taken in partial expiration. No pulmonary mass or worrisome nodule. No pneumothorax or pleural effusion. Right humeral head prosthesis is present. IMPRESSION: No acute process is identified in the chest. Electronically signed by: Fred Alanis MD 03/01/2018 3:53 PM CDT
--- NOTE | 2018-03-01 16:18 | ED.PDOC ---
History of Present Illness - General Chief Complaint: Chest Pain/MN Time Seen by Provider: 03/01/18 14:55 Source: patient Exam Limitations: no limitations - History of Present Illness Initial Comments: the patient is a 52-year-old male presenting to the emergency room secondary to a feeling of generalized achiness with overall body aches. No real palpitations and no focal chest pain. He does have some anxiety issues and has had a couple of cats before but no definitive heart attacks. No fever. No confusion. He is moderately anxious. The patient did run out of his Effexor that he takes at a high dose 2 days ago as it [facility]. He has been on the medication quite a long time. Symptoms started early this morning and have been persistent since. Timing/Duration: unsure, 24 hours Severity: mild Improving Factors: nothing Worsening Factors: nothing Associated Symptoms: other Allergies/Adverse Reactions: Allergies Sulfa Antibiotics Adverse Reaction (Verified 11/30/17 12:53) Home Medications: Ambulatory Orders Bupropion HCl [Wellbutrin Xl] 150 mg PO DAILY 02/18/16 Simvastatin [Zocor] 20 mg PO DAILY 02/18/16 Amphetamine-Dextroamphetamine [Adderall] 20 mg PO DAILY PRN 10/16/16 Venlafaxine Xr [Effexor XR] 75 mg PO DAILY 10/16/16 Pantoprazole Sodium [Protonix] 20 mg PO BID #60 tab 08/28/17 Amoxicillin & Pot Clavulanate [Augmentin Tab] 875 mg PO BID #14 tab 11/14/17 Doxycycline (Monohydrate) [Doxycycline Monohydrate] 100 mg PO BID #14 cap Review of Systems - Review of Systems Constitutional: States: malaise EENTM: States: no symptoms reported Respiratory: States: no symptoms reported Cardiology: States: see HPI Gastrointestinal/Abdominal: States: see HPI Genitourinary: States: no symptoms reported Musculoskeletal: States: back pain, muscle pain, muscle stiffness Skin: States: no symptoms reported Neurological: States: anxiety, headache Endocrine: States: no symptoms reported All other Systems: No Change from Baseline Past Medical History (General) - Patient Medical History Hx Seizures: No Hx Stroke: No Hx Dementia: No Hx Asthma: No Hx of COPD: No Hx Cardiac Disorders: Yes - hypercholesterolemia Hx Congestive Heart Failure: No Hx Pacemaker: No Hx Hypertension: No Hx Thyroid Disease: No Hx Diabetes: No Hx Gastroesophageal Reflux: No Hx Renal Disease: No Hx Cancer: No Hx of HIV: No Hx Hepatitis C: No Hx MRSA: No MRSA Source:: Wound - Vaccination History Hx Tetanus, Diphtheria Vaccination: Yes Hx Influenza Vaccination: No Hx Pneumococcal Vaccination: No Immunizations Up to Date: Yes - Social History Hx Tobacco Use: Yes Hx Chewing Tobacco Use: No Hx Alcohol Use: Yes - social Hx Substance Use: No Hx Substance Use Treatment: No Hx Depression: No Feels Threatened In Home Enviroment: No Feels Threatened In a Relationship: No Hx Physical Abuse: No Hx Emotional Abuse: No Hx Suspected Abuse: No - Activities of Daily Living Hospice Agency (if applicable):: None - Female History Patient is a Female of Child Bearing Age (10 -59 yrs old): No Patient : No Family Medical History - Family History Father Family History: Unknown Living Status: Unknown Hx Family Hypertension: Yes Physical Exam - Physical Exam General Appearance: Alert, No apparent distress Eye Exam: bilateral normal Ears, Nose, Throat: hearing grossly normal, normal ENT inspection Neck: full range of motion, supple Respiratory: chest non-tender, lungs clear, normal breath sounds, no respiratory distress, no accessory muscle use Cardiovascular/Chest: normal peripheral pulses, regular rate, rhythm, no edema Peripheral Pulses: radial,right: 2+, radial,left: 2+, dorsalis pedis,right: 2+, dorsalis pedis,left: 2+ Gastrointestinal/Abdominal: non tender, soft Rectal Exam: deferred Back Exam: normal inspection, no CVA tenderness, no vertebral tenderness Extremity: normal range of motion, non-tender, normal inspection, no pedal edema , normal capillary refill 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 Laboratory work chest x-ray and EKG are reassuring. The patient was given a dose of Effexor here and will be written for 1 month's worth of his medication. An ECG for routine follow-up with his primary care doctor. ER warnings were given for any significant worsening. He does need to keep himself well-hydrated. - Results/Orders Results/Orders: chest x-ray shows no acute pathology. EKG shows normal sinus rhythm at 96 bpm. He does have old Q waves in inferior leads which were seen earlier on his previous EKGs. Normal R-wave progression. Very mild left axis deviation. Possible mild early right bundle branch. Normal QT interval. No acute ST segment changes or T-wave changes immediately concerning for ischemia. Laboratory Tests 03/01/18 03/01/18 03/01/18 15:22 15:22 15:22 WBC 4.8 RBC 4.49 L Hgb 14.3 Hct 41.2 L MCV 91.8 MCH 31.8 H MCHC 34.8 RDW 12.8 Plt Count 280 MPV 8.2 Absolute Neuts (auto) 2.00 Absolute Lymphs (auto) 2.10 Absolute Monos (auto) 0.40 Absolute Eos (auto) 0.20 Absolute Basos (auto) 0.10 Neutrophils % 42.6 Lymphocytes % 44.8 Monocytes % 8.1 Eosinophils % 3.2 Basophils % 1.3 PT 9.6 INR 0.96 PTT (SP) 25.3 Sodium 139 Potassium 3.8 Chloride 103 Carbon Dioxide 27 Anion Gap 12.8 BUN 18 Creatinine 0.97 BUN/Creatinine Ratio 18.6 Random Glucose 124 H Serum Osmolality 280.9 Calcium 9.3 Total Bilirubin 0.7 AST 35 ALT 53 Alkaline Phosphatase 110 Creatine Kinase 331 H* CK-MB (CK-2) 3.0 CK-MB (CK-2) % 0.91 Troponin I < 0.02 B-Natriuretic Peptide < 5.0 Serum Total Protein 7.0 Albumin 4.2 Globulin 2.8 Albumin/Globulin Ratio 1.5 - EKG/XRAY/CT CT Ordered: No CT Interpretation Call Back: No Departure - Departure Clinical Impression: Medication withdrawal Qualifiers: Substance type: sedative, hypnotic or anxiolytic Qualified Code(s): F13.239 - Sedative, hypnotic or anxiolytic dependence with withdrawal, unspecified Disposition: Discharge to Home or Self Care Condition: Fair Departure Forms: ED Discharge - Pt. Copy, Patient Portal Self Enrollment Instructions: Prescription Drug Withdrawal (DC) Diet: regular diet Activity: increase activity as tolerated Referrals: Jose Ceballos MD [Primary Care Provider] - 1-2 Weeks Home Medications: Ambulatory Orders Bupropion HCl [Wellbutrin Xl] 150 mg PO DAILY 02/18/16 Simvastatin [Zocor] 20 mg PO DAILY 02/18/16 Amphetamine-Dextroamphetamine [Adderall] 20 mg PO DAILY PRN 10/16/16 Venlafaxine Xr [Effexor XR] 75 mg PO DAILY 10/16/16 Pantoprazole Sodium [Protonix] 20 mg PO BID #60 tab 08/28/17 Amoxicillin & Pot Clavulanate [Augmentin Tab] 875 mg PO BID #14 tab 11/14/17 Doxycycline (Monohydrate) [Doxycycline Monohydrate] 100 mg PO BID #14 cap Additional Instructions: the patient's 52-year-old male presenting to the emergency room secondary to a syndrome that I think is most likely related to withdrawal symptoms from his Effexor. Laboratory work chest x-ray and EKG are reassuring. The patient was given a dose of Effexor here and will be written for 1 month's worth of his medication. An ECG for routine follow-up with his primary care doctor. ER warnings were given for any significant worsening. He does need to keep himself well-hydrated.
[2018-03-01 16:21] VITALS: BP 139/91; O2SAT 94
[2018-03-01] MEDS ORDERED: ONDANSETRON ODT (ER DISP) 8 MG TAB PO ONE (18:48)
[2018-03-02] MEDS ORDERED: VENLAFAXINE XR 75 MG CAP PO ONE (15:13)
== END 2018-03-01 16:24 | disposition home or self-care (01) ==
LOC: ER 14:54
DX: F19.939 Other psychoactive substance use, unspecified with withdrawal, unspecified (principal); F41.9 Anxiety disorder, unspecified; E78.00 Pure hypercholesterolemia, unspecified; Z79.899 Other long term (current) drug therapy; Z87.891 Personal history of nicotine dependence; Z88.2 Allergy status to sulfonamides

== ENCOUNTER 2018-05-17 17:03 | Emergency (ER) | payer MEDICARE, OTHER ==
[2018-05-17 17:15] VITALS: BP 153/93; TEMP 96.9; O2SAT 96
[2018-05-17] MEDS ORDERED: MORPHINE SULFATE INJ 10 MG/ML VIAL IM ONE (17:43)
[2018-05-17] MEDS ORDERED: predniSONE 20 MG TAB PO ONE (17:43)
--- NOTE | 2018-05-17 17:46 | ED.PDOC ---
History of Present Illness - General Chief Complaint: Upper Extremity Injury Stated Complaint: right shoulder pain Time Seen by Provider: 05/17/18 17:33 Source: patient Exam Limitations: no limitations - History of Present Illness Initial Comments: the patient is a 52-year-old male presenting to the emergency room secondary to right-sided shoulder pain. The patient had a shoulder replacement a few years ago and has had a problem with frequent dislocations since. He is having it dislocate 2 or 3 times in the last couple of days. His just put it back in less than an hour ago and the patient is having continued pain as would be expected. He is getting set up for another shoulder surgery in [place]. He expects it to be done before mid June. He does have a shoulder immobilizer at home and he is currently not wearing. There are no neurovascular deficits. The dislocations are caused by normal activities not by any trauma. Timing/Duration: momentarily Severity: moderate Improving Factors: immobilization Worsening Factors: movement Associated Symptoms: denies symptoms Allergies/Adverse Reactions: Allergies Sulfa Antibiotics Adverse Reaction (Verified 11/30/17 12:53) Home Medications: Ambulatory Orders Bupropion HCl [Wellbutrin Xl] 150 mg PO DAILY 02/18/16 Simvastatin [Zocor] 20 mg PO DAILY 02/18/16 Amphetamine-Dextroamphetamine [Adderall] 20 mg PO DAILY PRN 10/16/16 Venlafaxine Xr [Effexor XR] 75 mg PO DAILY 10/16/16 Pantoprazole Sodium [Protonix] 20 mg PO BID #60 tab 08/28/17 Tramadol HCl 50 mg PO Q8HR PRN #30 tab 05/17/18 predniSONE [Prednisone] 20 mg PO DAILY #5 tab 05/17/18 Review of Systems - Review of Systems Constitutional: States: no symptoms reported EENTM: States: no symptoms reported Respiratory: States: no symptoms reported Cardiology: States: no symptoms reported Gastrointestinal/Abdominal: States: no symptoms reported Genitourinary: States: no symptoms reported Musculoskeletal: States: see HPI Skin: States: no symptoms reported Neurological: States: no symptoms reported Endocrine: States: no symptoms reported All other Systems: No Change from Baseline Past Medical History (General) - Patient Medical History Hx Seizures: No Hx Stroke: No Hx Dementia: No Hx Asthma: No Hx of COPD: No Hx Cardiac Disorders: Yes - hypercholesterolemia Hx Congestive Heart Failure: No Hx Pacemaker: No Hx Hypertension: No Hx Thyroid Disease: No Hx Diabetes: No Hx Gastroesophageal Reflux: No Hx Renal Disease: No Hx Cancer: No Hx of HIV: No Hx Hepatitis C: No Hx MRSA: No MRSA Source:: Wound Surgical History: other - Vaccination History Hx Tetanus, Diphtheria Vaccination: Yes Hx Influenza Vaccination: No Hx Pneumococcal Vaccination: No - Social History Hx Tobacco Use: No Hx Chewing Tobacco Use: No Hx Alcohol Use: Yes - social Hx Substance Use: No Hx Substance Use Treatment: No Hx Depression: No Hx Physical Abuse: No Hx Emotional Abuse: No Hx Suspected Abuse: No - Female History Patient : No Family Medical History - Family History Father Family History: Unknown Living Status: Unknown Hx Family Hypertension: Yes Physical Exam - Physical Exam General Appearance: Alert Eye Exam: bilateral normal Ears, Nose, Throat: hearing grossly normal Respiratory: no respiratory distress, no accessory muscle use Cardiovascular/Chest: normal peripheral pulses, no edema Peripheral Pulses: radial,right: 2+, radial,left: 2+ Rectal Exam: deferred Back Exam: normal inspection, other - right shoulder is tender to palpation but does appear to be in place based on passive range of motion Extremity: no pedal edema, normal capillary refill, other - see above in history present illness 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 The patient was given a dose of an IM pain medication and a dose of prednisone. He' ll be written for tramadol and prednisone to be used for the next few days. He does need to keep the right arm in a shoulder immobilizer for 3-5 days after each time he has a dislocation/reduction. He needs to keep follow-up with orthopedics in the [facility] for what will hopefully be a definitive surgery. ER warnings were given. Keep routine follow up with primary care doctor otherwise. Departure - Departure Clinical Impression: Chronic dislocation of right shoulder Disposition: Discharge to Home or Self Care Condition: Fair Departure Forms: ED Discharge - Pt. Copy, Patient Portal Self Enrollment Diet: regular diet Activity: no pushing/pulling with affected limb Referrals: Jose Ceballos MD [Primary Care Provider] - 1-2 Weeks Prescriptions: Tramadol HCl 50 mg PO Q8HR PRN #30 tab PRN Reason: Moderate Pain predniSONE [Prednisone] 20 mg PO DAILY #5 tab Home Medications: Ambulatory Orders Bupropion HCl [Wellbutrin Xl] 150 mg PO DAILY 02/18/16 Simvastatin [Zocor] 20 mg PO DAILY 02/18/16 Amphetamine-Dextroamphetamine [Adderall] 20 mg PO DAILY PRN 10/16/16 Venlafaxine Xr [Effexor XR] 75 mg PO DAILY 10/16/16 Pantoprazole Sodium [Protonix] 20 mg PO BID #60 tab 08/28/17 Tramadol HCl 50 mg PO Q8HR PRN #30 tab 05/17/18 predniSONE [Prednisone] 20 mg PO DAILY #5 tab 05/17/18 Additional Instructions: the patient is a 52-year-old male presenting secondary to acute pain after a recent episode of dislocation and reduction of his right shoulder. The patient was given a dose of an IM pain medication and a dose of prednisone. He' ll be written for tramadol and prednisone to be used for the next few days. He does need to keep the right arm in a shoulder immobilizer for 3-5 days after each time he has a dislocation/reduction. He needs to keep follow-up with orthopedics in the [facility] for what will hopefully be a definitive surgery. ER warnings were given. Keep routine follow up with primary care doctor otherwise.
== END 2018-05-17 18:08 | disposition home or self-care (01) ==
LOC: ER 17:03
DX: M24.411 Recurrent dislocation, right shoulder (principal); E78.00 Pure hypercholesterolemia, unspecified; Z96.611 Presence of right artificial shoulder joint; Z79.899 Other long term (current) drug therapy; Z88.2 Allergy status to sulfonamides
CPT/HCPCS: J2270; J7512

== ENCOUNTER 2018-07-04 17:14 | Emergency (ER) | payer MEDICARE, OTHER ==
[2018-07-04] MEDS ORDERED: TRIAMCINOLONE ACETONIDE INJ 40 MG/ML VIAL ONE (17:32)
[2018-07-04 17:33] VITALS: BP 127/94; TEMP 98.5; O2SAT 97
--- NOTE | 2018-07-04 17:46 | ED.PDOC ---
History of Present Illness - General Chief Complaint: General Stated Complaint: left thumb pain Time Seen by Provider: 07/04/18 17:30 Source: patient Exam Limitations: no limitations - History of Present Illness Initial Comments: The patient is a 52-year-old male presenting to the emergency room with trigger finger of his thumb of his left hand. Pain is primarily over the metacarpophalangeal joint. He has been having issues with this over the last couple of weeks. He has not had any treatment for it in the past. Timing/Duration: unsure Severity: moderate Improving Factors: nothing Worsening Factors: nothing Associated Symptoms: denies symptoms Allergies/Adverse Reactions: Allergies Sulfa Antibiotics Adverse Reaction (Verified 11/30/17 12:53) Home Medications: Ambulatory Orders Bupropion HCl [Wellbutrin Xl] 150 mg PO DAILY 02/18/16 Simvastatin [Zocor] 20 mg PO DAILY 02/18/16 Amphetamine-Dextroamphetamine [Adderall] 20 mg PO DAILY PRN 10/16/16 Venlafaxine Xr [Effexor XR] 75 mg PO DAILY 10/16/16 Pantoprazole Sodium [Protonix] 20 mg PO BID #60 tab 08/28/17 Tramadol HCl 50 mg PO Q8HR PRN #30 tab 05/17/18 predniSONE [Prednisone] 20 mg PO DAILY #5 tab 05/17/18 Review of Systems - Review of Systems Constitutional: States: no symptoms reported EENTM: States: no symptoms reported Respiratory: States: no symptoms reported Cardiology: States: no symptoms reported Gastrointestinal/Abdominal: States: no symptoms reported Genitourinary: States: no symptoms reported Musculoskeletal: States: see HPI Skin: States: no symptoms reported Neurological: States: no symptoms reported Endocrine: States: no symptoms reported All other Systems: No Change from Baseline Past Medical History (General) - Patient Medical History Hx Seizures: No Hx Stroke: No Hx Dementia: No Hx Asthma: No Hx of COPD: No Hx Cardiac Disorders: Yes - hypercholesterolemia Hx Congestive Heart Failure: No Hx Pacemaker: No Hx Hypertension: No Hx Thyroid Disease: No Hx Diabetes: No Hx Gastroesophageal Reflux: No Hx Renal Disease: No Hx Cancer: No Hx of HIV: No Hx Hepatitis C: No Hx MRSA: No MRSA Source:: Wound - Vaccination History Hx Tetanus, Diphtheria Vaccination: Yes Hx Influenza Vaccination: No Hx Pneumococcal Vaccination: No - Social History Hx Tobacco Use: Yes Hx Chewing Tobacco Use: No Hx Alcohol Use: Yes - social Hx Substance Use: No Hx Substance Use Treatment: No Hx Depression: No Hx Physical Abuse: No Hx Emotional Abuse: No Hx Suspected Abuse: No - Female History Patient : No Family Medical History - Family History Father Family History: Unknown Living Status: Unknown Hx Family Hypertension: Yes Physical Exam - Physical Exam General Appearance: Alert, Comfortable, No apparent distress Eye Exam: bilateral normal Ears, Nose, Throat: hearing grossly normal Neck: supple Respiratory: no respiratory distress, no accessory muscle use Cardiovascular/Chest: normal peripheral pulses, no edema Peripheral Pulses: radial,right: 2+, radial,left: 2+ Rectal Exam: deferred Extremity: no pedal edema, normal capillary refill, other - chronic limitations right shoulder. Trigger finger locked up on the thumb of the left hand. 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 After risk and benefits were explained, the patient's hand was cleaned with alcohol and 10 mg of Kenalog along with 1/2 cc of Xylocaine without epinephrine were injected at the site. This allowed for reduction of the trigger finger and the patient was placed in a thumb spica. He needs to remain in a thumb spica for 2-3 weeks. If this fails then a repeat injection may be required and if that fails then orthopedic referral may be warranted. ER warnings were given. Departure - Departure Clinical Impression: Trigger finger of left thumb Disposition: Discharge to Home or Self Care Condition: Fair Departure Forms: ED Discharge - Pt. Copy, Patient Portal Self Enrollment Instructions: Tenosynovitis (DC), Trigger Finger (DC) Diet: regular diet Activity: no pushing/pulling with affected limb Referrals: Jose Ceballos MD [Primary Care Provider] - 1-2 Weeks Home Medications: Ambulatory Orders Bupropion HCl [Wellbutrin Xl] 150 mg PO DAILY 02/18/16 Simvastatin [Zocor] 20 mg PO DAILY 02/18/16 Amphetamine-Dextroamphetamine [Adderall] 20 mg PO DAILY PRN 10/16/16 Venlafaxine Xr [Effexor XR] 75 mg PO DAILY 10/16/16 Pantoprazole Sodium [Protonix] 20 mg PO BID #60 tab 08/28/17 Tramadol HCl 50 mg PO Q8HR PRN #30 tab 05/17/18 predniSONE [Prednisone] 20 mg PO DAILY #5 tab 05/17/18 Additional Instructions: the patient's 52-year-old male presenting to the emergency room secondary to inflammation of the flexor tendon of the thumb of the left hand giving a trigger finger effect. the patient's hand was cleaned with alcohol and 10 mg of Kenalog along with 1/2 cc of Xylocaine without epinephrine were injected at the site. This allowed for reduction of the trigger finger and the patient was placed in a thumb spica. He needs to remain in a thumb spica for 2- 3 weeks. If this fails then a repeat injection may be required and if that fails then orthopedic referral may be warranted. ER warnings were given.
== END 2018-07-04 17:55 | disposition home or self-care (01) ==
LOC: ER 17:14
DX: M65.312 Trigger thumb, left thumb (principal); E78.00 Pure hypercholesterolemia, unspecified; Z87.891 Personal history of nicotine dependence; Z88.2 Allergy status to sulfonamides

== ENCOUNTER 2018-07-14 20:39 | Emergency (ER) | payer MEDICARE, OTHER ==
[2018-07-14 22:05] VITALS: BP 124/92; TEMP 98; O2SAT 96
--- NOTE | 2018-07-14 22:25 | ED.PDOC ---
History of Present Illness - General Chief Complaint: General Stated Complaint: numbness down his legs Time Seen by Provider: 07/14/18 21:16 Source: patient Exam Limitations: no limitations - History of Present Illness Initial Comments: PT WITH HX CERVICAL FUSION "2-6". PAST SEVERAL MONTHS HAS NOTICED NUMBNESS IN HIS HANDS WHEN HE TURNS HIS HEAD. HAS GOTTEN WORSE PAST 2 DAYS THEN TODAY HE TURNED HIS HEAD AND HIS LEGS BECAME WEAK X 2. COMES TO ER FOR EVALUATION. Severity: moderate Improving Factors: nothing Worsening Factors: other - HEAD MOVEMENT Associated Symptoms: weakness Allergies/Adverse Reactions: Allergies Sulfa Antibiotics Adverse Reaction (Verified 11/30/17 12:53) Home Medications: Ambulatory Orders Bupropion HCl [Wellbutrin Xl] 150 mg PO DAILY 02/18/16 Simvastatin [Zocor] 20 mg PO DAILY 02/18/16 Amphetamine-Dextroamphetamine [Adderall] 20 mg PO DAILY PRN 10/16/16 Venlafaxine Xr [Effexor XR] 75 mg PO DAILY 10/16/16 Pantoprazole Sodium [Protonix] 20 mg PO BID #60 tab 08/28/17 Tramadol HCl 50 mg PO Q8HR PRN #30 tab 05/17/18 predniSONE [Prednisone] 20 mg PO DAILY #5 tab 05/17/18 Review of Systems - Review of Systems Constitutional: Denies: fever EENTM: States: no symptoms reported Respiratory: Denies: cough, short of breath Cardiology: Denies: chest pain, palpitations Gastrointestinal/Abdominal: Denies: abdominal pain, nausea, vomiting Genitourinary: States: other - NO INCONTINENCE Musculoskeletal: Denies: back pain, neck pain Skin: States: no symptoms reported Neurological: States: numbness, weakness Endocrine: States: no symptoms reported Hematologic/Lymphatic: States: no symptoms reported Past Medical History (General) - Patient Medical History Hx Seizures: No Hx Stroke: No Hx Dementia: No Hx Asthma: No Hx of COPD: No Hx Cardiac Disorders: Yes - hypercholesterolemia Hx Congestive Heart Failure: No Hx Pacemaker: No Hx Hypertension: No Hx Thyroid Disease: No Hx Diabetes: No Hx Gastroesophageal Reflux: No Hx Renal Disease: No Hx Cancer: No Hx of HIV: No Hx Hepatitis C: No Hx MRSA: No MRSA Source:: Wound Surgical History: other - Vaccination History Hx Tetanus, Diphtheria Vaccination: Yes Hx Influenza Vaccination: No Hx Pneumococcal Vaccination: No - Social History Hx Tobacco Use: Yes Hx Chewing Tobacco Use: No Hx Alcohol Use: Yes Hx Substance Use: No Hx Substance Use Treatment: No Hx Depression: Yes Hx Physical Abuse: No Hx Emotional Abuse: No Hx Suspected Abuse: No - Female History Patient : No Family Medical History - Family History Father Family History: Unknown Living Status: Unknown Hx Family Hypertension: Yes Physical Exam - Physical Exam General Appearance: Alert, No apparent distress, Well Developed, Well Nourished Eye Exam: bilateral normal Ears, Nose, Throat: hearing grossly normal, normal ENT inspection Neck: non-tender, full range of motion, supple, normal inspection Respiratory: lungs clear, normal breath sounds Cardiovascular/Chest: regular rate, rhythm, no murmur Gastrointestinal/Abdominal: non tender, soft, no organomegaly Back Exam: normal inspection, no vertebral tenderness Extremity: normal range of motion, non-tender, normal inspection Neurologic: no motor/sensory deficits, alert, normal mood/affect, oriented x 3, other - NO FOOT DROP DTR: 2+: Biceps, left, Biceps, right, Triceps, left, Triceps, right, Achilles, left, Achilles, right, Patellar, left, Patellar, right Skin Exam: normal color, warm/dry Lymphatic: no adenopathy Progress - Progress Progress: 07/14/18 23:28 NO CHANGE, HAVE PAGED DR VALDIVIA. 07/14/18 23:33 D/W [facility] TO SEE OUTPT. CALL OFFICE IN AM. - EKG/XRAY/CT CT: MULTI LEVEL SEVERE FORAMINAL STENOSIS, NO SIGNIFICANT SPINAL STENOSIS. Departure - Departure Clinical Impression: Cervical radiculopathy due to osteoarthritis of spine, Foraminal stenosis of cervical region Time of Disposition: 23:34 Disposition: Discharge to Home or Self Care Condition: Good Departure Forms: ED Discharge - Pt. Copy, Patient Portal Self Enrollment Instructions: Radiculopathy (DC), Anterior Cervical Fusion Referrals: Jose Ceballos MD [Primary Care Provider] - 1-2 Weeks Home Medications: Ambulatory Orders Bupropion HCl [Wellbutrin Xl] 150 mg PO DAILY 02/18/16 Simvastatin [Zocor] 20 mg PO DAILY 02/18/16 Amphetamine-Dextroamphetamine [Adderall] 20 mg PO DAILY PRN 10/16/16 Venlafaxine Xr [Effexor XR] 75 mg PO DAILY 10/16/16 Pantoprazole Sodium [Protonix] 20 mg PO BID #60 tab 08/28/17 Tramadol HCl 50 mg PO Q8HR PRN #30 tab 05/17/18 predniSONE [Prednisone] 20 mg PO DAILY #5 tab 05/17/18
--- NOTE | 2018-07-14 22:41 | CT ---
PROCEDURE: Cervical Spine CLINICAL HISTORY: 52 years Male PARESTHESIAS HANDS, INTERMITTENT WEAKNESS LE'S COMPARISON: 08/28/2017. TECHNIQUE: Contiguous axial images obtained through the cervical spine without IV contrast. Coronal and sagittal reformatted images obtained. This exam was performed according to our department optimization program which includes automated exposure control, adjustment of the mA and/or kv according to patient size and/or use of iterative reconstruction technique. FINDINGS: Straightening of the normal lordosis. Changes of anterior fusion between C4-5, C5-6 and C6-7. There is a surgical plate and screws bridging the vertebral bodies at C6-7. Streak artifact from the surgical hardware slightly limits evaluation. Vertebral body alignment appears unremarkable. No acute fractures are identified. Degenerative changes involving the uncovertebral joints and facets. C3-4: Degenerative changes without significant spinal stenosis. There is moderate to severe right neural foraminal stenosis and severe left neural foraminal stenosis. C4-5: Degenerative changes greater on the left. No significant spinal stenosis. There is severe left neural foraminal stenosis. C5-6: Small posteriorly projecting osteophytes. No significant spinal stenosis. There is mild to moderate right neural foraminal stenosis and moderate left neural foraminal stenosis. C6-7: There are degenerative changes with posteriorly projecting osteophytes. There is mild spinal stenosis and severe bilateral neural foraminal stenosis. C7-T1: There are degenerative changes. No significant spinal stenosis. There is severe bilateral neural foraminal stenosis. Opacification of a left ethmoid air cell. Mucous retention cyst in the anterior left sphenoid sinus. IMPRESSION: Changes of anterior fusion between C4 and C7. Streak artifact from the surgical hardware slightly limits evaluation. Multilevel degenerative changes with foraminal stenosis at multiple levels. Electronically signed by: Medardo Wade MD 07/14/2018 10:40 PM [facility]
== END 2018-07-14 23:48 | disposition home or self-care (01) ==
LOC: ER 20:39
DX: M47.812 Spondylosis without myelopathy or radiculopathy, cervical region (principal); M54.12 Radiculopathy, cervical region; Z98.1 Arthrodesis status; F32.9 Major depressive disorder, single episode, unspecified; E78.00 Pure hypercholesterolemia, unspecified; Z87.891 Personal history of nicotine dependence; Z79.899 Other long term (current) drug therapy; Z88.2 Allergy status to sulfonamides

== ENCOUNTER 2018-08-04 17:43 | Emergency (ER) | payer MEDICARE, OTHER ==
[2018-08-04] MEDS ORDERED: KETOROLAC TROMETHAMINE INJ 60 MG/2 ML VIAL IM ONE (18:58)
--- NOTE | 2018-08-04 19:05 | ED.PDOC ---
History of Present Illness - General Chief Complaint: Trauma Stated Complaint: right shoulder pain Time Seen by Provider: 08/04/18 18:57 Source: patient Exam Limitations: no limitations - History of Present Illness Initial Comments: PT 14 DAYS S/P REVISION OF R SHOULDER ARTHROPLASTY. LOST HIS BALANCE AND FELL AGAINST HIS ELBOW WITH ONSET OF SIGNIFICANT R SHOULDER PAIN. D/W HIS SURGEON IN [place] WHO RECOMMENDED HE COME TO ER FOR EVALUATION. Severity: moderate Improving Factors: nothing Worsening Factors: movement Associated Symptoms: denies symptoms Allergies/Adverse Reactions: Allergies Sulfa Antibiotics Adverse Reaction (Verified 08/04/18 18:41) Home Medications: Ambulatory Orders Bupropion HCl [Wellbutrin Xl] 150 mg PO DAILY 02/18/16 Simvastatin [Zocor] 20 mg PO DAILY 02/18/16 Amphetamine-Dextroamphetamine [Adderall] 20 mg PO DAILY PRN 10/16/16 Venlafaxine Xr [Effexor XR] 75 mg PO DAILY 10/16/16 Pantoprazole Sodium [Protonix] 20 mg PO BID #60 tab 08/28/17 Tramadol HCl 50 mg PO Q8HR PRN #30 tab 05/17/18 predniSONE [Prednisone] 20 mg PO DAILY #5 tab 05/17/18 Tramadol HCl [Ultram] 50 mg PO Q6HR PRN #15 tab 08/04/18 Review of Systems - Review of Systems Constitutional: Denies: chills, fever EENTM: States: no symptoms reported Respiratory: Denies: cough, short of breath Cardiology: Denies: chest pain, palpitations Gastrointestinal/Abdominal: Denies: nausea, vomiting Musculoskeletal: States: other - PAIN IN SHOULDER BUT NO CHANGE IN APPEARANCE. Skin: States: no symptoms reported Neurological: Denies: numbness, tingling, weakness Past Medical History (General) - Patient Medical History Hx Seizures: No Hx Stroke: No Hx Dementia: No Hx Asthma: No Hx of COPD: No Hx Cardiac Disorders: Yes - hypercholesterolemia Hx Congestive Heart Failure: No Hx Pacemaker: No Hx Hypertension: No Hx Thyroid Disease: No Hx Diabetes: No Hx Gastroesophageal Reflux: No Hx Renal Disease: No Hx Cancer: No Hx of HIV: No Hx Hepatitis C: No Hx MRSA: No MRSA Source:: Wound Surgical History: other - Vaccination History Hx Tetanus, Diphtheria Vaccination: Yes Hx Influenza Vaccination: No Hx Pneumococcal Vaccination: No - Social History Hx Tobacco Use: Yes Hx Chewing Tobacco Use: No Hx Alcohol Use: Yes - socially Hx Substance Use: No Hx Substance Use Treatment: No Hx Depression: Yes Hx Physical Abuse: No Hx Emotional Abuse: No Hx Suspected Abuse: No - Female History Patient : No Family Medical History - Family History Father Family History: Unknown Living Status: Unknown Hx Family Hypertension: Yes Physical Exam - Physical Exam General Appearance: Alert, No apparent distress Eye Exam: bilateral normal Neck: non-tender, full range of motion, supple Respiratory: lungs clear, normal breath sounds Cardiovascular/Chest: regular rate, rhythm, no murmur Extremity: other - R SHOULDER IMMOBILIZED IN SLING WHICH WAS REMOVED. WELL HEAING SURGICAL INCISION. NO DEFORMITY, MOD TTP PROXIMAL HUMERUS, NVI, NO EVIDENCE OF TRAUMA Neurologic: no motor/sensory deficits, alert, normal mood/affect Skin Exam: normal color, warm/dry Lymphatic: no adenopathy Progress - EKG/XRAY/CT XRAY: SHOULDER, S/P ARTHROPLASTY, LANA Departure - Departure Clinical Impression: Contusion of shoulder Qualifiers: Encounter type: initial encounter Laterality: right Qualified Code(s): S40.011A - Contusion of right shoulder, initial encounter Time of Disposition: 19:53 Disposition: Discharge to Home or Self Care Condition: Good Departure Forms: ED Discharge - Pt. Copy, Patient Portal Self Enrollment Instructions: Contusion (DC) Referrals: Jose Ceballos MD [Primary Care Provider] - 1-2 Weeks Prescriptions: Tramadol HCl [Ultram] 50 mg PO Q6HR PRN #15 tab PRN Reason: Pain Home Medications: Ambulatory Orders Bupropion HCl [Wellbutrin Xl] 150 mg PO DAILY 02/18/16 Simvastatin [Zocor] 20 mg PO DAILY 02/18/16 Amphetamine-Dextroamphetamine [Adderall] 20 mg PO DAILY PRN 10/16/16 Venlafaxine Xr [Effexor XR] 75 mg PO DAILY 10/16/16 Pantoprazole Sodium [Protonix] 20 mg PO BID #60 tab 08/28/17 Tramadol HCl 50 mg PO Q8HR PRN #30 tab 05/17/18 predniSONE [Prednisone] 20 mg PO DAILY #5 tab 05/17/18 Tramadol HCl [Ultram] 50 mg PO Q6HR PRN #15 tab 08/04/18
[2018-08-04 19:26] VITALS: TEMP 98.5
--- NOTE | 2018-08-04 19:30 | RAD ---
EXAM DESCRIPTION: Shoulder,Right 2 or More Views CLINICAL HISTORY: 53 years Male FALL WITH PAIN, S/P REVISION OF ARTHROPLASTY COMPARISON: Right shoulder 11/09/2016 TECHNIQUE: AP views in internal and external rotation as well as a Y view of the shoulder are obtained. FINDINGS: OSSEOUS: There are postoperative changes of a right total shoulder arthroplasty which appears intact. Lewellen screws are noted overlying the edge of the glenoid fossa anteriorly. There is no evidence of acute fracture or osteolytic/osteoblastic lesions. There is no evidence of subluxation or dislocation. The joint spaces are preserved. There is no evidence of degenerative osteophytosis or sclerosis. There is no evidence of marginal erosive changes to suggest an inflammatory arthritis. SOFT TISSUE: There is no significant soft tissue swelling or mass. No evidence of significant soft tissue calcifications. No other radiopaque foreign bodies. IMPRESSION: No acute osseous abnormalities status post right shoulder arthroplasty. Remainder of findings as described above. Electronically signed by: Cristina Abrams MD 08/04/2018 7:29 PM [facility]
[2018-08-04] MEDS ORDERED: HYDROcodone 5MG/APAP 325MG 1 EA TAB PO ONE (19:40)
[2018-08-04] MEDS ORDERED: HYDROcodone 5MG/APAP 325MG 1 EA TAB ONE (19:42)
[2018-08-04 20:10] VITALS: BP 126/89; O2SAT 96
[2018-08-04] MEDS ORDERED: traMADol HCL 50 MG (ER DISP) # 6 TABS PO ONE (20:10)
[2018-08-04] MEDS ORDERED: traMADol HCL 50 MG (ER DISP) # 6 TABS ONE (20:11)
== END 2018-08-04 20:16 | disposition home or self-care (01) ==
LOC: ER 17:43
DX: S40.011A Contusion of right shoulder, initial encounter (principal); F32.9 Major depressive disorder, single episode, unspecified; E78.00 Pure hypercholesterolemia, unspecified; Z96.611 Presence of right artificial shoulder joint; Z87.891 Personal history of nicotine dependence; W18.39XA Other fall on same level, initial encounter; Y92.9 Unspecified place or not applicable; Z88.2 Allergy status to sulfonamides; Z79.899 Other long term (current) drug therapy
CPT/HCPCS: 73030; J1885

== ENCOUNTER 2018-08-14 22:06 | Emergency (ER) | payer MEDICARE, OTHER ==
--- NOTE | 2018-08-14 14:00 | ED.PDOC ---
History of Present Illness - General Chief Complaint: Respiratory Problem Stated Complaint: cough Time Seen by Provider: 08/14/18 13:49 Source: patient Exam Limitations: no limitations - History of Present Illness Comments: patient comes in today with a one-day history of cough, congestion, headache, fever, chills and body aches. No nausea, vomiting or diarrhea. He is otherwise healthy with the exception of posterior back stress disorder. Patient has an allergy to sulfa. Patient does smoke, drinks occasionally, but does not take illicit substances. Timing/Duration: yesterday Cough Quality/Degree: dry cough Possible Cause: no prior episodes Improving Factors: nothing Worsening Factors: nothing Associated Symptoms: cough, fever/chills, headache, nasal congestion, nasal drainage, sore throat Respiratory Risk Factors: no cause identified Allergies/Adverse Reactions: Allergies Sulfa Antibiotics Adverse Reaction (Verified 08/14/18 13:44) Home Medications: Ambulatory Orders Bupropion HCl [Wellbutrin Xl] 150 mg PO DAILY 02/18/16 Simvastatin [Zocor] 20 mg PO DAILY 02/18/16 Amphetamine-Dextroamphetamine [Adderall] 20 mg PO DAILY PRN 10/16/16 Venlafaxine Xr [Effexor XR] 75 mg PO DAILY 10/16/16 Pantoprazole Sodium [Protonix] 20 mg PO BID #60 tab 08/28/17 Tramadol HCl 50 mg PO Q8HR PRN #30 tab 05/17/18 predniSONE [Prednisone] 20 mg PO DAILY #5 tab 05/17/18 Tramadol HCl [Ultram] 50 mg PO Q6HR PRN #15 tab 08/04/18 Review of Systems - Review of Systems Constitutional: States: chills, fever, malaise EENTM: States: nose congestion, throat pain Respiratory: States: cough. Denies: short of breath, wheezing Cardiology: States: no symptoms reported. Denies: chest pain, edema, palpitations Gastrointestinal/Abdominal: States: no symptoms reported. Denies: abdominal pain, constipation, diarrhea, nausea, vomiting Genitourinary: States: no symptoms reported Past Medical History (General) - Patient Medical History Hx Seizures: No Hx Stroke: No Hx Dementia: No Hx Asthma: No Hx of COPD: No Hx Cardiac Disorders: Yes - hypercholesterolemia Hx Congestive Heart Failure: No Hx Pacemaker: No Hx Hypertension: No Hx Thyroid Disease: No Hx Diabetes: No Hx Gastroesophageal Reflux: No Hx Renal Disease: No Hx Cancer: No Hx of HIV: No Hx Hepatitis C: No Hx MRSA: No MRSA Source:: Wound - Vaccination History Hx Tetanus, Diphtheria Vaccination: Yes Hx Influenza Vaccination: Yes Hx Pneumococcal Vaccination: No - Social History Hx Tobacco Use: Yes Hx Chewing Tobacco Use: No Hx Alcohol Use: Yes - socially Hx Substance Use: No Hx Substance Use Treatment: No Hx Depression: Yes Hx Physical Abuse: No Hx Emotional Abuse: No Hx Suspected Abuse: No - Female History Patient : No Family Medical History - Family History Father Family History: Unknown Living Status: Unknown Hx Family Hypertension: Yes Physical Exam - Physical Exam General Appearance: Alert, Comfortable, No apparent distress Eye Exam: bilateral normal ENT Exam: hearing grossly normal, TMs normal, pharynx normal, nasal congestion, nasal drainage Neck: non-tender, full range of motion, supple, normal inspection Respiratory: chest non-tender, lungs clear, normal breath sounds, no respiratory distress Cardiovascular/Chest: normal peripheral pulses, regular rate, rhythm, no edema, no murmur Gastrointestinal/Abdominal: normal bowel sounds, non tender, soft Extremity: normal range of motion, non-tender Neurologic: alert, oriented x 3 Skin Exam: normal color Progress - Results/Orders Results/Orders: 08/14/18 14:59 Dexamethasone Inj [Decadron Inj] 4 mg IM ONCE ONE Ketorolac Tromethamine Inj [Toradol Inj] 60 mg IM ONCE ONE Laboratory Results WBC 6.8 K/mm3 (4.8-10.8) 08/14/18 14:04 RBC 3.72 M/mm3 (4.70-6.10) L 08/14/18 14:04 Hgb 11.7 gm/dL (14.0-18.0) L 08/14/18 14:04 Hct 34.4 % (42.0-52.0) L 08/14/18 14:04 MCV 92.4 fl (80.0-94.0) 08/14/18 14:04 MCH 31.4 pg (27.0-31.0) H 08/14/18 14:04 MCHC 33.9 g/dL (33.0-37.0) 08/14/18 14:04 RDW 13.6 % (11.5-14.5) 08/14/18 14:04 Plt Count 363 K/mm3 (130-400) 08/14/18 14:04 MPV 7.6 fl (7.40-10.4) 08/14/18 14:04 Absolute Neuts (auto) 4.00 K/uL (1.8-6.8) 08/14/18 14:04 Absolute Lymphs (auto) 2.10 K/uL (1.0-3.4) 08/14/18 14:04 Absolute Monos (auto) 0.40 K/uL (0.2-0.8) 08/14/18 14:04 Absolute Eos (auto) 0.20 K/uL (0.0-0.4) 08/14/18 14:04 Absolute Basos (auto) 0.00 K/uL (0.0-0.1) 08/14/18 14:04 Neutrophils % 58.9 % (42.0-78.0) 08/14/18 14:04 Lymphocytes % 31.4 % (20.0-50.0) 08/14/18 14:04 Monocytes % 6.6 % (2.0-9.0) 08/14/18 14:04 Eosinophils % 2.5 % (1.0-5.0) 08/14/18 14:04 Basophils % 0.6 % (0.0-2.0) 08/14/18 14:04 negative flu Departure - Departure Clinical Impression: Upper respiratory infection Qualifiers: URI type: unspecified viral URI Qualified Code(s): J06.9 - Acute upper respiratory infection, unspecified Disposition: Discharge to Home or Self Care Departure Forms: ED Discharge - Pt. Copy, Patient Portal Self Enrollment Referrals: Jose Ceballos MD [Primary Care Provider] - 1-2 Weeks Home Medications: Ambulatory Orders Bupropion HCl [Wellbutrin Xl] 150 mg PO DAILY 02/18/16 Simvastatin [Zocor] 20 mg PO DAILY 02/18/16 Amphetamine-Dextroamphetamine [Adderall] 20 mg PO DAILY PRN 10/16/16 Venlafaxine Xr [Effexor XR] 75 mg PO DAILY 10/16/16 Pantoprazole Sodium [Protonix] 20 mg PO BID #60 tab 08/28/17 Tramadol HCl 50 mg PO Q8HR PRN #30 tab 05/17/18 predniSONE [Prednisone] 20 mg PO DAILY #5 tab 05/17/18 Tramadol HCl [Ultram] 50 mg PO Q6HR PRN #15 tab 08/04/18 Additional Instructions: return to ER for shortess of breath, severe worsening of symptoms. Follow up with PCP in 3-4 days if not improving. OTC symptomatic care.
[~2018-08-14 22:06] MED LIST: DEXAMETHASONE INJ 4 MG/ML VIAL IM ONE; KETOROLAC TROMETHAMINE INJ 60 MG/2 ML VIAL IM ONE
[2018-08-14] MEDS ORDERED: traMADol HCL 50 MG TAB PO ONE (22:22)
--- NOTE | 2018-08-14 22:24 | ED.PDOC ---
History of Present Illness - General Chief Complaint: Back Pain or Injury Stated Complaint: back pain, cough, headache Time Seen by Provider: 08/14/18 22:21 Source: patient, family Exam Limitations: no limitations - History of Present Illness Initial Comments: patient comes in today with 1 day history of cough, congestion, severe headache, body aches, subjective chills. Patient was seen here at 4:00 where CBC and flu tests were done and were both within normal limits. Patient was sent home with diagnosis of viral upper respiratory infection but returns 6 hours later second amanda to worsening of chills and severe headache and cough. Timing/Duration: 24 hours Severity: moderate Improving Factors: nothing Worsening Factors: nothing Associated Symptoms: cough, fever/chills, headaches, malaise Allergies/Adverse Reactions: Allergies Sulfa Antibiotics Adverse Reaction (Verified 08/14/18 13:44) Home Medications: Ambulatory Orders Bupropion HCl [Wellbutrin Xl] 150 mg PO DAILY 02/18/16 Simvastatin [Zocor] 20 mg PO DAILY 02/18/16 Amphetamine-Dextroamphetamine [Adderall] 20 mg PO DAILY PRN 10/16/16 Venlafaxine Xr [Effexor XR] 75 mg PO DAILY 10/16/16 Pantoprazole Sodium [Protonix] 20 mg PO BID #60 tab 08/28/17 Tramadol HCl 50 mg PO Q8HR PRN #30 tab 05/17/18 predniSONE [Prednisone] 20 mg PO DAILY #5 tab 05/17/18 Tramadol HCl [Ultram] 50 mg PO Q6HR PRN #15 tab 08/04/18 Azithromycin [Zithromax Z-Jatinder] 250 mg PO DAILY #6 tab 08/15/18 Review of Systems - Review of Systems Constitutional: States: chills, fever, malaise EENTM: States: nose congestion, throat pain Respiratory: States: no symptoms reported, cough. Denies: short of breath, wheezing Cardiology: States: no symptoms reported. Denies: chest pain, palpitations Gastrointestinal/Abdominal: States: no symptoms reported. Denies: abdominal pain, diarrhea, nausea, vomiting Musculoskeletal: States: muscle pain Past Medical History (General) - Patient Medical History Hx Seizures: No Hx Stroke: No Hx Dementia: No Hx Asthma: No Hx of COPD: No Hx Cardiac Disorders: Yes - hypercholesterolemia Hx Congestive Heart Failure: No Hx Pacemaker: No Hx Hypertension: No Hx Thyroid Disease: No Hx Diabetes: No Hx Gastroesophageal Reflux: No Hx Renal Disease: No Hx Cancer: No Hx of HIV: No Hx Hepatitis C: No Hx MRSA: No MRSA Source:: Wound - Vaccination History Hx Tetanus, Diphtheria Vaccination: Yes Hx Influenza Vaccination: Yes Hx Pneumococcal Vaccination: No - Social History Hx Tobacco Use: Yes Hx Chewing Tobacco Use: No Hx Alcohol Use: Yes - socially Hx Substance Use: No Hx Substance Use Treatment: No Hx Depression: Yes Hx Physical Abuse: No Hx Emotional Abuse: No Hx Suspected Abuse: No - Female History Patient : No Family Medical History - Family History Father Family History: Unknown Living Status: Unknown Hx Family Hypertension: Yes Physical Exam - Physical Exam General Appearance: Anxious, No apparent distress Eye Exam: bilateral normal Ears, Nose, Throat: nasal congestion, pharyngeal erythema, other - TM bilaterally clear Neck: non-tender, full range of motion, supple, normal inspection Respiratory: chest non-tender, lungs clear, normal breath sounds, no respiratory distress Cardiovascular/Chest: normal peripheral pulses, regular rate, rhythm, no edema, no murmur Gastrointestinal/Abdominal: normal bowel sounds, non tender, soft 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 He does state is normally takes Seroquel for insomnia, PTSD, and traumatic brain injury but stopped it suddenly when he started feeling ill 2 days ago. He has missed two doses and is wondering if some of the symptoms is from withdrawl from that medication. We will give his home dose now. Explained the only significant finding is elevated lactic acid with on other evidence of sepsis. Normal temperature, WBC, BP, HR and nothing on chest xray or urine. Will give IV antibiotics, fluid, and monitor in ER. recheck labs in 4 hours and monitor here in the mean time. 08/15/18 05:04 patient feeling much better although still with moderate headache. Lactic acid is normal now. Will discharge home on antibiotics and have him follow up in clinic - Results/Orders Results/Orders: 08/14/18 22:38 STREP A SCREEN CULTURE Stat 08/14/18 23:08 Azithromycin IV [Zithromax IV] 500 mg Sodium Chloride 0.9% 250Ml [NS 250ml] 250 ml IVPB ONCE cefTRIAXone SODIUM [Rocephin] 2 gm Sodium Chl 0.9% 100Ml Mini-Bag [NS 100ml MINI-BAG+] 100 ml IVPB ONCE Laboratory Results WBC 6.5 K/mm3 (4.8-10.8) 08/14/18 22:30 RBC 3.83 M/mm3 (4.70-6.10) L 08/14/18 22:30 Hgb 11.9 gm/dL (14.0-18.0) L 08/14/18 22:30 Hct 35.3 % (42.0-52.0) L 08/14/18 22:30 MCV 92.3 fl (80.0-94.0) 08/14/18 22:30 MCH 31.0 pg (27.0-31.0) 08/14/18 22:30 MCHC 33.7 g/dL (33.0-37.0) 08/14/18 22:30 RDW 13.7 % (11.5-14.5) 08/14/18 22:30 Plt Count 400 K/mm3 (130-400) 08/14/18 22:30 MPV 7.2 fl (7.40-10.4) L 08/14/18 22:30 Absolute Neuts (auto) 5.00 K/uL (1.8-6.8) 08/14/18 22:30 Absolute Lymphs (auto) 1.30 K/uL (1.0-3.4) 08/14/18 22:30 Absolute Monos (auto) 0.20 K/uL (0.2-0.8) 08/14/18 22:30 Absolute Eos (auto) 0.00 K/uL (0.0-0.4) 08/14/18 22:30 Absolute Basos (auto) 0.00 K/uL (0.0-0.1) 08/14/18 22:30 Neutrophils % 77.4 % (42.0-78.0) 08/14/18 22:30 Lymphocytes % 19.3 % (20.0-50.0) L 08/14/18 22:30 Monocytes % 2.8 % (2.0-9.0) 08/14/18 22:30 Eosinophils % 0.1 % (1.0-5.0) L 08/14/18 22:30 Basophils % 0.4 % (0.0-2.0) 08/14/18 22:30 Sodium 138 mmol/L (135-145) 08/14/18 22:30 Potassium 3.6 mmol/L (3.6-5.0) 08/14/18 22:30 Chloride 104 mmol/L (101-111) 08/14/18 22:30 Carbon Dioxide 24 mmol/L (21-31) 08/14/18 22:30 Anion Gap 13.6 (12-18) 08/14/18 22:30 BUN 10 mg/dL (7-18) 08/14/18 22:30 Creatinine 0.93 mg/dL (0.6-1.3) 08/14/18 22:30 BUN/Creatinine Ratio 10.8 (10-20) 08/14/18 22:30 Random Glucose 138 mg/dL (70-105) H 08/14/18 22:30 Serum Osmolality 276.9 mOsm/L (275-295) 08/14/18 22:30 Lactic Acid 2.7 mmol/L (0.5-2.2) H* 08/14/18 22:30 Calcium 9.2 mg/dL (8.4-10.2) 08/14/18 22:30 Total Bilirubin 0.6 mg/dL (0.2-1.0) 08/14/18 22:30 AST 28 IU/L (10-42) 08/14/18 22:30 ALT 32 IU/L (10-60) 08/14/18 22:30 Alkaline Phosphatase 153 IU/L (42-121) H 08/14/18 22:30 Serum Total Protein 7.4 gm/dL (6.4-8.2) 08/14/18 22:30 Albumin 4.2 g/dl (3.2-5.5) 08/14/18 22:30 Globulin 3.2 gm/dL (2.3-3.5) 08/14/18 22:30 Albumin/Globulin Ratio 1.3 (1.1-1.9) 08/14/18 22:30 Urine Color Yellow (Yellow) 08/14/18 22:50 Urine Appearance Clear (Clear) 08/14/18 22:50 Urine pH 8.5 (4.5-7.8) H 08/14/18 22:50 Ur Specific [place] 1.025 (1.005-1.030) 08/14/18 22:50 Urine Protein Negative mg/dL 08/14/18 22:50 Urine Glucose (UA) Negative mg/dL (Negative) 08/14/18 22:50 Urine Ketones Negative mg/dL (NEGATIVE) 08/14/18 22:50 Urine Blood Trace-intact (Negative) H 08/14/18 22:50 Urine Nitrite Negative 08/14/18 22:50 Urine Bilirubin Negative (NEGATIVE) 08/14/18 22:50 Urine Urobilinogen 0.2 mg/dL (0.2-1.0) 08/14/18 22:50 Ur Leukocyte Esterase Negative (Negative) 08/14/18 22:50 Urine RBC 3-5 /hpf H 08/14/18 22:50 Urine WBC 0 /hpf 08/14/18 22:50 Ur Epithelial Cells 0 /hpf 08/14/18 22:50 Urine Bacteria Rare 08/14/18 22:50 Group A Strep Rapid Negative (NEGATIVE) 08/14/18 22:38 Patient Name: EHSAN YATES Gender: Male Date of : 1965 Referring Physician: JEANNIE GUZMAN Organization: [facility] Accession Number: [id number] Requested Date: August 14, 2018 23:04 Report Status: Final Requested Procedure: 1 Procedure Description: Head Modality: CT Findings Reporting MD: Caleb Whitmore Fellow MD: Not available Dictation Time: Dampener Operator: Not available Consultant Intern Date: EXAM DESCRIPTION: Head CLINICAL HISTORY: severe headache COMPARISON: None Available. Technique: Contiguous axial images of the brain were obtained without the administration of intravenous contrast. Coronal and sagittal reformats obtained and reviewed. This exam was performed according to our departmental dose-optimization program which includes use of Automated Exposure Control, adjustment of the mA and/or kV according to patient size and/or use of iterative reconstruction technique. Findings: Brain: No hemorrhage. No territorial infarct. No mass effect. No herniation. Ventricles: Within normal limits for patient's age. Bones: No acute osseous abnormality. Paranasal sinuses: Unremarkable. Mastoid air cells: Unremarkable. Soft tissues: No acute abnormality. IMPRESSION: No acute intracranial abnormalities. Patient Name: EHSAN YATES Gender: Male Date of : 1965 Referring Physician: JEANNIE GUZMAN Organization: [facility] Accession Number: [id number] Requested Date: August 14, 2018 22:22 Report Status: Corrected Requested Procedure: 1 Procedure Description: XR CHEST 2 VIEWS Modality: CR Findings Reporting MD: Caleb Whitmore Fellow MD: Not available Dictation Time: Dampener Operator: Not available Consultant Intern Date: ADDENDUM #1 Exam is a two view chest, AP and lateral. Electronically signed by: Caleb Whitmore DO 08/14/2018 11:12 PM BUSINESS FUNCTIONAL ANALYST ORIGINAL REPORT EXAM DESCRIPTION: AP view of the chest CLINICAL HISTORY:53 years Male, cough Comparison: October 30, 2017 FINDINGS: No focal lung consolidation. No pleural effusion. No pneumothorax. Cardiac and mediastinal silhouette is unremarkable. No acute osseous abnormality. Soft tissues are unremarkable. IMPRESSION: No acute findings. No focal lung consolidation. Electronically signed by: Caleb Whitmore DO 08/14/2018 11:01 PM BUSINESS FUNCTIONAL ANALYST END ADDENDUM EXAM DESCRIPTION: AP view of the chest CLINICAL HISTORY:53 years Male, cough Comparison: October 30, 2017 FINDINGS: No focal lung consolidation. No pleural effusion. No pneumothorax. Cardiac and mediastinal silhouette is unremarkable. No acute osseous abnormality. Soft tissues are unremarkable. Radiology [employer] [address] [place] [address], [address] [place], [place] T [phone] F [phone] [email or web address] - Report exported on SatAug 14, 2018 23:46:17 -0600 - Page 2 of 2 IMPRESSION: No acute findings. No focal lung consolidation Departure - Departure Clinical Impression: Upper respiratory infection Qualifiers: URI type: unspecified URI Qualified Code(s): J06.9 - Acute upper respiratory infection, unspecified Disposition: Discharge to Home or Self Care Condition: Fair Departure Forms: ED Discharge - Pt. Copy, Patient Portal Self Enrollment Instructions: DI for Low Back Pain Referrals: Jose Ceballos MD [Primary Care Provider] - 1-2 Weeks Prescriptions: Azithromycin [Zithromax Z-Jatinder] 250 mg PO DAILY #6 tab Home Medications: Ambulatory Orders Bupropion HCl [Wellbutrin Xl] 150 mg PO DAILY 02/18/16 Simvastatin [Zocor] 20 mg PO DAILY 02/18/16 Amphetamine-Dextroamphetamine [Adderall] 20 mg PO DAILY PRN 10/16/16 Venlafaxine Xr [Effexor XR] 75 mg PO DAILY 10/16/16 Pantoprazole Sodium [Protonix] 20 mg PO BID #60 tab 08/28/17 Tramadol HCl 50 mg PO Q8HR PRN #30 tab 05/17/18 predniSONE [Prednisone] 20 mg PO DAILY #5 tab 05/17/18 Tramadol HCl [Ultram] 50 mg PO Q6HR PRN #15 tab 08/04/18 Azithromycin [Zithromax Z-Jatinder] 250 mg PO DAILY #6 tab 08/15/18 Additional Instructions: return to ER for increase in headache, shortness of breath, severe worsening of symptoms. Follow up with PCP in clinic in 2-3 days.
[2018-08-14] MEDS ORDERED: PROMETHAZINE W/CODEINE SYR 5 ML UD PO ONE (22:27)
--- NOTE | 2018-08-14 23:04 | RAD ---
EXAM DESCRIPTION: AP view of the chest CLINICAL HISTORY:53 years Male, cough Comparison: October 30, 2017 FINDINGS: No focal lung consolidation. No pleural effusion. No pneumothorax. Cardiac and mediastinal silhouette is unremarkable. No acute osseous abnormality. Soft tissues are unremarkable. IMPRESSION: No acute findings. No focal lung consolidation. Electronically signed by: Caleb Whitmore DO 08/14/2018 11:01 PM [facility]
[2018-08-14] MEDS ORDERED: cefTRIAXone SODIUM 2 GM in SODIUM CHL 0.9% 100ML MINI-BAG 100 ML IVPB ONE (23:08)
[2018-08-14] MEDS ORDERED: AZITHROMYCIN IV 500 MG in SODIUM CHLORIDE 0.9% 250ML 250 ML IVPB ONE (23:08)
[2018-08-14] MEDS ORDERED: SODIUM CHL 0.9% 100ML MINI-BAG 100 ML IVPB ONE (23:37)
[2018-08-14] MEDS ORDERED: MORPHINE SULFATE INJ 10 MG/ML VIAL IV ONE (23:43)
--- NOTE | 2018-08-14 23:43 | CT ---
EXAM DESCRIPTION: Head CLINICAL HISTORY: severe headache COMPARISON: None Available. Technique: Contiguous axial images of the brain were obtained without the administration of intravenous contrast. Coronal and sagittal reformats obtained and reviewed. This exam was performed according to our departmental dose-optimization program which includes use of Automated Exposure Control, adjustment of the mA and/or kV according to patient size and/or use of iterative reconstruction technique. Findings: Brain: No hemorrhage. No territorial infarct. No mass effect. No herniation. Ventricles: Within normal limits for patient's age. Bones: No acute osseous abnormality. Paranasal sinuses: Unremarkable. Mastoid air cells: Unremarkable. Soft tissues: No acute abnormality. IMPRESSION: No acute intracranial abnormalities. Electronically signed by: Caleb Whitmore DO 08/14/2018 11:41 PM [facility]
[2018-08-14] MEDS ORDERED: SODIUM CHLORIDE 0.9% 1000ML 1,000 ML IVS ONE (23:50)
[2018-08-14] MEDS ORDERED: AZITHROMYCIN IV 500 MG VIAL IVPB ONE (23:51)
[2018-08-14] MEDS ORDERED: SODIUM CHLORIDE 0.9% 250ML 250 ML ONE (23:51)
[2018-08-15] MEDS ORDERED: QUEtiapine FUMARATE 100 MG TAB ONE (00:13)
[2018-08-15] MEDS ORDERED: MORPHINE SULFATE INJ 10 MG/ML VIAL IV ONE (05:05)
[2018-08-15 05:37] VITALS: BP 124/76; TEMP 98.2; O2SAT 96
[2018-08-15] MEDS ORDERED: QUEtiapine FUMARATE 100 MG TAB PO ONE (23:55)
== END 2018-08-15 05:07 | disposition home or self-care (01) ==
LOC: ER 22:06
DX: J06.9 Acute upper respiratory infection, unspecified (principal); R51 Headache; F32.9 Major depressive disorder, single episode, unspecified; E78.00 Pure hypercholesterolemia, unspecified; Z87.891 Personal history of nicotine dependence; Z79.899 Other long term (current) drug therapy; Z88.2 Allergy status to sulfonamides
CPT/HCPCS: 36415; 70450; 71046; 80053; 81001; 83605; 85025; 87070; 87502; 87880; J0456; J0696; J2270; J7030; J7050

== ENCOUNTER 2018-08-17 10:59 | Emergency (ER) | payer MEDICARE, OTHER ==
[2018-08-17 11:24] VITALS: TEMP 97.7
--- NOTE | 2018-08-17 11:48 | ED.PDOC ---
History of Present Illness - General Chief Complaint: Headache Stated Complaint: Headache Time Seen by Provider: 08/17/18 11:43 Source: patient Exam Limitations: no limitations - History of Present Illness Initial Comments: Surinder Parikh 53 y/o male stated that he had been having intermittent headache for the last 5 days and had been here in ER 3 x for same symptoms.Stated his headache is sharp bitemporal and radiates behind eyes.Has photophobia ,nausea but no vomiting,no blurry vision ,no diplopia ,no muscle weakness,no slurred speech.Had CT-head and blood work done -no significant findings noted except for slight elevation of lactic acid which got normal after IVF hydration. Timing/Duration: waxing and waning, other - 5 days Quality: sharp Head Injury Location: other - NO HEAD INJURY Recent Head Trauma: no recent headache/trauma Improving Factors: nothing Worsening Factors: nothing Associated Symptoms: denies symptoms Allergies/Adverse Reactions: Allergies Sulfa Antibiotics Adverse Reaction (Verified 08/17/18 11:13) Home Medications: Ambulatory Orders Bupropion HCl [Wellbutrin Xl] 150 mg PO DAILY 02/18/16 Simvastatin [Zocor] 20 mg PO DAILY 02/18/16 Amphetamine-Dextroamphetamine [Adderall] 20 mg PO DAILY PRN 10/16/16 Venlafaxine Xr [Effexor XR] 75 mg PO DAILY 10/16/16 Pantoprazole Sodium [Protonix] 20 mg PO BID #60 tab 08/28/17 Acetamin W/Cod #3 Tab [Tylenol w/CODEINE #3] 1 ea PO TID PRN #20 tab 08/17/18 Baclofen 20 mg PO BID #20 tab 08/17/18 Prochlorperazine Tab [Compazine Tab] 10 mg PO TID #20 tab 08/17/18 Review of Systems - Review of Systems Constitutional: States: no symptoms reported EENTM: States: no symptoms reported Respiratory: States: no symptoms reported Cardiology: States: no symptoms reported Gastrointestinal/Abdominal: States: no symptoms reported Genitourinary: States: no symptoms reported Musculoskeletal: States: no symptoms reported Skin: States: no symptoms reported Neurological: States: see HPI, headache Past Medical History (General) - Patient Medical History Hx Seizures: No Hx Stroke: No Hx Dementia: No Hx Asthma: No Hx of COPD: No Hx Cardiac Disorders: Yes - hypercholesterolemia Hx Congestive Heart Failure: No Hx Pacemaker: No Hx Hypertension: No Hx Thyroid Disease: No Hx Diabetes: No Hx Gastroesophageal Reflux: No Hx Renal Disease: No Hx Cancer: No Hx of HIV: No Hx Hepatitis C: No Hx MRSA: No MRSA Source:: Wound Surgical History: appendectomy, other - right shoulder - Vaccination History Hx Tetanus, Diphtheria Vaccination: Yes Hx Influenza Vaccination: Yes Hx Pneumococcal Vaccination: No - Social History Hx Tobacco Use: Yes Hx Chewing Tobacco Use: No Hx Alcohol Use: Yes - socially Hx Substance Use: No Hx Substance Use Treatment: No Hx Depression: Yes Hx Physical Abuse: No Hx Emotional Abuse: No Hx Suspected Abuse: No - Female History Patient : No Family Medical History - Family History Father Family History: Unknown Living Status: Unknown Hx Family Hypertension: Yes Physical Exam - Physical Exam General Appearance: Alert, Comfortable, No apparent distress Eyes, Ears, Nose, Throat Exam: PERRL/EOMI, normal ENT inspection, TMs normal, pharynx normal Neck: non-tender, full range of motion, supple, normal inspection, trachea midline Cardiovascular/Chest: normal peripheral pulses, regular rate, rhythm, no murmur Respiratory: chest non-tender, lungs clear, normal breath sounds, no respiratory distress Gastrointestinal/Abdominal: normal bowel sounds, non tender, soft Back Exam: normal inspection, no CVA tenderness, no vertebral tenderness Extremity: no pedal edema, no calf tenderness Mental Status: alert, oriented x 3, other - 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 Exam: normal hearing, normal speech, PERRL Motor/Sensory: no motor deficit, no sensory deficit, no pronator drift Skin Exam: warm/dry, normal color Progress - Progress Progress: 08/17/18 12:13 Vital Signs - 8 hr 08/17/18 11:17 Temperature 97.7 F Pulse Rate [ 89 Left Radial] Respiratory 18 Rate Blood Pressure 106/76 [Left Arm] O2 Sat by Pulse 96 Oximetry 08/17/18 12:49 able to go to the bathroom w/o asistance ;talking to 08/17/18 13:06 [place] better after morphine,norflex,decadron,compazine iv stated he will call his neurologist in [place] Departure - Departure Clinical Impression: Headache Qualifiers: Headache type: unspecified Headache chronicity pattern: unspecified pattern Intractability: not intractable Qualified Code(s): R51 - Headache Time of Disposition: 13:08 Disposition: Discharge to Home or Self Care Condition: Fair Departure Forms: ED Discharge - Pt. Copy, Patient Portal Self Enrollment Instructions: DI for Headache Referrals: Jose Ceballos MD [Primary Care Provider] - 1-2 Weeks Prescriptions: Acetamin W/Cod #3 Tab [Tylenol w/CODEINE #3] 1 ea PO TID PRN #20 tab PRN Reason: Headache Or Mild Pain Baclofen 20 mg PO BID #20 tab Prochlorperazine Tab [Compazine Tab] 10 mg PO TID #20 tab Home Medications: Ambulatory Orders Bupropion HCl [Wellbutrin Xl] 150 mg PO DAILY 02/18/16 Simvastatin [Zocor] 20 mg PO DAILY 02/18/16 Amphetamine-Dextroamphetamine [Adderall] 20 mg PO DAILY PRN 10/16/16 Venlafaxine Xr [Effexor XR] 75 mg PO DAILY 10/16/16 Pantoprazole Sodium [Protonix] 20 mg PO BID #60 tab 08/28/17 Acetamin W/Cod #3 Tab [Tylenol w/CODEINE #3] 1 ea PO TID PRN #20 tab 08/17/18 Baclofen 20 mg PO BID #20 tab 08/17/18 Prochlorperazine Tab [Compazine Tab] 10 mg PO TID #20 tab 08/17/18 Additional Instructions: Follow up with primary Md for recheck and neurologist referral;Return to ER if symptoms worsens
[2018-08-17] MEDS ORDERED: SODIUM CHLORIDE 0.9% 500ML 500 ML IVS ONE (12:14)
[2018-08-17] MEDS ORDERED: PROCHLORPERAZINE INJ 10 MG/2 ML VIAL IV ONE (12:14)
[2018-08-17] MEDS ORDERED: MORPHINE SULFATE INJ 10 MG/ML VIAL IV ONE (12:14)
[2018-08-17] MEDS ORDERED: ORPHENADRINE CITRATE 30 MG/ML AMP IV ONE ×2 (12:14→12:32)
[2018-08-17] MEDS ORDERED: DEXAMETHASONE INJ 10 MG/ML VIAL IV ONE (12:48)
[2018-08-17 13:23] VITALS: BP 116/79; O2SAT 95
== END 2018-08-17 13:22 | disposition home or self-care (01) ==
LOC: ER 10:59
DX: R51 Headache (principal); R11.0 Nausea; H53.149 Visual discomfort, unspecified; F32.9 Major depressive disorder, single episode, unspecified; E78.00 Pure hypercholesterolemia, unspecified; Z87.891 Personal history of nicotine dependence
CPT/HCPCS: J0780; J1100; J2270; J2360; J7040

== ENCOUNTER 2018-09-24 20:01 | Emergency (ER) | payer MEDICARE, OTHER ==
[2018-09-24] MEDS ORDERED: KETOROLAC TROMETHAMINE INJ 30 MG/ML VIAL IM ONE (20:26)
--- NOTE | 2018-09-24 20:39 | ED.PDOC ---
History of Present Illness - General Chief Complaint: Dental/Mouth Stated Complaint: Right lower broken tooth Time Seen by Provider: 09/24/18 20:02 Source: patient Exam Limitations: no limitations - History of Present Illness Initial Comments: Patient presents with a broken right mandibular tooth. He says he broke it three days ago. He claims that he called his dentist but it was "after hours" at the dentist office so his dentist called in a prescription for amoxicillin and "some pain medication" to [email or web address]. The patient says that the [email or web address] pharmacy was already closed so that he could not waste picker the prescription today. Patient has a history of frequent visits for which he often obtains narcotics. He also has a history of overdose. Timing/Duration: other - 3 days Severity: mild Improving Factors: rest Worsening Factors: eating Associated Symptoms: denies symptoms Allergies/Adverse Reactions: Allergies Sulfa Antibiotics Adverse Reaction (Verified 08/17/18 11:13) Home Medications: Ambulatory Orders Bupropion HCl [Wellbutrin Xl] 150 mg PO DAILY 02/18/16 Simvastatin [Zocor] 20 mg PO DAILY 02/18/16 Amphetamine-Dextroamphetamine [Adderall] 20 mg PO DAILY PRN 10/16/16 Venlafaxine Xr [Effexor XR] 75 mg PO DAILY 10/16/16 Pantoprazole Sodium [Protonix] 20 mg PO BID #60 tab 08/28/17 Acetamin W/Cod #3 Tab [Tylenol w/CODEINE #3] 1 ea PO TID PRN #20 tab 08/17/18 Baclofen 20 mg PO BID #20 tab 08/17/18 Prochlorperazine Tab [Compazine Tab] 10 mg PO TID #20 tab 08/17/18 Review of Systems - Review of Systems Constitutional: States: no symptoms reported EENTM: States: see HPI Respiratory: States: no symptoms reported Cardiology: States: no symptoms reported Gastrointestinal/Abdominal: States: no symptoms reported Genitourinary: States: no symptoms reported Musculoskeletal: States: no symptoms reported Skin: States: no symptoms reported Neurological: States: no symptoms reported Endocrine: States: no symptoms reported Hematologic/Lymphatic: States: no symptoms reported Past Medical History (General) - Patient Medical History Hx Seizures: No Hx Stroke: No Hx Dementia: No Hx Asthma: No Hx of COPD: No Hx Cardiac Disorders: Yes - hypercholesterolemia Hx Congestive Heart Failure: No Hx Pacemaker: No Hx Hypertension: No Hx Thyroid Disease: No Hx Diabetes: No Hx Gastroesophageal Reflux: No Hx Renal Disease: No Hx Cancer: No Hx of HIV: No Hx Hepatitis C: No Hx MRSA: No MRSA Source:: Wound - Vaccination History Hx Tetanus, Diphtheria Vaccination: Yes Hx Influenza Vaccination: Yes Hx Pneumococcal Vaccination: No - Social History Hx Tobacco Use: Yes Hx Chewing Tobacco Use: No Hx Alcohol Use: Yes - socially Hx Substance Use: No Hx Substance Use Treatment: No Hx Depression: Yes Hx Physical Abuse: No Hx Emotional Abuse: No Hx Suspected Abuse: No - Female History Patient : No Family Medical History - Family History Father Family History: Unknown Living Status: Unknown Hx Family Hypertension: Yes Physical Exam - Physical Exam General Appearance: Alert Ears, Nose, Throat: other - poor dentition. several fractured teeth. Mildly TTP over right mandibular teeth. Neck: non-tender, full range of motion, supple Respiratory: lungs clear, normal breath sounds Cardiovascular/Chest: regular rate, rhythm, no edema Gastrointestinal/Abdominal: normal bowel sounds, non tender, soft Progress - Progress Progress: 09/24/18 20:40 Patient requested a narcotic pain medication because he says that his body has "become used to those meds so a little won't do anything". I recommended Toradol since it is an anti-inflammatory and works in a different way. I pointed out his multiple visits for a variety of complaints that have resulted in narcotic prescriptions. He agreed to try the Toradol. 09/24/18 20:53 Toradol gave him some relief. Care instructions given. E.R. warnings given. Questions were elicited and answered. Patient voiced understanding and agreement with the plan. Departure - Departure Clinical Impression: Dental injury Disposition: Discharge to Home or Self Care Condition: Good Departure Forms: ED Discharge - Pt. Copy, Patient Portal Self Enrollment Instructions: DI for Dental Pain Diet: resume usual diet Activity: increase activity as tolerated Referrals: Jose Ceballos MD [Primary Care Provider] - 1-2 Weeks Home Medications: Ambulatory Orders Bupropion HCl [Wellbutrin Xl] 150 mg PO DAILY 02/18/16 Simvastatin [Zocor] 20 mg PO DAILY 02/18/16 Amphetamine-Dextroamphetamine [Adderall] 20 mg PO DAILY PRN 10/16/16 Venlafaxine Xr [Effexor XR] 75 mg PO DAILY 10/16/16 Pantoprazole Sodium [Protonix] 20 mg PO BID #60 tab 08/28/17 Acetamin W/Cod #3 Tab [Tylenol w/CODEINE #3] 1 ea PO TID PRN #20 tab 08/17/18 Baclofen 20 mg PO BID #20 tab 08/17/18 Prochlorperazine Tab [Compazine Tab] 10 mg PO TID #20 tab 08/17/18 Additional Instructions: Follow your dentist's directions and see him as soon as possible.
[2018-09-24 20:47] VITALS: O2SAT 98
[2018-09-24 21:08] VITALS: BP 139/98; TEMP 98.1
== END 2018-09-24 20:55 | disposition home or self-care (01) ==
LOC: ER 20:01
DX: S02.5XXA Fracture of tooth (traumatic), initial encounter for closed fracture (principal); F32.9 Major depressive disorder, single episode, unspecified; E78.00 Pure hypercholesterolemia, unspecified; Z87.891 Personal history of nicotine dependence; Z79.899 Other long term (current) drug therapy; Z88.2 Allergy status to sulfonamides; X58.XXXA Exposure to other specified factors, initial encounter; Y92.9 Unspecified place or not applicable

== ENCOUNTER 2018-10-02 23:50 | Emergency (ER) | payer MEDICARE, OTHER ==
[2018-10-03] MEDS ORDERED: MORPHINE SULFATE INJ 10 MG/ML VIAL IV ONE (00:12)
--- NOTE | 2018-10-03 00:19 | ED.PDOC ---
History of Present Illness - General Chief Complaint: Neck Injury/Pain Stated Complaint: neck pain/burning sensation down into limbs Time Seen by Provider: 10/03/18 00:04 Source: patient Exam Limitations: no limitations - History of Present Illness Initial Comments: Surinder Parikh 53 y/o male stated that for the last 2 days felt some electric current on the back of his shoulder whenever neck turning sideways mostly on the left side which radiates all the way down to his lower back then today stated got worse that lower legs got weak and fell 3-4 x .Denies numbness, dysarth temitope,upper extremity weakness,facial weakness dysphagia ,bowel or bladder dysfunctions. Timing/Duration: getting worse, other - 3 days Severity: moderate Improving Factors: rest Worsening Factors: movement Associated Symptoms: other - see hpi Allergies/Adverse Reactions: Allergies Sulfa Antibiotics Adverse Reaction (Verified 10/03/18 00:07) Home Medications: Ambulatory Orders Bupropion HCl [Wellbutrin Xl] 150 mg PO DAILY 02/18/16 Simvastatin [Zocor] 20 mg PO DAILY 02/18/16 Amphetamine-Dextroamphetamine [Adderall] 20 mg PO DAILY PRN 10/16/16 Venlafaxine Xr [Effexor XR] 75 mg PO DAILY 10/16/16 Pantoprazole Sodium [Protonix] 20 mg PO BID #60 tab 08/28/17 Acetamin W/Cod #3 Tab [Tylenol w/CODEINE #3] 1 ea PO TID PRN #20 tab 08/17/18 Baclofen 20 mg PO BID #20 tab 08/17/18 Prochlorperazine Tab [Compazine Tab] 10 mg PO TID #20 tab 08/17/18 Acetamin W/Cod #3 Tab [Tylenol w/CODEINE #3] 1 ea PO Q6HRS PRN #14 tab 10/03/18 Methylprednisolone [Medrol Dose Jatinder] 4 mg PO DAILY 6 Days #21 tab 10/03/18 Review of Systems - Review of Systems Constitutional: States: no symptoms reported EENTM: States: no symptoms reported Respiratory: States: no symptoms reported Cardiology: States: no symptoms reported Gastrointestinal/Abdominal: States: no symptoms reported Genitourinary: States: no symptoms reported Musculoskeletal: States: no symptoms reported Skin: States: no symptoms reported Past Medical History (General) - Patient Medical History Hx Seizures: No Hx Stroke: No Hx Dementia: No Hx Asthma: No Hx of COPD: No Hx Cardiac Disorders: Yes - hypercholesterolemia Hx Congestive Heart Failure: No Hx Pacemaker: No Hx Hypertension: No Hx Thyroid Disease: No Hx Diabetes: No Hx Gastroesophageal Reflux: No Hx Renal Disease: No Hx Cancer: No Hx of HIV: No Hx Hepatitis C: No Hx MRSA: No MRSA Source:: Wound Surgical History: other - Vaccination History Hx Tetanus, Diphtheria Vaccination: Yes Hx Influenza Vaccination: Yes Hx Pneumococcal Vaccination: No - Social History Hx Tobacco Use: Yes Hx Chewing Tobacco Use: No Hx Alcohol Use: Yes - socially Hx Substance Use: No Hx Substance Use Treatment: No Hx Depression: Yes Hx Physical Abuse: No Hx Emotional Abuse: No Hx Suspected Abuse: No - Female History Patient : No Family Medical History - Family History Father Family History: Unknown Living Status: Unknown Hx Family Hypertension: Yes Physical Exam - Physical Exam General Appearance: Alert, No apparent distress, Other - speech fluent Eye Exam: bilateral normal Ears, Nose, Throat: hearing grossly normal, normal ENT inspection Neck: non-tender, full range of motion, supple, normal inspection Respiratory: chest non-tender, lungs clear, normal breath sounds, no respiratory distress Cardiovascular/Chest: normal peripheral pulses, regular rate, rhythm, no murmur Peripheral Pulses: radial,right: 2+, radial,left: 2+ Gastrointestinal/Abdominal: normal bowel sounds, non tender, soft Back Exam: normal inspection, no CVA tenderness Extremity: normal range of motion, no pedal edema, no calf tenderness Neurologic: no motor/sensory deficits, alert, oriented x 3 DTR: 1+: Brachioradialis, left, 2+: Brachioradialis, right Skin Exam: normal color, warm/dry Progress - Progress Progress: 10/03/18 00:34 Vital Signs - 8 hr 10/02/18 23:50 Temperature 98.0 F Pulse Rate [ 92 H monitor] Respiratory 20 Rate Blood Pressure 147/104 [Left Arm] O2 Sat by Pulse 95 Oximetry 10/03/18 01:[address] Biswas-Neurosurgeon who operated on patient in 2017 recommend Medrol dos jatinder and to call his clinic 2018 - Results/Orders Results/Orders: 10/03/18 00:07 Soft Tissue Neck w/wo Contrast [CT] Stat 10/03/18 00:09 Hold Metformin x 48Hrs [id number] 10/03/18 00:22 COMPLETE METABOLIC PROFILE Stat Laboratory Results - last 24 hr 10/03/18 00:22 WBC 6.4 RBC 4.11 L Hgb 12.6 L Hct 37.2 L MCV 90.4 MCH 30.6 MCHC 33.8 RDW 14.1 Plt Count 283 MPV 7.9 Absolute Neuts (auto) 2.70 Absolute Lymphs (auto) 2.80 Absolute Monos (auto) 0.50 Absolute Eos (auto) 0.30 Absolute Basos (auto) 0.10 Neutrophils % 42.1 Lymphocytes % 44.3 Monocytes % 8.4 Eosinophils % 4.3 Basophils % 0.9 Discuss 10/03/18 00:09 Hold Metformin x 48Hrs [id number] 10/03/18 01:33 HYDROcodone 10MG/APAP 325MG [[place] 10/325] 1 ea PO ONCE ONE Hydrocod/APAP 10/325 (ER Disp) [[place] 10/325 ER Dispense #3 tablets] 1 ea PO ONCE ONE predniSONE 30 mg PO ONCE ONE Laboratory Results - last 24 hr 10/03/18 10/03/18 00:22 00:22 WBC 6.4 RBC 4.11 L Hgb 12.6 L Hct 37.2 L MCV 90.4 MCH 30.6 MCHC 33.8 RDW 14.1 Plt Count 283 MPV 7.9 Absolute Neuts (auto) 2.70 Absolute Lymphs (auto) 2.80 Absolute Monos (auto) 0.50 Absolute Eos (auto) 0.30 Absolute Basos (auto) 0.10 Neutrophils % 42.1 Lymphocytes % 44.3 Monocytes % 8.4 Eosinophils % 4.3 Basophils % 0.9 Sodium 136 Potassium 3.6 Chloride 105 Carbon Dioxide 24 Anion Gap 10.6 L BUN 15 Creatinine 0.96 BUN/Creatinine Ratio 15.6 Random Glucose 115 H Serum Osmolality 273.7 L Calcium 8.4 Total Bilirubin 0.4 AST 23 ALT 29 Alkaline Phosphatase 98 Serum Total Protein 6.3 L Albumin 3.7 Globulin 2.6 Albumin/Globulin Ratio 1.4 - EKG/XRAY/CT CT Ordered: Yes - c- spine severe spinal stenosis c6-c7 Departure - Departure Clinical Impression: Spinal stenosis of cervical region, Radiculopathy of cervical spine Time of Disposition: 01:37 Disposition: Discharge to Home or Self Care Condition: Fair Departure Forms: ED Discharge - Pt. Copy, Patient Portal Self Enrollment Instructions: Spinal Stenosis (DC), Spinal Stenosis, Radiculopathy, Radiculopathy (DC) Referrals: Jose Ceballos MD [Primary Care Provider] - 1-2 Weeks Prescriptions: Acetamin W/Cod #3 Tab [Tylenol w/CODEINE #3] 1 ea PO Q6HRS PRN #14 tab PRN Reason: Pain Methylprednisolone [Medrol Dose Jatinder] 4 mg PO DAILY 6 Days #21 tab Home Medications: Ambulatory Orders Bupropion HCl [Wellbutrin Xl] 150 mg PO DAILY 02/18/16 Simvastatin [Zocor] 20 mg PO DAILY 02/18/16 Amphetamine-Dextroamphetamine [Adderall] 20 mg PO DAILY PRN 10/16/16 Venlafaxine Xr [Effexor XR] 75 mg PO DAILY 10/16/16 Pantoprazole Sodium [Protonix] 20 mg PO BID #60 tab 08/28/17 Acetamin W/Cod #3 Tab [Tylenol w/CODEINE #3] 1 ea PO TID PRN #20 tab 08/17/18 Baclofen 20 mg PO BID #20 tab 08/17/18 Prochlorperazine Tab [Compazine Tab] 10 mg PO TID #20 tab 08/17/18 Acetamin W/Cod #3 Tab [Tylenol w/CODEINE #3] 1 ea PO Q6HRS PRN #14 tab 10/03/18 Methylprednisolone [Medrol Dose Jatinder] 4 mg PO DAILY 6 Days #21 tab 10/03/18 Additional Instructions: Need to call up -Neurosurgeon 04 October 2018 for recheck ;return to Emergency Room for incontinence of urine or stool
--- NOTE | 2018-10-03 00:42 | CT ---
EXAM: CT neck with contrast. INDICATION: Burning sensation, weakness. TECHNIQUE: Contiguous axial CT images of the neck. Intravenous contrast: Present. DLP 782 mGy-cm. This exam was performed according to our departmental dose-optimization program, which includes automated exposure control, adjustment of the mA and/or kV according to patient size and/or use of iterative reconstruction technique. COMPARISON: None. FINDINGS: The alignment of the cervical spine is satisfactory. There is no acute fracture or subluxation. There are changes of interbody fusion at C4-C5 and C5-C6 and C6-C7. Changes of anterior fusion are noted at C6-C7. There are old tract lucencies from prior anterior cervical fusion at C4-C5. The craniocervical junction is intact. The odontoid process is intact. There is severe left-sided neural foraminal C6-C7. There is moderate left-sided neural foraminal narrowing at C3-C4. There is moderate right-sided neural foraminal narrowing C6-C7 and C7-T1 Prevertebral soft tissues are normal. The visualized lung apices are clear. Thyroid gland, [place] tonsils and visualized portions of the parotid glands are unremarkable. Epiglottis is normal. Vascular enhancement is unremarkable. IMPRESSION: No acute fracture or subluxation. Multilevel neural foraminal narrowing, as described above with severe left-sided neural foraminal narrowing at C6-C7. Electronically signed by: Grzegorz Mathew MD 10/03/2018 12:39 AM CDT Workstation: [id number]
[2018-10-03] MEDS ORDERED: HYDROcodone 10MG/APAP 325MG 1 EA TAB PO ONE (01:33)
[2018-10-03] MEDS ORDERED: predniSONE 10 MG TAB PO ONE (01:33)
[2018-10-03] MEDS: HYDROCOD/APAP 10/325 (ER DISP) # 3 tablets PO ONE ×2 (01:41→02:52)
[2018-10-03 07:13] VITALS: BP 108/82; TEMP 98.2; O2SAT 82
== END 2018-10-03 07:13 | disposition short-term general hospital (02) ==
LOC: ER 23:50
DX: M48.02 Spinal stenosis, cervical region (principal); M54.12 Radiculopathy, cervical region; F32.9 Major depressive disorder, single episode, unspecified; E78.00 Pure hypercholesterolemia, unspecified; Z87.891 Personal history of nicotine dependence; Z79.899 Other long term (current) drug therapy; Z88.2 Allergy status to sulfonamides
CPT/HCPCS: 36415; 70492; 80053; 85025; J2270; J7512

== ENCOUNTER 2018-10-23 22:55 | Emergency (ER) | payer MEDICARE, OTHER ==
[2018-10-23] MEDS ORDERED: methylPREDNISolone SODIUM SUC 125 MG/2 ML VIAL IM ONE (23:46)
[2018-10-23] MEDS ORDERED: HYDROcodone 10MG/APAP 325MG 1 EA TAB PO ONE (23:46)
--- NOTE | 2018-10-23 23:54 | ED.PDOC ---
History of Present Illness - General Chief Complaint: General Stated Complaint: neck and arm pain, weakness in legs Time Seen by Provider: 10/23/18 23:13 Source: patient, RN notes reviewed, Vital Signs reviewed, family Exam Limitations: no limitations - History of Present Illness Initial Comments: c/o recurring neck & back pain that was severe earlier tonight but less so now. When he has these spells it usually results from turning his neck or back a certain way. This can result in sudden loss of leg tone & falls. His said he fell on his face earlier tonight but that he wasn't injured. Tonight most of the problem was in his neck. He has recently been evaluated by a neurosurgeon & had an MRI. He denies bowel or bladder changes, paresthesias or saddle anesthesia. Timing/Duration: 1-3 hours Severity: moderate Improving Factors: nothing Worsening Factors: other - certain movements/positions Associated Symptoms: weakness Allergies/Adverse Reactions: Allergies Sulfa Antibiotics Adverse Reaction (Verified 10/03/18 00:07) Home Medications: Ambulatory Orders Bupropion HCl [Wellbutrin Xl] 450 mg PO DAILY 02/18/16 Venlafaxine Xr [Effexor XR] 300 mg PO DAILY 10/16/16 Quetiapine Fumarate [Seroquel] 600 mg PO BEDTIME 10/03/18 Methylprednisolone [Medrol Dose Jatinder] 4 mg PO DAILY 6 Days #21 tab 10/24/18 Review of Systems - Review of Systems Constitutional: States: no symptoms reported EENTM: States: no symptoms reported Respiratory: States: no symptoms reported Cardiology: States: no symptoms reported Gastrointestinal/Abdominal: States: no symptoms reported Genitourinary: States: no symptoms reported Musculoskeletal: States: see HPI Skin: States: no symptoms reported Neurological: States: see HPI Past Medical History (General) - Patient Medical History Hx Seizures: No Hx Stroke: No Hx Dementia: No Hx Asthma: No Hx of COPD: No Hx Cardiac Disorders: Yes - hypercholesterolemia Hx Congestive Heart Failure: No Hx Pacemaker: No Hx Hypertension: No Hx Thyroid Disease: No Hx Diabetes: No Hx Gastroesophageal Reflux: No Hx Renal Disease: No Hx Cancer: No Hx of HIV: No Hx Hepatitis C: No Hx MRSA: No MRSA Source:: Wound - Vaccination History Hx Tetanus, Diphtheria Vaccination: Yes Hx Influenza Vaccination: Yes Hx Pneumococcal Vaccination: No - Social History Hx Tobacco Use: Yes Hx Chewing Tobacco Use: No Hx Alcohol Use: Yes - socially Hx Substance Use: No Hx Substance Use Treatment: No Hx Depression: Yes Hx Physical Abuse: No Hx Emotional Abuse: No Hx Suspected Abuse: No - Female History Patient : No Family Medical History - Family History Father Family History: Unknown Living Status: Unknown Hx Family Hypertension: Yes Physical Exam - Physical Exam General Appearance: Alert, Comfortable, No apparent distress Eye Exam: bilateral normal Ears, Nose, Throat: hearing grossly normal, normal ENT inspection Neck: non-tender, supple, normal inspection, limited range of motion - pain with neck rotation of ROM Respiratory: no respiratory distress Back Exam: normal inspection, no vertebral tenderness Extremity: normal range of motion, normal inspection, no pedal edema 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 It appears that he has been unable to get to see one without a referral from a PCP who reportedly has not answered his calls. He was also seen by neurosurgery 3 weeks ago & told his condition is nonoperative (he has a cervical fusion). [facility]. [facility] the [facility]. I find nothing acute tonight other than his reports of pain. I will initiate the previous treatment plan for this & have directed him to f/u with his PCP on Thursday to obtain the referral. Departure - Departure Clinical Impression: Spinal stenosis of cervical region, Cervical radiculopathy due to osteoarthritis of spine Time of Disposition: 00:00 Disposition: Discharge to Home or Self Care Condition: Fair Departure Forms: ED Discharge - Pt. Copy, Patient Portal Self Enrollment Activity: walking as tolerated Referrals: Jose Ceballos MD [Primary Care Provider] - 10/25/18 Prescriptions: Methylprednisolone [Medrol Dose Jatinder] 4 mg PO DAILY 6 Days #21 tab Home Medications: Ambulatory Orders Bupropion HCl [Wellbutrin Xl] 450 mg PO DAILY 02/18/16 Venlafaxine Xr [Effexor XR] 300 mg PO DAILY 10/16/16 Quetiapine Fumarate [Seroquel] 600 mg PO BEDTIME 10/03/18 Methylprednisolone [Medrol Dose Jatinder] 4 mg PO DAILY 6 Days #21 tab 10/24/18
[2018-10-24] MEDS ORDERED: HYDROCOD/APAP 5/325 (ER DISP) #3 TAB PO ONE (00:02)
[2018-10-24 00:19] VITALS: BP 120/91; TEMP 98; O2SAT 95
== END 2018-10-24 00:15 | disposition home or self-care (01) ==
LOC: ER 22:55
DX: M48.02 Spinal stenosis, cervical region (principal); M47.22 Other spondylosis with radiculopathy, cervical region; F32.9 Major depressive disorder, single episode, unspecified; E78.00 Pure hypercholesterolemia, unspecified; Z87.891 Personal history of nicotine dependence; Z79.899 Other long term (current) drug therapy; Z88.2 Allergy status to sulfonamides

== ENCOUNTER 2018-12-11 20:18 | Emergency (ER) | payer MEDICARE, OTHER ==
[2018-12-11 20:31] VITALS: BP 119/85; TEMP 98.2; O2SAT 94
[2018-12-11] MEDS ORDERED: predniSONE 20 MG TAB PO ONE (20:43)
--- NOTE | 2018-12-11 20:46 | ED.PDOC ---
History of Present Illness - General Chief Complaint: Upper Extremity Injury Stated Complaint: Left thumb twitching Time Seen by Provider: 12/11/18 20:21 Source: patient Exam Limitations: no limitations - History of Present Illness Initial Comments: the patient is a 53-year-old male presenting to emergency room secondary to what is essentially a trigger finger of his left thumb. He has had issues with this for the past year or so. He is actually set up to see orthopedics on Thursday. He did receive an injection with his primary care doctor a few days ago at the site. No evidence of infection. It is not locked into position at this time. He is not wearing his thumb spica. Timing/Duration: unsure Severity: moderate Improving Factors: nothing Worsening Factors: movement Associated Symptoms: denies symptoms Allergies/Adverse Reactions: Allergies Sulfa Antibiotics Adverse Reaction (Verified 10/03/18 00:07) Home Medications: Ambulatory Orders Bupropion HCl [Wellbutrin Xl] 450 mg PO DAILY 02/18/16 Venlafaxine Xr [Effexor XR] 300 mg PO DAILY 10/16/16 Quetiapine Fumarate [Seroquel] 600 mg PO BEDTIME 10/03/18 Methylprednisolone [Medrol Dose Jatinder] 4 mg PO DAILY 6 Days #21 tab 10/24/18 predniSONE [Prednisone] 20 mg PO DAILY #5 tab 12/11/18 Review of Systems - Review of Systems Constitutional: States: no symptoms reported EENTM: States: no symptoms reported Respiratory: States: no symptoms reported Cardiology: States: no symptoms reported Gastrointestinal/Abdominal: States: no symptoms reported Genitourinary: States: no symptoms reported Musculoskeletal: States: see HPI Skin: States: no symptoms reported Neurological: States: no symptoms reported Endocrine: States: no symptoms reported All other Systems: No Change from Baseline Past Medical History (General) - Patient Medical History Hx Seizures: No Hx Stroke: No Hx Dementia: No Hx Asthma: No Hx of COPD: No Hx Cardiac Disorders: Yes - hypercholesterolemia Hx Congestive Heart Failure: No Hx Pacemaker: No Hx Hypertension: No Hx Thyroid Disease: No Hx Diabetes: No Hx Gastroesophageal Reflux: No Hx Renal Disease: No Hx Cancer: No Hx of HIV: No Hx Hepatitis C: No Hx MRSA: No MRSA Source:: Wound Surgical History: appendectomy, other - Vaccination History Hx Tetanus, Diphtheria Vaccination: Yes Hx Influenza Vaccination: Yes Hx Pneumococcal Vaccination: No Immunizations Up to Date: Yes - Social History Hx Tobacco Use: Yes Hx Chewing Tobacco Use: No Hx Alcohol Use: Yes - socially Hx Substance Use: No Hx Substance Use Treatment: No Hx Depression: Yes Feels Threatened In Home Enviroment: No Feels Threatened In a Relationship: No Hx Physical Abuse: No Hx Emotional Abuse: No Hx Suspected Abuse: No - Activities of Daily Living Hospice Agency (if applicable):: None - Female History Patient : No - Triage Comment ED Triage Comment: Pt states that his left thumb has been twitching for two months. Pt states that he has been seeing his primary care physician about problem. Pt states that he received a lidocaine injection last week and today it is twitching even more. Pt also states that left thumb intermittently locks up and won't move. Family Medical History - Family History Father Family History: Unknown Living Status: Unknown Hx Family Hypertension: Yes Physical Exam - Physical Exam General Appearance: Alert, Comfortable, No apparent distress Eye Exam: bilateral normal Ears, Nose, Throat: hearing grossly normal Respiratory: no respiratory distress, no accessory muscle use Cardiovascular/Chest: normal peripheral pulses, no edema Peripheral Pulses: radial,right: 2+, radial,left: 2+ Rectal Exam: deferred Extremity: normal range of motion, no pedal edema, normal capillary refill, other - tenderness to palpation over the palmar area above the medical carpophalangeal joint on the left. No skin changes. 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 It is not entrapped at this point but it is causing some pain. He has already received an injection recently with his primary care doctor. We will place patient on 5 days of oral prednisone with the first dose given here. He needs to keep follow-up with his orthopedist on Thursday. He needs to wear the thumb spica. ER warnings were given. Departure - Departure Clinical Impression: Stenosing tenosynovitis of thumb Disposition: Discharge to Home or Self Care Condition: Fair Departure Forms: ED Discharge - Pt. Copy, Patient Portal Self Enrollment Instructions: Trigger Finger Diet: regular diet Activity: no pushing/pulling with affected limb Referrals: Jose Ceballos MD [Primary Care Provider] - 1-2 Weeks Prescriptions: predniSONE [Prednisone] 20 mg PO DAILY #5 tab Home Medications: Ambulatory Orders Bupropion HCl [Wellbutrin Xl] 450 mg PO DAILY 02/18/16 Venlafaxine Xr [Effexor XR] 300 mg PO DAILY 10/16/16 Quetiapine Fumarate [Seroquel] 600 mg PO BEDTIME 10/03/18 Methylprednisolone [Medrol Dose Jatinder] 4 mg PO DAILY 6 Days #21 tab 10/24/18 predniSONE [Prednisone] 20 mg PO DAILY #5 tab 12/11/18 Additional Instructions: the patient's a 53-year-old male presenting to emergency room secondary to recurrent stenosing tenosynovitis of the flexor mechanism of the left thumb. It is not entrapped at this point but it is causing some pain. He has already received an injection recently with his primary care doctor. We will place patient on 5 days of oral prednisone with the first dose given here. He needs to keep follow-up with his orthopedist on Thursday. He needs to wear the thumb spica. ER warnings were given.
== END 2018-12-11 20:54 | disposition home or self-care (01) ==
LOC: ER 20:18
DX: M65.842 Other synovitis and tenosynovitis, left hand (principal); E78.00 Pure hypercholesterolemia, unspecified; F32.9 Major depressive disorder, single episode, unspecified; Z79.899 Other long term (current) drug therapy; Z88.2 Allergy status to sulfonamides; Z87.891 Personal history of nicotine dependence

== ENCOUNTER 2019-01-08 22:04 | Emergency (ER) | payer MEDICARE, OTHER ==
[2019-01-08] MEDS ORDERED: ASPIRIN TABLET 325 MG TAB PO ONE (22:06)
[2019-01-08] MEDS: NITROGLYCERIN 0.4 MG 25 EA TAB SL ONE ×3 (22:09→22:44)
--- NOTE | 2019-01-08 22:24 | ED.PDOC ---
History of Present Illness - General Chief Complaint: Chest Pain/IN Stated Complaint: Chest pain onset 1 hour ago Time Seen by Provider: 01/08/19 22:07 Source: patient Exam Limitations: no limitations - History of Present Illness Initial Comments: Surinder Parikh 53 y/o male came to ER with chest tightness radiating to his left axilla and between shoulder blades while watching TV about an hour ago with SOB.He had Thallium stress testing done showing abnormal apical wall 06 Feb 2017 and also had cardiac cath done after he had another bout of CP symptoms same period at [facility] 14 feb 2017-normal coronaries;diastolic dysfunction Timing/Duration: 1 hour Severity: moderate Location: central Activities at Onset: rest Prior Chest Pain/Cardiac Workup: angina, cardiac cath, echocardiography, thallium scan Improving Factors: nothing Worsening Factors: nothing Nitro Today/Relief: 0.4 mg x 2, provided by ED Aspirin Treatment Today: 81 mg x 4, provided by ED Associated Symptoms: shortness of breath Allergies/Adverse Reactions: Allergies Sulfa Antibiotics Adverse Reaction (Verified 01/08/19 22:20) Home Medications: Ambulatory Orders Bupropion HCl [Wellbutrin Xl] 450 mg PO DAILY 02/18/16 Venlafaxine Xr [Effexor XR] 300 mg PO DAILY 10/16/16 Quetiapine Fumarate [Seroquel] 600 mg PO BEDTIME 10/03/18 Methylprednisolone [Medrol Dose Jatinder] 4 mg PO DAILY 6 Days #21 tab 10/24/18 predniSONE [Prednisone] 20 mg PO DAILY #5 tab 12/11/18 Review of Systems - Review of Systems Cardiology: States: see HPI All other Systems: Reviewed and Negative, No Change from Baseline Past Medical History (General) - Patient Medical History Hx Seizures: No Hx Stroke: No Hx Dementia: No Hx Asthma: No Hx of COPD: No Hx Cardiac Disorders: Yes - hypercholesterolemia Hx Congestive Heart Failure: No Hx Pacemaker: No Hx Hypertension: No Hx Thyroid Disease: No Hx Diabetes: No Hx Gastroesophageal Reflux: No Hx Renal Disease: No Hx Cancer: No Hx of HIV: No Hx Hepatitis C: No Hx MRSA: No Hx Other PMH: Yes - PTSD MRSA Source:: Wound Surgical History: appendectomy, tonsillectomy, other - c-spine - Vaccination History Hx Tetanus, Diphtheria Vaccination: Yes Hx Influenza Vaccination: Yes Hx Pneumococcal Vaccination: No - Social History Hx Tobacco Use: Yes Hx Chewing Tobacco Use: No Hx Alcohol Use: Yes - socially Hx Substance Use: No Hx Substance Use Treatment: No Hx Depression: Yes Hx Physical Abuse: No Hx Emotional Abuse: No Hx Suspected Abuse: No - Female History Patient : No Family Medical History - Family History Father Family History: Unknown Living Status: Unknown Hx Family Hypertension: Yes Physical Exam - Physical Exam General Appearance: Alert, Comfortable, No apparent distress Eyes, Ears, Nose, Throat Exam: normal ENT inspection Neck: non-tender, supple, normal inspection Respiratory: lungs clear, normal breath sounds, no respiratory distress Cardiovascular/Chest: normal peripheral pulses, regular rate, rhythm, no gallop, no murmur Peripheral Pulses: radial,right: 2+, radial,left: 2+ Gastrointestinal/Abdominal: non tender, soft Extremity: no pedal edema, no calf tenderness Neurologic: alert, oriented x 3 Skin Exam: normal color, warm/dry Progress - Progress Progress: 01/08/19 22:48 Vital Signs - 8 hr 01/08/19 01/08/19 01/08/19 22:04 22:05 22:12 Temperature 97.2 F L Pulse Rate 84 Pulse Rate [ 99 H monitor] Respiratory 20 20 Rate Blood Pressure 135/93 [Right Arm] O2 Sat by Pulse 97 93 L Oximetry 01/08/19 22:32 Temperature Pulse Rate Pulse Rate [ 92 H monitor] Respiratory 16 Rate Blood Pressure 134/93 [Right Arm] O2 Sat by Pulse 97 Oximetry 01/09/19 00:03 Had 3 NTG 0.4 mg SL but still with chest tightness;BP went down given 1L IVF bolus LR - Results/Orders Results/Orders: 01/08/19 22:06 Telemetry .ONCE EKG Stat Pulse Ox Stat 01/08/19 23:50 TROPONIN-I Stat Laboratory Results - last 24 hr 01/08/19 22:15 WBC 5.9 RBC 4.40 L Hgb 13.6 L Hct 40.0 L MCV 90.8 MCH 31.0 MCHC 34.1 RDW 14.8 H Plt Count 260 MPV 7.8 Absolute Neuts (auto) 2.30 Absolute Lymphs (auto) 2.80 Absolute Monos (auto) 0.50 Absolute Eos (auto) 0.20 Absolute Basos (auto) 0.10 Neutrophils % 39.3 L Lymphocytes % 47.3 Monocytes % 8.3 Eosinophils % 4.1 Basophils % 1.0 PT 9.7 INR 0.97 PTT (SP) 28.8 Sodium 137 Potassium 3.6 Chloride 103 Carbon Dioxide 24 Anion Gap 13.6 BUN 14 Creatinine 1.18 BUN/Creatinine Ratio 11.9 Random Glucose 109 H Serum Osmolality 274.9 L Calcium 9.2 Magnesium 2.0 Creatine Kinase 198 H CK-MB (CK-2) 1.8 CK-MB (CK-2) % Not Reportable Troponin I < 0.02 B-Natriuretic Peptide 8.5 - EKG/XRAY/CT EKG: Sinus, nonspecific ST T wave Chg, Unchanged from - 16 October 2016;;01 mar 2018 Comments: HR-85 XRAY: chest - no acute cardiopulmonary process Departure - Departure Clinical Impression: Unstable angina Time of Disposition: 00:08 Disposition: Transfer to Hospital Condition: Fair Departure Forms: Patient Portal Self Enrollment Instructions: DI for Chest Pain Referrals: Jose Ceballos MD [Primary Care Provider] - 1-2 Weeks Home Medications: Ambulatory Orders Bupropion HCl [Wellbutrin Xl] 450 mg PO DAILY 02/18/16 Venlafaxine Xr [Effexor XR] 300 mg PO DAILY 10/16/16 Quetiapine Fumarate [Seroquel] 600 mg PO BEDTIME 10/03/18 Methylprednisolone [Medrol Dose Jatinder] 4 mg PO DAILY 6 Days #21 tab 10/24/18 predniSONE [Prednisone] 20 mg PO DAILY #5 tab 12/11/18 Transfer to Outside Facility - Transfer Information Accepting Provider:: -Hospitalist Accepting Facility: [facility] 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
--- NOTE | 2019-01-08 22:36 | RAD ---
EXAM: XR Chest, 1 View CLINICAL HISTORY: The patient is 53 years old and is Male; chest pain TECHNIQUE: Frontal view of the chest. COMPARISON: Chest radiograph August 14, 2018. FINDINGS: LUNGS: Unremarkable. No consolidation. PLEURAL SPACE: Unremarkable. No pneumothorax. HEART: Unremarkable. No cardiomegaly. MEDIASTINUM: Unremarkable. BONES/JOINTS: A right shoulder prosthesis is partially visualized. Postsurgical change of the lower cervical spine is noted. IMPRESSION: No acute cardiopulmonary process. Electronically signed by: Bebe Crain MD 01/08/2019 10:33 PM CDT
[2019-01-08] MEDS ORDERED: MORPHINE SULFATE INJ 10 MG/ML VIAL IV ONE (22:54)
[2019-01-08] MEDS ORDERED: SODIUM CHLORIDE 0.9% 1000ML 1,000 ML IVS ONE (22:54)
[2019-01-09] MEDS ORDERED: MORPHINE SULFATE INJ 10 MG/ML VIAL IV ONE (00:21)
[2019-01-09] MEDS ORDERED: ENOXAPARIN SODIUM 100 MG/ML SYG SUBCU ONE (00:26)
[2019-01-09 00:44] VITALS: BP 142/80; TEMP 97.7; O2SAT 98
== END 2019-01-09 00:57 | disposition short-term general hospital (02) ==
LOC: ER 22:04
DX: I20.0 Unstable angina (principal); R06.02 Shortness of breath; E78.00 Pure hypercholesterolemia, unspecified; F43.10 Post-traumatic stress disorder, unspecified; F32.9 Major depressive disorder, single episode, unspecified; Z87.891 Personal history of nicotine dependence; Z79.899 Other long term (current) drug therapy; Z88.2 Allergy status to sulfonamides
CPT/HCPCS: 36415; 71045; 80048; 82550; 82553; 83880; 84484; 85025; 85610; 85730; 93005; 94760; J1650; J2270; J7030

== ENCOUNTER → 2019-01-10 | Outpatient (CLI) | payer MEDICARE, OTHER | LOC: LAB.O 13:13 | PROVIDERS: ATTEND Orthopaedic Surgery | DX: Z01.818 Encounter for other preprocedural examination (principal) ==

== ENCOUNTER 2019-01-19 05:47 | Day surgery (SDC) | payer MEDICARE, OTHER ==
--- NOTE | 2019-01-14 09:24 | HP ---
CHIEF COMPLAINT: Left thumb pain. HISTORY OF PRESENT ILLNESS: Mr. Parikh is a 53-year-old male with a history of pain in the left thumb. Mr. Parikh has had pain and clicking with associated locking going on for over 3 months. He has had no trauma related to this, denies any radiation of pain and denies any neurologic symptoms. Because of his ongoing symptoms, he has requested operative intervention. After discussing the risks, benefits and alternatives to operative therapy, he has given informed consent for trigger thumb release. PAST SURGICAL HISTORY: 1. Multiple shoulder surgeries. 2. Right shoulder replacement. 3. Ankle surgeries. 4. Knee surgeries. MEDICATIONS: 1. Baclofen. 2. Prednisone. 3. Venlafaxine. PAIN CONTRACT: The patient is not under a current pain contract. ALLERGIES: SULFA. CODE STATUS: Full code. IMMUNIZATIONS: Up to date. SOCIAL HISTORY: The patient does not smoke or use any illicit drugs. He does drink on occasion. FAMILY HISTORY: None pertinent to today's complaint. REVIEW OF SYSTEMS: Negative except as indicated in the History of Present Illness. PHYSICAL EXAMINATION: VITAL SIGNS: Blood pressure 125/81. Pulse 92. Height 6'. Weight 206 pounds. MENTAL STATUS: The patient is awake, alert, and is able to give a good history and participate in the physical. The patient is oriented to person, place and time. SKIN: Normal tone and turgor. MUSCULOSKELETAL: He has palpable clicking and pain at the A1 alexandra. He has intact sensation throughout the extremity. He does maintain full range of motion although he has pain with flexion and extension of the thumb. There is no deformity or malalignment. ASSESSMENT: 1. Trigger thumb. PLAN: The plan at this point is for trigger finger release. We have discussed the risks, benefits, and alternatives to that and the patient has given informed consent. #[id number] MTDD
[2019-01-19] MEDS ORDERED: LACTATED RINGERS 1,000 ML ONE (06:02)
[2019-01-19] MEDS ORDERED: ceFAZolin SODIUM 1 GM VIAL ONE ×2 (06:03→09:49)
[2019-01-19] MEDS ORDERED: SODIUM CHL 0.9% 100ML MINI-BAG 100 ML IVPB ONE (06:03)
[2019-01-19] MEDS ORDERED: LACTATED RINGERS 1,000 ML IVS ONE (06:17)
[2019-01-19] MEDS ORDERED: DEXAMETHASONE INJ 10 MG/ML VIAL ONE (07:00)
[2019-01-19] MEDS ORDERED: PROPOFOL 200 MG/20 ML VIAL IV ONE (07:00)
[2019-01-19] MEDS ORDERED: LIDOCAINE 1% 10 ML VIAL INJ ONE (07:00)
[2019-01-19] MEDS ORDERED: LIDOCAINE 1% 50 ML VIAL INJ ONE (09:49)
[2019-01-19] MEDS ORDERED: VANCOMYCIN HCL INJ 1,000 MG VIAL IVPB ONE (09:49)
[2019-01-19] MEDS ORDERED: BUPIVACAINE 0.25% INJ 30 ML VIAL INJ ONE (09:49)
[2019-01-19] MEDS ORDERED: fentaNYL CITRATE INJ 50 MCG/ML AMP ONE (09:50)
[2019-01-19] MEDS ORDERED: KETAMINE HCL 100 MG/ML VIAL ONE (09:50)
[2019-01-19] MEDS ORDERED: MIDAZOLAM INJ 2 MG/2 ML VIAL ONE (09:50)
[2019-01-19 11:38] VITALS: BP 120/64; TEMP 96.8; O2SAT 98
--- NOTE | 2019-01-20 08:36 | OP ---
DATE OF PROCEDURE: 01/19/19 PREOPERATIVE DIAGNOSIS: 1. Trigger thumb. POSTOPERATIVE DIAGNOSIS: 1. Trigger thumb. PROCEDURE: 1. Trigger finger release. SURGEON: Elver Lemons MD. WATER METER MECHANIC: You Bangura CST, SA-C. ANESTHESIA: Local with sedation. COMPLICATIONS: None. FINDINGS: Triggering at the A1 alexandra. INDICATION: Mr. Parikh has a history of pain and triggering at the A1 alexandra. We talked about options for him and because of ongoing symptoms and pain associated with this condition, he has requested operative intervention. After discussing the risks, benefits and alternatives to operative therapy, the patient has given informed consent for trigger finger release. PROCEDURE: The patient was brought to the Operating Room and placed in the supine position. Sedation was administered and local anesthetic was injected into the operative area. Following injection, the arm was sterilely prepped and draped. A transverse incision was made directly overlying the A1 alexandra of the triggering digit and blunt dissection was carried down to the alexandra while protecting the digital nerves. After identification of the alexnadra, the alexandra was transected and a [place] elevator was passed both proximally and distally to ensure complete release. The finger was flexed and extended and there was no evidence of locking or clicking. The wound was thoroughly irrigated and closed with Nylon suture. A sterile dressing was placed and the patient was taken to the Day Surgery Unit. POSTOPERATIVE PLAN: The patient has been encouraged to do range of motion of the digits and will followup with us in two days. #[id number] MTDD
== END 2019-01-19 11:30 | disposition home or self-care (01) ==
LOC: AMB 05:47
PROVIDERS: ATTEND Orthopaedic Surgery
DX: M65.312 Trigger thumb, left thumb (principal); Z96.611 Presence of right artificial shoulder joint; Z88.2 Allergy status to sulfonamides; Z79.899 Other long term (current) drug therapy
CPT/HCPCS: 01810; 26055; 80307; J0690; J1100; J2250; J3010; J3370; J3490; J7050; J7120